=== PATIENT | female | born 1985 | race Caucasian/White ===

== ENCOUNTER 2016-12-08 15:33 | Outpatient (CLI) | payer OTHER | END 2016-12-08 15:34 | disposition home or self-care (01) | DX: G43.909 Migraine, unspecified, not intractable, without status migrainosus (principal) ==

== ENCOUNTER 2017-06-22 09:19 | Emergency (ER) | payer OTHER, MEDICAID ==
[2017-06-22] MEDS ORDERED: SODIUM CHLORIDE 0.9% 1,000 ML IV ONE (10:46)
[2017-06-22] MEDS ORDERED: diphenhydrAMINE INJ 50 MG/ML VIAL IVP STA (10:46)
[2017-06-22] MEDS ORDERED: PROCHLORPERAZINE 10 MG/2 ML VIAL IVP STA (10:46)
[2017-06-22] MEDS ORDERED: ACETAMINOPHEN 1,000 MG/100 ML 100 ML IV STA (10:47)
[2017-06-22] MEDS ORDERED: DEXAMETHASONE 10 MG/ML VIAL IVP STA (10:47)
--- NOTE | 2017-06-22 10:50 | ED Physician Documentation ---
PD HPI HEADACHE - Stated complaint Stated Complaint: HEADACHE - Chief complaint Chief Complaint: Neuro - History obtained from History obtained from: Patient - History of Present Illness Timing - onset: Last night Timing - details: Gradual onset Worst headache ever?: Worst headache ever? (No) Location: Global Associated symptoms: Nausea. No: Fever, Vomiting, Weakness, Numbness Similar symptoms before: Diagnosis (migraines) - Treatment prior to arrival Treatment prior to arrival: Flovatryptan x 3, without relief. - Additional information Additional information: The patient is a 32-year-old female with history of migraine headaches who presents with headache that started last night and continues today. It was gradual in onset. It is global, but more on the right side than the left. She denies fever, but reports photosensitivity and nausea. She denies vomiting. She has taken flovatriptan 3, without relief. Her last similar headache was about 6 months ago. Review of Systems Constitutional: denies: Fever Eyes: reports: Photophobia Ears: denies: Tinnitus/ringing Nose: denies: Congestion Throat: denies: Sore throat Cardiac: denies: Chest pain / pressure Respiratory: denies: Dyspnea, Cough GI: reports: Nausea. denies: Abdominal Pain, Vomiting : denies: Dysuria Skin: denies: Rash Musculoskeletal: denies: Back pain Neurologic: reports: Headache. 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 - Present Medications Home Medications: Ambulatory Orders Medication Instructions Recorded Confirmed HYDROcod/ACETAM 5/325 [[place] 5/325] 1 - 2 ea PO Q6H PRN #15 tablet 07/31/15 Orthotri Nesa 1 tab ORAL DAILY 07/31/15 07/31/15 Amitriptyline HCl 100 mg PO DAILY 07/03/16 07/03/16 Meloxicam [Mobic] 7.5 mg PO 07/03/16 Verapamil HCl [Verapamil ER] 120 mg PO DAILY 07/03/16 07/03/16 - Allergies Allergies/Adverse Reactions: Allergies Allergy/AdvReac Type Severity Reaction Status Date / Time iodine Allergy Rash Verified 07/31/15 10:41 - Social History Does the pt smoke?: No Smoking Status: Never smoker Does the pt drink ETOH?: No Does the pt have substance abuse?: No - Immunizations Immunizations are current?: Yes PD ED PE NORMAL - Vitals Vital signs reviewed: Yes (Mild hypertension.) - General General: Alert and oriented X 3, Well developed/nourished - HEENT HEENT: Atraumatic, PERRL, EOMI, Ears normal, Pharynx benign, Other (Fundi with sharp disc margins, without papilledema.) - Neck Neck: Supple, no meningeal sign, No adenopathy, No JVD - Cardiac Cardiac: RRR, No murmur - Respiratory Respiratory: No respiratory distress, Clear bilaterally - Abdomen Abdomen: Soft, Non tender - Back Back: No CVA TTP - Derm Derm: No rash - Extremities Extremities: No edema, No calf tenderness / cord - Neuro Neuro: Alert and oriented X 3, No motor deficit, No sensory deficit Results - Vitals Vitals: Oxygen O2 Source Room air PD MEDICAL DECISION MAKING - ED course Complexity details: reviewed old records, reviewed results, re-evaluated patient , considered differential, d/w patient ED course: The patient's presentation is significant for headache, most likely caused by migraine. There is no clinical evidence to suggest intracranial hemorrhage, meningitis, temporal arteritis, nor pseudotumor cerebri. Treatment in the emergency department included administration of normal saline 1 L IV, Compazine 10 mg IV, Benadryl 25 mg IV, dexamethasone 10 mg IV, and acetaminophen 1 g IV. The patient's symptoms completely resolved with the above treatment. I discussed with her potentially exacerbating factors, outpatient follow-up, as well as potentially worrisome signs or symptoms that should prompt reevaluation in the emergency department. Departure - Departure Disposition: 01 Home, Self Care Clinical Impression: Migraine Qualifiers: Migraine type: unspecified Status migrainosus presence: without status migrainosus Intractability: not intractable Qualified Code(s): G43.909 - Migraine, unspecified, not intractable, without status migrainosus Condition: Stable Instructions: ED Headache Migraine Follow-Up: Tara Vergara DO [Primary Care Provider] - Comments: Drink plenty of fluids. Continue to use Frova triptan as prescribed if needed for recurrent headache. Follow-up with your primary physician within 2 weeks. Call to schedule appointment. Return to the emergency department if you develop increasing headache, persistent vomiting, or otherwise worsening symptoms. Discharge Date/Time: 06/22/17 12:36
[2017-06-22] MEDS ORDERED: diphenhydrAMINE INJ 50 MG/ML VIAL ONE (11:02)
[2017-06-22] MEDS ORDERED: PROCHLORPERAZINE 10 MG/2 ML VIAL ONE (11:03)
[2017-06-22] MEDS ORDERED: DEXAMETHASONE 10 MG/ML VIAL ONE (11:03)
[2017-06-22] MEDS ORDERED: ACETAMINOPHEN 1,000 MG/100 ML 100 ML IV ONE (11:03)
[2017-06-22] MEDS ORDERED: SODIUM CHLORIDE FLUSH 0.9% 10 ML SYRINGE IVP ONE (11:03)
[2017-06-22 11:46] VITALS: BP 129/81
== END 2017-06-22 12:36 | disposition home or self-care (01) ==
LOC: ED 09:19
DX: G43.909 Migraine, unspecified, not intractable, without status migrainosus (principal); R11.0 Nausea; H53.149 Visual discomfort, unspecified
CPT/HCPCS: 96374; 96375; 99283; 99284; J0131

== ENCOUNTER 2017-07-31 11:59 | Emergency (ER) | payer OTHER, MEDICAID ==
[2017-07-31] MEDS ORDERED: MAG HYDROX/AL HYDROX/SIMETH 30 ML UDC PO STA (14:16)
[2017-07-31] MEDS ORDERED: LIDOCAINE VISCOUS 2% 15 ML UDC MM STA (14:16)
--- NOTE | 2017-07-31 14:19 | ED Physician Documentation ---
PD HPI CHEST PAIN - Stated complaint Stated Complaint: CP X1 WK - Chief complaint Chief Complaint: General - History obtained from History obtained from: Patient - History of Present Illness Timing - onset: How many weeks ago (1) Timing - onset during: Rest Timing - duration: Weeks (1) Timing - details: Gradual onset, Still present, Waxing and waning Quality: Pressure, Tightness Location: Substernal Radiation: Back Improved by: Nothing Worsened by: Other (nothing) Associated symptoms: Cough. No: Shortness of air, Diaphoresis, Nausea, Vomiting , Feeling faint / dizzy, General Weakness, Palpitations Similar symptoms before: Has not had sx before Recently seen: Not recently seen - Additional information Additional information: 32-year-old female is developed pain in the central chest with radiation to her back for the past week. She has had this pain in episodes lasting 4-5 hours. She does not think this is related to eating food. She has had a cough nonproductive of sputum and she has not had fever chills or sweats. Review of Systems Constitutional: denies: Fever, Chills, Myalgias Eyes: denies: Decreased vision Ears: denies: Ear pain Nose: denies: Congestion Throat: denies: Sore throat Cardiac: reports: Chest pain / pressure. denies: Palpitations Respiratory: reports: Cough. 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 - Present Medications Home Medications: Ambulatory Orders Medication Instructions Recorded Confirmed HYDROcod/ACETAM 5/325 [[place] 5/325] 1 - 2 ea PO Q6H PRN #15 tablet 07/31/15 Orthotri Nesa 1 tab ORAL DAILY 07/31/15 07/31/15 Amitriptyline HCl 100 mg PO DAILY 07/03/16 07/03/16 Meloxicam [Mobic] 7.5 mg PO 07/03/16 Verapamil HCl [Verapamil ER] 120 mg PO DAILY 07/03/16 07/03/16 - Allergies Allergies/Adverse Reactions: Allergies Allergy/AdvReac Type Severity Reaction Status Date / Time iodine Allergy Rash Verified 07/31/15 10:41 - Social History Does the pt smoke?: No Smoking Status: Never smoker Does the pt drink ETOH?: No Does the pt have substance abuse?: No - Immunizations Immunizations are current?: Yes PD ED PE NORMAL - Vitals Vital signs reviewed: Yes (hypertensive) - General General: Alert and oriented X 3, No acute distress, Well developed/nourished - HEENT HEENT: Atraumatic, PERRL, EOMI, Ears normal, Moist mucous membranes, Pharynx benign, Dentition benign - Neck Neck: Supple, no meningeal sign, No bony TTP - Cardiac Cardiac: RRR, No murmur - Respiratory Respiratory: No respiratory distress, Clear bilaterally, Other (no chest wall pain to palpation ) - Abdomen Abdomen: Soft, Non tender - Back Back: No CVA TTP, No spinal TTP - Derm Derm: Normal color, Warm and dry, No rash - Extremities Extremities: No deformity, No edema - Neuro Neuro: No motor deficit, No sensory deficit - Psych Psych: Normal mood, Normal affect Results - Vitals Vitals: Vital Signs - 24 hr 07/31/17 07/31/17 07/31/17 12:07 13:43 15:05 Temperature 36.1 C L 35.9 C L 36.3 C L Heart Rate 91 95 100 Respiratory 18 16 18 Rate Blood Pressure 139/96 H 135/69 H 129/96 H O2 Saturation 100 99 Oxygen O2 Source Room air - EKG (time done) 1222 Rate: Rate (enter#) (97) Rhythm: NSR Ischemia: Normal ST segments Compare to prior EKG: Old EKG unavailable Computer interpretation: Agree with computer - Labs Labs: Laboratory Tests 07/31/17 07/31/17 07/31/17 14:30 14:30 14:30 WBC 8.6 RBC 4.77 Hgb 14.0 Hct 40.9 MCV 85.7 MCH 29.3 MCHC 34.2 RDW 12.8 Plt Count 298 MPV 6.7 L Neut # 5.5 Lymph # 2.4 [place] # 0.6 Eos # 0.1 Baso # 0.0 Absolute Nucleated RBC 0.00 Nucleated RBC % 0.0 D-Dimer Sodium 138 Potassium 3.9 Chloride 103 Carbon Dioxide 27 Anion Gap 8.0 BUN 10 Creatinine 0.7 Estimated GFR (MDRD) 98 Glucose 89 Calcium 9.3 Total Bilirubin 0.6 AST 17 ALT 13 Alkaline Phosphatase 33 L Troponin I < 0.04 Total Protein 7.3 Albumin 4.4 Globulin 2.9 Albumin/Globulin Ratio 1.5 Lipase 29 07/31/17 14:30 WBC RBC Hgb Hct MCV MCH MCHC RDW Plt Count MPV Neut # Lymph # [place] # Eos # Baso # Absolute Nucleated RBC Nucleated RBC % D-Dimer 158.8 L Sodium Potassium Chloride Carbon Dioxide Anion Gap BUN Creatinine Estimated GFR (MDRD) Glucose Calcium Total Bilirubin AST ALT Alkaline Phosphatase Troponin I Total Protein Albumin Globulin Albumin/Globulin Ratio Lipase - Rads (name of study) 2 veiw chest Radiology: Prelim report reviewed (Impression: Negative chest.), EMP read indepedently, See rad report Procedures - Bedside sono Bedside sono by EMP: With use of bedside ultrasound the gallbladder is examined there is no evidence of sonographic tenderness there are no obvious stones. No obvious wall thickening or pericholecystic fluid. There does appear to be flat fatty infiltrate of the liver. PD MEDICAL DECISION MAKING - ED course Complexity details: reviewed old records, reviewed results, re-evaluated patient , considered differential, d/w patient Departure - Departure Disposition: 01 Home, Self Care Clinical Impression: Chest pain of uncertain etiology Condition: Stable Instructions: ED Chest Pain Atypical Unkn Cause Follow-Up: Tara Vergara DO [Primary Care Provider] -
[2017-07-31 14:37] LABS: BASOPHILS % (AUTO) 0.4 %; EOSINOPHILS # (AUTO) 0.1 10^3/uL (0.0-0.7); EOSINOPHILS % (AUTO) 1.2 %; HCT - HEMATOCRIT 40.9 % (37.0-47.0); LYMPHOCYTES # (AUTO) 2.4 10^3/uL (1.5-3.5); LYMPHOCYTES % (AUTO) 27.7 %; MEAN CORPUSCULAR HEMOGLOBIN 29.3 pg (27.0-31.0); MEAN CORPUSCULAR HGB CONC 34.2 g/dL (32.0-36.0); MEAN CORPUSCULAR VOLUME 85.7 fL (81.0-99.0); MEAN PLATELET VOLUME 6.7 fL (7.9-10.8); MONOCYTES # (AUTO) 0.6 10^3/uL (0.0-1.0); MONOCYTES % (AUTO) 6.5 %; NEUTROPHILS # (AUTO) 5.5 10^3/uL (1.5-6.6); NEUTROPHILS % (AUTO) 64.2 %; RED BLOOD COUNT 4.77 10^6/uL (4.20-5.40); RED CELL DISTRIBUTION WIDTH 12.8 % (12.0-15.0); UNCORRECTED WHITE BLOOD COUNT 8.6 x10^3/uL; WHITE BLOOD COUNT 8.6 x10^3/uL (4.8-10.8)
[2017-07-31] MEDS ORDERED: LIDOCAINE VISCOUS 2% 15 ML UDC MM ONE (14:37)
[2017-07-31] MEDS ORDERED: MAG HYDROX/AL HYDROX/SIMETH 30 ML UDC ONE (14:37)
[2017-07-31 14:50] LABS: ALBUMIN/GLOBULIN RATIO 1.5 (1.0-2.2); BILIRUBIN,TOTAL 0.6 mg/dL (0.2-1.0); CALCIUM 9.3 mg/dL (8.5-10.3); CREATININE 0.7 mg/dL (0.4-1.0); POTASSIUM 3.9 mmol/L (3.5-5.0); TOTAL PROTEIN 7.3 g/dL (6.7-8.2)
[2017-07-31 15:07] VITALS: BP 129/96
--- NOTE | 2017-07-31 15:19 | XRAY Preliminary Report ---
Exam: XR Chest 2 View PA/LAT IMPRESSION: Negative chest. [facility] SITE ID: [id number]
--- NOTE | 2017-07-31 15:22 | XRAY Report ---
EXAM: CHEST RADIOGRAPHY EXAM DATE: 07/31/2017 02:58 PM. CLINICAL HISTORY: Cough chest pain central . COMPARISON: None. TECHNIQUE: 2 views. FINDINGS: Lungs/Pleura: No focal opacities evident. No pleural effusion. No pneumothorax. Normal volumes. Mediastinum: Heart and mediastinal contours are unremarkable. Other: None. IMPRESSION: Negative chest. [facility] Referring Provider Line: [phone] SITE ID: [id number]
[2017-07-31] MEDS ORDERED: KETOROLAC 60 MG/2 ML VIAL IM STA (15:37)
[2017-07-31] MEDS ORDERED: KETOROLAC 60 MG/2 ML VIAL ONE (16:01)
== END 2017-07-31 16:19 | disposition home or self-care (01) ==
LOC: ED 11:59
DX: R07.9 Chest pain, unspecified (principal)
CPT/HCPCS: 36415; 71020; 80053; 83690; 84484; 85025; 85379; 93005; 96372; 99283; 99284; A9270

== ENCOUNTER 2017-08-02 08:00 | Outpatient (CLI) | payer OTHER, MEDICAID ==
[2017-08-02 20:12] LABS: H. PYLORI IGG ANTIBODY Negative (Negative); HPYLORI NEG QC Negative (Negative); HPYLORI POS QC POSITIVE (Positive)
== END 2017-08-02 08:01 | disposition home or self-care (01) ==
LOC: LAB.WCP 08:00
PROVIDERS: ATTEND Family Medicine
DX: K21.9 Gastro-esophageal reflux disease without esophagitis (principal)
CPT/HCPCS: 36415; 87339

== ENCOUNTER 2017-08-06 09:04 | Outpatient (CLI) | payer OTHER, MEDICAID | END 2017-08-06 09:05 | disposition home or self-care (01) | LOC: DI 09:04 | PROVIDERS: ATTEND Family Medicine | DX: R07.89 Other chest pain (principal); R01.1 Cardiac murmur, unspecified | CPT/HCPCS: 93306 ==

== ENCOUNTER 2018-02-03 09:43 | Emergency (ER) | payer OTHER, MEDICAID ==
[2018-02-03 09:55] VITALS: BP 184/110
--- NOTE | 2018-02-03 10:39 | ED Physician Documentation ---
PD HPI ABD PAIN - Stated complaint Stated Complaint: CONSTIPATION/S/P SURGERY - Chief complaint Chief Complaint: Abd Pain - History obtained from History obtained from: Patient, Family - History of Present Illness Timing - onset: How many days ago (8) Timing - duration: Days (8) Timing - details: Gradual onset, Still present Quality: Cramping, Sharp, Fullness/distended, Pain Location: All over / everywhere Improved by: BM Worsened by: Breathing, Position, Palpation Associated symptoms: Constipation. No: Fever, Nausea, Vomiting Similar symptoms before: Diagnosis (constipation) Recently seen: Surgery - Additional information Additional information: 32-year-old female with chronic back pain has recently had a spinal stimulator placed and she has not had a bowel movement since 2 days prior to the procedure. She continues to be on pain medication she is on Dilaudid now orally. She has previously had issues with constipation and has been able to control this with stool softeners and usually has a bowel regimen with a bowel movement every 2 days. She does have some sensation of feeling bloated and full as well as some cramping. She is taking stool softeners she has tried an enema but she has not used milk of magnesia or magnesium citrate. Review of Systems Constitutional: denies: Fever, Chills Eyes: denies: Decreased vision Ears: denies: Ear pain Nose: denies: Congestion Throat: denies: Sore throat Cardiac: denies: Chest pain / pressure, Palpitations Respiratory: denies: Dyspnea, Cough GI: reports: Abdominal Pain, Constipation. denies: Nausea, Vomiting : denies: Dysuria, Frequency Skin: denies: Rash Musculoskeletal: reports: Back pain. 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 - Present Medications Home Medications: Ambulatory Orders Medication Instructions Recorded Confirmed HYDROcod/ACETAM 5/325 [[place] 5/325] 1 - 2 ea PO Q6H PRN #15 tablet 07/31/15 Orthotri Nesa 1 tab ORAL DAILY 07/31/15 07/31/15 Amitriptyline HCl 100 mg PO DAILY 07/03/16 07/03/16 Meloxicam [Mobic] 7.5 mg PO 07/03/16 Verapamil HCl [Verapamil ER] 120 mg PO DAILY 07/03/16 07/03/16 - Allergies Allergies/Adverse Reactions: Allergies Allergy/AdvReac Type Severity Reaction Status Date / Time iodine Allergy Rash Verified 02/03/18 09:55 - Social History Does the pt smoke?: No Smoking Status: Never smoker Does the pt drink ETOH?: No Does the pt have substance abuse?: No - Immunizations Immunizations are current?: Yes PD ED PE NORMAL - Vitals Vital signs reviewed: Yes (Tachycardic and hypertensive) - General General: Alert and oriented X 3, Well developed/nourished, Other (Apprehensive appearing female in no obvious distress) - HEENT HEENT: Atraumatic, PERRL, EOMI - Neck Neck: Supple, no meningeal sign, No bony TTP - Cardiac Cardiac: RRR, No murmur - Respiratory Respiratory: No respiratory distress, Clear bilaterally - Abdomen Abdomen: Soft, Other (Diminished bowel sounds with generally mildly tender distended abdomen) - Back Back: No CVA TTP, No spinal TTP, Other (There are 2 surgical sites are covered with dense dressing. There is no surrounding erythema. There are 2 stripes of erythema down the back consistent with a mild reaction to adhesive from what appears to be the surgical drapes.) - Derm Derm: Normal color, Warm and dry, No rash - Extremities Extremities: No deformity, No edema - Neuro Neuro: Alert and oriented X 3, certified hand therapist 2-12 intact, No motor deficit, No sensory deficit, Normal speech Eye Opening: Spontaneous Motor: Obeys Commands Verbal: Oriented GCS Score: 15 - Psych Psych: Normal mood, Normal affect Results - Vitals Vitals: Vital Signs - 24 hr 02/03/18 09:52 Temperature 36.4 C L Heart Rate 121 H Respiratory 20 Rate Blood Pressure 184/110 H O2 Saturation 99 Oxygen O2 Source Room air PD MEDICAL DECISION MAKING - ED course Complexity details: reviewed old records, reviewed results, re-evaluated patient , considered differential, d/w patient, d/w family ED course: 32-year-old female with narcotic induced constipation has been constipated for 8 days and she did not get relief with an enema she gave herself. Here in the emergency department she is administered a soapsuds enema with fair results. She obviously has more stool throughout the remainder of the colon and I have encouraged her to use a stimulant laxative like milk of magnesia or magnesium citrate from above. Departure - Departure Disposition: 01 Home, Self Care Clinical Impression: Constipation Qualifiers: Constipation type: drug induced constipation Qualified Code(s): K59.03 - Drug induced constipation Condition: Stable Instructions: ED Constipation Follow-Up: Tara Vergara DO [Primary Care Provider] - Comments: Today it appears your constipation is related to opiate induced slow transit. I recommend you use a stimulant type laxative from above such as magnesium citrate or milk of magnesia. The rash on your back appears to be a contact dermatitis and I recommend washing the skin and applying 1% hydrocortisone available over the counter.
== END 2018-02-03 11:28 | disposition home or self-care (01) ==
LOC: ED 09:43
DX: K59.03 Drug induced constipation (principal); T40.2X5A Adverse effect of other opioids, initial encounter; G89.29 Other chronic pain; Z97.8 Presence of other specified devices
CPT/HCPCS: 99282; 99283

== ENCOUNTER 2018-08-19 12:09 | Emergency (ER) | payer MEDICAID, OTHER ==
[2018-08-19 12:49] LABS: BILIRUBIN,URINE NEGATIVE (NEGATIVE); GLUCOSE, URINE (UA) NEGATIVE (NEGATIVE); KETONES,URINE (UA) NEGATIVE (NEGATIVE); LEUKOCYTE ESTERASE, URINE NEGATIVE (NEGATIVE); NITRITE,URINE NEGATIVE (NEGATIVE); OCCULT BLOOD,URINE MODERATE (NEGATIVE); PROTEIN,URINE NEGATIVE (NEGATIVE); UROBILINOGEN,URINE 0.2 (NORMAL) E.U./dL (NORMAL)
[2018-08-19 12:50] LABS: CLARITY,URINE HAZY (CLEAR)
[2018-08-19] MEDS ORDERED: ASPIRIN CHEW 81 MG TABLET PO STA (12:52)
[2018-08-19] MEDS ORDERED: SODIUM CHLORIDE 0.9% 1,000 ML IV ONE (12:52)
[2018-08-19] MEDS ORDERED: GI COCKTAIL 120 ML BOTTLE PO STA (12:56)
[2018-08-19 13:04] LABS: BACTERIA,URINE None Seen /HPF (None Seen); SQUAMOUS EPITHELIAL CELL,UR NONE SEEN (<= Few)
--- NOTE | 2018-08-19 13:21 | ED Physician Documentation ---
PD HPI CHEST PAIN - Stated complaint Stated Complaint: HIGH BP/CHEST PX - Chief complaint Chief Complaint: Cardiac - Additional information Additional information: 33-year-old female presents the emergency department for evaluation of retrost ernal chest pain which has been continuous for the past several hours. The patient's symptoms started spontaneously and are associated with increased belching. The patient denies radiation of the pain. The patient denies dyspnea on exertion. The patient does feel dizzy and lightheaded. The patient reports a higher than normal blood pressure. No specific triggering factors. No relieving factors. No other associated symptoms. 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 - Present Medications Home Medications: Ambulatory Orders Medication Instructions Recorded Confirmed Orthotri Nesa 1 tab ORAL DAILY 07/31/15 07/31/15 Cholecalciferol (Vitamin D3) 08/19/18 [Vitamin D3] Magnesium Oxide [Magnesium] 08/19/18 Nortriptyline HCl 08/19/18 SUMAtriptan [Sumatriptan] 08/19/18 Zolpidem Tartrate [Ambien] 08/19/18 - Allergies Allergies/Adverse Reactions: Allergies Allergy/AdvReac Type Severity Reaction Status Date / Time iodine Allergy Rash Verified 08/19/18 12:23 - Social History Does the pt smoke?: No Smoking Status: Never smoker Does the pt drink ETOH?: No Does the pt have substance abuse?: No - Immunizations Immunizations are current?: Yes PD ED PE NORMAL - General General: Alert and oriented X 3, No acute distress - HEENT HEENT: Atraumatic, PERRL, EOMI, Ears normal - Neck Neck: Supple, no meningeal sign - Cardiac Cardiac: RRR, Strong equal pulses - Respiratory Respiratory: No respiratory distress, Clear bilaterally - Abdomen Abdomen: Soft, Non tender - Derm Derm: Normal color - Extremities Extremities: No deformity, No edema - Neuro Neuro: Alert and oriented X 3, Normal speech - Psych Psych: Normal mood Results - Vitals Vitals: Vital Signs - 24 hr 08/19/18 08/19/18 08/19/18 12:19 14:20 16:15 Temperature 36.5 C Heart Rate 101 H 98 100 Respiratory 16 18 22 Rate Blood Pressure 184/94 H 156/99 H 157/100 H O2 Saturation 100 98 97 Oxygen O2 Source Room air - EKG (time done) 12:47 Rate: Rate (enter#) Rhythm: Sinus tachycardia [place]: Normal Intervals: Normal NV QRS: Normal Ischemia: Normal ST segments - Labs Labs: Laboratory Tests 08/19/18 08/19/18 08/19/18 12:40 13:09 13:09 WBC 5.9 RBC 5.05 Hgb 15.1 Hct 43.9 MCV 87.1 MCH 29.9 MCHC 34.4 RDW 12.6 Plt Count 340 MPV 6.6 L Neut # (Auto) 3.2 Lymph # (Auto) 2.0 [place] # (Auto) 0.5 Eos # (Auto) 0.2 Baso # (Auto) 0.0 Absolute Nucleated RBC 0.00 Nucleated RBC % 0.1 D-Dimer Sodium 138 Potassium 3.7 Chloride 101 Carbon Dioxide 28 Anion Gap 9.0 BUN 12 Creatinine 0.8 Estimated GFR (MDRD) 84 L Glucose 92 Calcium 9.5 Total Bilirubin 0.4 AST 21 ALT 19 Alkaline Phosphatase 42 CK-MB (CK-2) Troponin I Total Protein 8.0 Albumin 4.5 Globulin 3.5 Albumin/Globulin Ratio 1.3 Lipase 30 HCG, Quant Urine Color LIGHT YELLOW Urine Clarity HAZY Urine pH 6.0 Ur Specific [place] 1.010 Urine Protein NEGATIVE Urine Glucose (UA) NEGATIVE Urine Ketones NEGATIVE Urine Occult Blood MODERATE H Urine Nitrite NEGATIVE Urine Bilirubin NEGATIVE Urine Urobilinogen 0.2 (NORMAL) Ur Leukocyte Esterase NEGATIVE Urine RBC 6-10 H Urine WBC 0-3 Ur Squamous Epith Cells NONE SEEN Urine Bacteria None Seen Ur Microscopic Review INDICATED Urine Culture Comments NOT INDICATED 08/19/18 08/19/18 08/19/18 13:09 13:09 13:09 WBC RBC Hgb Hct MCV MCH MCHC RDW Plt Count MPV Neut # (Auto) Lymph # (Auto) [place] # (Auto) Eos # (Auto) Baso # (Auto) Absolute Nucleated RBC Nucleated RBC % D-Dimer 238.9 Sodium Potassium Chloride Carbon Dioxide Anion Gap BUN Creatinine Estimated GFR (MDRD) Glucose Calcium Total Bilirubin AST ALT Alkaline Phosphatase CK-MB (CK-2) 1.1 Troponin I < 0.04 Total Protein Albumin Globulin Albumin/Globulin Ratio Lipase HCG, Quant < 0.60 Urine Color Urine Clarity Urine pH Ur Specific [place] Urine Protein Urine Glucose (UA) Urine Ketones Urine Occult Blood Urine Nitrite Urine Bilirubin Urine Urobilinogen Ur Leukocyte Esterase Urine RBC Urine WBC Ur Squamous Epith Cells Urine Bacteria Ur Microscopic Review Urine Culture Comments 08/19/18 15:50 WBC RBC Hgb Hct MCV MCH MCHC RDW Plt Count MPV Neut # (Auto) Lymph # (Auto) [place] # (Auto) Eos # (Auto) Baso # (Auto) Absolute Nucleated RBC Nucleated RBC % D-Dimer Sodium Potassium Chloride Carbon Dioxide Anion Gap BUN Creatinine Estimated GFR (MDRD) Glucose Calcium Total Bilirubin AST ALT Alkaline Phosphatase CK-MB (CK-2) Troponin I < 0.04 Total Protein Albumin Globulin Albumin/Globulin Ratio Lipase HCG, Quant Urine Color Urine Clarity Urine pH Ur Specific [place] Urine Protein Urine Glucose (UA) Urine Ketones Urine Occult Blood Urine Nitrite Urine Bilirubin Urine Urobilinogen Ur Leukocyte Esterase Urine RBC Urine WBC Ur Squamous Epith Cells Urine Bacteria Ur Microscopic Review Urine Culture Comments - Rads (name of study) CTA chest Radiology: Final report received (IMPRESSION: Normal pulmonary CT angiogram. No pulmonary emboli. ) CXR Radiology: Final report received (No acute intrathoracic findings) PD MEDICAL DECISION MAKING - ED course ED course: The patient is a low risk per the heart score and her workup today does not reveal any acute abnormality that would necessitate admission to the hospital. The patient appears appropriate for discharge and further workup as an outpatient. I advised that she should talk with her primary care physician to arrange for an outpatient stress test. The patient understands and agrees. I discussed warning signs and recommended returning to the emergency department immediately for any worsening or any concerns. Departure - Departure Disposition: 01 Home, Self Care Clinical Impression: Chest pain Qualifiers: Chest pain type: unspecified Qualified Code(s): R07.9 - Chest pain, unspecified Condition: Good Instructions: ED Chest Pain [facility] Follow-Up: Tara Vergara DO [Primary Care Provider] - Within 1 week (Please ask your primary care physician to arrange for an outpatient stress test) Comments: Please return to the emergency department for worsening symptoms or any concerns.
--- NOTE | 2018-08-19 13:25 | XRAY Report ---
Reason: CP Procedure Date: 08/19/2018 Accession Number: [id number] / [id number] Procedure: XR - Chest 2 View X-Ray CPT Code: 58375 FULL RESULT: EXAM: CHEST RADIOGRAPHY EXAM DATE: 08/19/2018 12:58 PM. CLINICAL HISTORY: Hypertension, chest pain since this morning. COMPARISON: 07/31/2017. TECHNIQUE: 2 views. FINDINGS: Lungs/Pleura: No focal opacities evident. No pleural effusion. No pneumothorax. Normal volumes. Mediastinum: Heart and mediastinal contours are unremarkable. Other: Interval placement of a thoracic epidural stimulator array centered at T7-T8. IMPRESSION: 1. Thoracic epidural neurostimulator. 2. Otherwise stable, unremarkable exam. [facility]
[2018-08-19 13:31] LABS: BASOPHILS % (AUTO) 0.2 %; EOSINOPHILS # (AUTO) 0.2 10^3/uL (0.0-0.7); EOSINOPHILS % (AUTO) 3.4 %; HGB - HEMOGLOBIN 15.1 g/dL (12.0-16.0); LYMPHOCYTES % (AUTO) 34.1 %; MEAN CORPUSCULAR HEMOGLOBIN 29.9 pg (27.0-31.0); MEAN CORPUSCULAR HGB CONC 34.4 g/dL (32.0-36.0); MEAN CORPUSCULAR VOLUME 87.1 fL (81.0-99.0); MEAN PLATELET VOLUME 6.6 fL (7.9-10.8); MONOCYTES # (AUTO) 0.5 10^3/uL (0.0-1.0); MONOCYTES % (AUTO) 8.9 %; NEUTROPHILS # (AUTO) 3.2 10^3/uL (1.5-6.6); NEUTROPHILS % (AUTO) 53.4 %; PLT - PLATELET COUNT 340 10^3/uL (130-450); RED BLOOD COUNT 5.05 10^6/uL (4.20-5.40); RED CELL DISTRIBUTION WIDTH 12.6 % (12.0-15.0); WHITE BLOOD COUNT 5.9 x10^3/uL (4.8-10.8)
[2018-08-19 13:47] LABS: ALBUMIN 4.5 g/dL (3.2-5.5); ALBUMIN/GLOBULIN RATIO 1.3 (1.0-2.2); BILIRUBIN,TOTAL 0.4 mg/dL (0.2-1.0); CALCIUM 9.5 mg/dL (8.5-10.3); CREATININE 0.8 mg/dL (0.4-1.0)
[2018-08-19 13:51] LABS: TROPONIN I < 0.04 ng/mL (<0.49)
[2018-08-19 13:53] LABS: CREATINE KINASE MB 1.1 ng/mL (0.6-6.3)
[2018-08-19] MEDS ORDERED: MAG HYDROX/AL HYDROX/SIMETH 30 ML UDC PO ONE (14:00)
[2018-08-19] MEDS ORDERED: diphenhydrAMINE ELIXIR 25 MG/10 ML UDC PO ONE (14:00)
[2018-08-19] MEDS ORDERED: LIDOCAINE VISCOUS 2% 15 ML UDC MM ONE (14:00)
[2018-08-19] MEDS ORDERED: MORPHINE 2 MG/ML CARPUJECT IVP STA (14:29)
[2018-08-19] MEDS ORDERED: IOPAMIDOL-300 100 ML VIAL ONE (14:36)
[2018-08-19] MEDS ORDERED: IOPAMIDOL-300 100 ML VIAL IVP ONE (15:07)
--- NOTE | 2018-08-19 15:18 | CT Report ---
Reason: CP with elevated D-Dimer Procedure Date: 08/19/2018 Accession Number: [id number] / [id number] Procedure: CT - Chest Angio (PE) CPT Code: FULL RESULT: EXAM: CT ANGIOGRAM CHEST EXAM DATE: 08/19/2018 03:03 PM. CLINICAL HISTORY: Chest pain. Elevated D-Dimer. COMPARISON: None. TECHNIQUE: Routine helical imaging was performed through the chest in the pulmonary arterial phase. IV Contrast: 80 cc of Isovue-300. Reconstructions: Coronal 3-D MIP reconstructions.Sagittal and coronal. In accordance with CT protocol optimization, one or more of the following dose reduction techniques were utilized for this exam: automated exposure control, adjustment of mA and/or KV based on patient size, or use of iterative reconstructive technique. FINDINGS: Pulmonary Arteries: Diagnostic quality: Adequate through the segmental arteries. No evidence for acute or chronic pulmonary emboli. RV/LV is within normal limits. There is no interventricular septal bowing. There is no reflux of contrast material in the IVC. Lungs/Pleura: No consolidation, nodules, or edema. No effusions or pneumothorax. Mediastinum: Normal. No cardiac enlargement or adenopathy. Thoracic Aorta: Unremarkable. Upper Abdomen: Unremarkable. Other: Neurostimulator leads noted posterior to T10-T11. IMPRESSION: Normal pulmonary CT angiogram. No pulmonary emboli. RADIA
[2018-08-19 16:15] VITALS: BP 157/100
== END 2018-08-19 17:14 | disposition home or self-care (01) ==
LOC: ED 12:09
DX: R07.9 Chest pain, unspecified (principal); R00.0 Tachycardia, unspecified
CPT/HCPCS: 36415; 71046; 71275; 80053; 81001; 82553; 83690; 84484; 84702; 85025; 85379; 93005; 96361; 96374; 99283; A9270; Q9967; 81003; 87086

== ENCOUNTER 2018-08-23 13:35 | Emergency (ER) | payer OTHER ==
[2018-08-23 14:12] LABS: BASOPHILS % (AUTO) 0.4 %; EOSINOPHILS # (AUTO) 0.2 10^3/uL (0.0-0.7); EOSINOPHILS % (AUTO) 2.9 %; HGB - HEMOGLOBIN 14.1 g/dL (12.0-16.0); LYMPHOCYTES # (AUTO) 2.2 10^3/uL (1.5-3.5); LYMPHOCYTES % (AUTO) 36.4 %; MEAN CORPUSCULAR HGB CONC 34.8 g/dL (32.0-36.0); MEAN CORPUSCULAR VOLUME 86.3 fL (81.0-99.0); MEAN PLATELET VOLUME 6.4 fL (7.9-10.8); MONOCYTES # (AUTO) 0.5 10^3/uL (0.0-1.0); NEUTROPHILS # (AUTO) 3.1 10^3/uL (1.5-6.6); NEUTROPHILS % (AUTO) 52.3 %; PLT - PLATELET COUNT 284 10^3/uL (130-450); RED BLOOD COUNT 4.69 10^6/uL (4.20-5.40); RED CELL DISTRIBUTION WIDTH 12.6 % (12.0-15.0)
[2018-08-23 14:22] LABS: ALBUMIN/GLOBULIN RATIO 1.3 (1.0-2.2); BILIRUBIN,TOTAL 0.4 mg/dL (0.2-1.0); CREATININE 0.9 mg/dL (0.4-1.0)
[2018-08-23 16:10] VITALS: BP 154/101
[2018-08-23] MEDS ORDERED: KETOROLAC 60 MG/2 ML VIAL IM STA (16:15)
--- NOTE | 2018-08-23 16:19 | ED Physician Documentation ---
PD HPI CHEST PAIN - Stated complaint Stated Complaint: CHEST PX/HIGH BP - Chief complaint Chief Complaint: Cardiac - History obtained from History obtained from: Patient - History of Present Illness Timing - onset: How many days ago (4) Timing - onset during: Rest Timing - duration: Days (4) Timing - details: Gradual onset, Constant Pain level max: 5 Pain level now: 5 Quality: Pressure, Sharp Location: Substernal Radiation: Other (non-radiating) Improved by: Other (noting) Worsened by: Other (nothing) Associated symptoms: No: Shortness of air, Diaphoresis, Nausea, Vomiting, Feeling faint / dizzy, General Weakness, Palpitations, Cough Similar symptoms before: Diagnosis (atypical chest pain) Recently seen: Not recently seen Review of Systems Ten Systems: 10 systems reviewed and negative Constitutional: denies: Fever, Chills Ears: denies: Ear pain Nose: denies: Rhinorrhea / runny nose, Congestion Throat: denies: Sore throat Cardiac: denies: Palpitations, Pedal edema, Calf pain Respiratory: denies: Dyspnea, Cough, Hemoptysis, Wheezing GI: denies: Abdominal Pain, Nausea, Vomiting, Diarrhea Skin: denies: Rash Musculoskeletal: denies: Neck pain, Back pain Neurologic: denies: Focal weakness, Numbness, Headache PD PAST MEDICAL HISTORY - Past Medical History Past Medical History: Yes Respiratory: Asthma Neuro: Migraines Musculoskeletal: Chronic back pain - Past Surgical History 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 - Present Medications Home Medications: Ambulatory Orders Medication Instructions Recorded Confirmed Orthotri Nesa 1 tab ORAL DAILY 07/31/15 07/31/15 Cholecalciferol (Vitamin D3) 08/19/18 [Vitamin D3] Magnesium Oxide [Magnesium] 08/19/18 Nortriptyline HCl 08/19/18 Zolpidem Tartrate [Ambien] 08/19/18 Metoprolol Tartrate 25 mg PO 08/23/18 Pantoprazole Sodium [Protonix] 20 mg PO 08/23/18 oxyCODONE/ACET 5/325 [Percocet 5 1 each PO ONCE 08/23/18 08/23/18 mg/325 mg] - Allergies Allergies/Adverse Reactions: Allergies Allergy/AdvReac Type Severity Reaction Status Date / Time iodine Allergy Rash Verified 08/23/18 13:52 - Social History Does the pt smoke?: No Smoking Status: Never smoker Does the pt drink ETOH?: No Does the pt have substance abuse?: No - Immunizations Immunizations are current?: Yes PD ED PE NORMAL - Vitals Vital signs reviewed: Yes - General General: Alert and oriented X 3, No acute distress - HEENT HEENT: Moist mucous membranes - Neck Neck: Supple, no meningeal sign - Cardiac Cardiac: RRR, Strong equal pulses - Respiratory Respiratory: No respiratory distress, Clear bilaterally - Abdomen Abdomen: Soft, Non tender, Non distended, Other (Negative Obando sign) - Back Back: No CVA TTP, No spinal TTP - Derm Derm: Warm and dry - Extremities Extremities: No edema, No calf tenderness / cord - Neuro Neuro: Alert and oriented X 3 Results - Vitals Vitals: Vital Signs - 24 hr 08/23/18 08/23/18 13:50 16:10 Temperature 36.9 C Heart Rate 102 H 105 H Respiratory 16 19 Rate Blood Pressure 150/98 H 154/101 H O2 Saturation 100 99 Oxygen O2 Source Room air - EKG (time done) 1342 Rate: Rate (enter#) (98) Rhythm: NSR [place]: Normal Intervals: Normal [place] QRS: Normal Ischemia: Normal ST segments Computer interpretation: Agree with computer - Labs Labs: Laboratory Tests 08/23/18 08/23/18 08/23/18 14:05 14:05 14:05 WBC 6.0 RBC 4.69 Hgb 14.1 Hct 40.5 MCV 86.3 MCH 30.0 MCHC 34.8 RDW 12.6 Plt Count 284 MPV 6.4 L Neut # (Auto) 3.1 Lymph # (Auto) 2.2 Simpson # (Auto) 0.5 Eos # (Auto) 0.2 Baso # (Auto) 0.0 Absolute Nucleated RBC 0.00 Nucleated RBC % 0.0 Sodium 136 Potassium 3.6 Chloride 100 L Carbon Dioxide 26 Anion Gap 10.0 BUN 11 Creatinine 0.9 Estimated GFR (MDRD) 73 L Glucose 122 H Calcium 9.0 Total Bilirubin 0.4 AST 17 ALT 17 Alkaline Phosphatase 37 L Troponin I < 0.04 Total Protein 7.0 Albumin 4.0 Globulin 3.0 Albumin/Globulin Ratio 1.3 Lipase 34 PD MEDICAL DECISION MAKING - ED course Complexity details: reviewed results, re-evaluated patient, considered differential (No ST elevation [place], no aortic dissection, no PE, no tension pneumothorax, no aortic aneurysm), d/w patient ED course: Patient is a 33-year-old female who presents to the emergency department with atypical chest pain for the past 4 days. This been constant. No evidence of acute coronary syndrome. Negative CT pulmonary angiogram a few days ago. She is well-appearing, nontoxic. Afebrile. No evidence of gallstones or cholecystitis. No laboratory abnormalities. Given Toradol and this mildly helped. She had tried a GI cocktail on Sunday and this did not change much. Her doctor started her on metoprolol and Prilosec 2 days ago. We will have her continue those medications and follow-up with her doctor. Patient counseled regarding signs and symptoms for which I believe and urgent re-evaluation would be necessary. Patient with good understanding of and agreement to plan and is comfortable going home at this time This document was made in part using voice recognition software. While efforts are made to proofread this document, sound alike and grammatical errors may occur. Departure - Departure Disposition: 01 Home, Self Care Clinical Impression: Atypical chest pain Condition: Good Instructions: ED Chest Pain Atypical Unkn Cause Follow-Up: Tara Vergara DO [Primary Care Provider] - Within 1 week Comments: The cause of your symptoms is unclear today. Follow up with your doctor for further care.
== END 2018-08-23 16:45 | disposition home or self-care (01) ==
LOC: ED 13:35
DX: R07.89 Other chest pain (principal)
CPT/HCPCS: 36415; 80053; 83690; 84484; 85025; 93005; 96372; 99283

== ENCOUNTER 2018-08-30 07:31 | Outpatient (CLI) | payer OTHER ==
[2018-08-30 08:28] LABS: CHOLESTEROL 214 mg/dL; HDL CHOLESTEROL 54 mg/dL; LDL CHOLESTEROL,CALCULATED 122 mg/dL; LDL/HDL RATIO 2.3 (<4.4); VLDL CHOLESTEROL 38 mg/dL
== END 2018-08-30 07:32 | disposition home or self-care (01) ==
LOC: LAB 07:31
PROVIDERS: ATTEND Family Medicine
DX: I10 Essential (primary) hypertension (principal)
CPT/HCPCS: 36415; 80061; 83721

== ENCOUNTER 2018-09-02 14:20 | Outpatient (CLI) | payer OTHER ==
[2018-09-02 19:12] LABS: BASOPHILS % (AUTO) 0.4 %; EOSINOPHILS # (AUTO) 0.1 10^3/uL (0.0-0.7); EOSINOPHILS % (AUTO) 2.2 %; HGB - HEMOGLOBIN 13.3 g/dL (12.0-16.0); LYMPHOCYTES # (AUTO) 1.8 10^3/uL (1.5-3.5); LYMPHOCYTES % (AUTO) 30.2 %; MEAN CORPUSCULAR HEMOGLOBIN 29.3 pg (27.0-31.0); MEAN CORPUSCULAR HGB CONC 33.6 g/dL (32.0-36.0); MEAN PLATELET VOLUME 7.3 fL (7.9-10.8); MONOCYTES # (AUTO) 0.5 10^3/uL (0.0-1.0); MONOCYTES % (AUTO) 7.6 %; NEUTROPHILS # (AUTO) 3.6 10^3/uL (1.5-6.6); NEUTROPHILS % (AUTO) 59.6 %; PLT - PLATELET COUNT 276 10^3/uL (130-450); RED BLOOD COUNT 4.54 10^6/uL (4.20-5.40); RED CELL DISTRIBUTION WIDTH 12.4 % (12.0-15.0); WHITE BLOOD COUNT 6.1 x10^3/uL (4.8-10.8)
[2018-09-02 19:39] LABS: ALBUMIN 3.8 g/dL (3.2-5.5); ALBUMIN/GLOBULIN RATIO 1.2 (1.0-2.2); ALKALINE PHOSPHATASE 30 IU/L (42-121); ALT ALANINE AMINOTRANSFERASE 14 IU/L (10-60); AST ASPARTATE AMINOTRANSFERASE 18 IU/L (10-42); BILIRUBIN,TOTAL 0.4 mg/dL (0.2-1.0); BUN - BLOOD UREA NITROGEN 13 mg/dL (6-20); CALCIUM 9.3 mg/dL (8.5-10.3); CARBON DIOXIDE - CO2 26 mmol/L (21-32); CHLORIDE 102 mmol/L (101-111); CREATININE 0.7 mg/dL (0.4-1.0); GFR - MDRD 98 (>89); GLUCOSE 117 mg/dL (70-100); LIPASE 32 U/L (22-51); SODIUM 137 mmol/L (135-145)
[2018-09-02 19:47] LABS: HCG,QUALITATIVE BLOOD NEGATIVE
== END 2018-09-02 14:21 | disposition home or self-care (01) ==
LOC: LAB.WCP 14:20
PROVIDERS: ATTEND Family Medicine
DX: R10.11 Right upper quadrant pain (principal)
CPT/HCPCS: 36415; 80053; 83690; 84703; 85025

== ENCOUNTER 2018-09-02 21:38 | Outpatient (CLI) | payer OTHER ==
--- NOTE | 2018-09-02 23:13 | Ultrasound Report ---
Reason: ABDOMINAL PAIN Procedure Date: 09/02/2018 Accession Number: [id number] / [id number] Procedure: US - Abdomen Complete CPT Code: FULL RESULT: EXAM: ABDOMEN ULTRASOUND EXAM DATE: 09/02/2018 09:54 PM. CLINICAL HISTORY: ABDOMINAL PAIN. COMPARISON: None. TECHNIQUE: Real-time scanning was performed with static images obtained. FINDINGS: Liver: Normal in size and echotexture. 15 cm. Main portal vein flow: Hepatopetal. Gallbladder: Normal. No stones, wall thickening, or sonographic Obando's sign. Biliary System: Common bile duct measures 3 mm. No intrahepatic or extrahepatic ductal dilatation. Pancreas: Visualized portion is unremarkable. Kidneys: Right: 11.5 cm longitudinally. Normal. No contour-deforming mass, stones, or hydronephrosis. Left: 11.0 cm longitudinally. Normal. No contour-deforming mass, stones, or hydronephrosis. Spleen: 13.9 cm. Normal in size and echotexture. Aorta and Inferior Vena Cava: Unremarkable. Other: None. IMPRESSION: Normal abdomen ultrasound. Results called to Dr. Vergara on 09/02/2018 11:10 PM. RADIA
== END 2018-09-02 21:39 | disposition home or self-care (01) ==
LOC: DI 21:38
PROVIDERS: ATTEND Family Medicine
DX: R10.11 Right upper quadrant pain (principal)
CPT/HCPCS: 36415; 76700; 80053; 83690; 84703; 85025

== ENCOUNTER 2018-09-06 08:39 | Outpatient (CLI) | payer OTHER ==
--- NOTE | 2018-09-06 14:04 | CARDIAC PROCEDURE NOTE ---
DATE OF SERVICE: 09/06/2018 Physician: Jocelyne Zarco MD, [facility] INDICATION: Chest pain. CARDIAC RISK FACTORS: Family history of heart disease. SUMMARY: After signing informed consent, the patient performed treadmill exercise stress testing using a Carlyle protocol. Resting heart rate 97, peak heart rate 160 (85% predicted maximum heart rate for age). Resting blood pressure 140/84, peak blood pressure 160/80. The patient exercised for 7 minutes and 39 seconds on a Carlyle protocol. She achieved a peak heart rate of 160 (85% PMHR) and 9.59 METS. The patient had minimal shortness of breath. The patient had 3/10 chest pain, which was present pretesting, unchanged throughout all stages of the exercise test, and unchanged in recovery. RESTING EKG: Normal sinus rhythm, biphasic T waves in leads III and aVF. EKG AT [place]: No new ST segment or T-wave changes. SUMMARY 1. Good exercise tolerance. 2. Borderline abnormal resting EKG. 3. No ischemic changes by EKG criteria on a Carlyle protocol treadmill stress test at an adequate heart rate achieved. 4. No imaging study was ordered. cc: Paulina Marroquin PA-C TD: 09/06/2018 12:40 MTDEmanuel
== END 2018-09-06 08:40 | disposition home or self-care (01) ==
LOC: DI 08:39
PROVIDERS: ATTEND Physician Assistant
DX: R07.89 Other chest pain (principal); R94.31 Abnormal electrocardiogram [ECG] [EKG]
CPT/HCPCS: 93017

== ENCOUNTER 2018-09-13 08:45 | Outpatient (CLI) | payer OTHER ==
[2018-09-13] MEDS ORDERED: SINCALIDE 5 MCG VIAL ONE (09:42)
[2018-09-13] MEDS ORDERED: SODIUM CHLORIDE 0.9% IV ONE (15:23)
[2018-09-13] MEDS ORDERED: SINCALIDE IV ONE (15:23)
--- NOTE | 2018-09-15 16:14 | Nuclear Medicine Report ---
Reason: ABDOMINAL PAIN, RUQ Procedure Date: 09/13/2018 Accession Number: [id number] / [id number] Procedure: NM - Hepatobiliary HIDA w/ Rx CPT Code: FULL RESULT: EXAM: HEPATOBILIARY SCAN WITH CCK/KINEVAC ADMINISTRATION EXAM DATE: 09/13/2018 03:24 PM. CLINICAL HISTORY: ABDOMINAL PAIN, RUQ. COMPARISON: None. TECHNIQUE: Following the intravenous administration of 5.1 mCi of Tc99m Mebrofenin, a hepatobiliary scan was done centered on the liver and gallbladder in multiple sequential images and projections. Following the intravenous administration of 1.6 mcg of CCK/ Kinevac over the course of approximately 60 minutes, dynamic imaging was done and the gallbladder ejection fraction was calculated. FINDINGS: Normal extraction of tracer from the blood pool indicating normal hepatocellular function. The liver size and shape is grossly within normal limits. Appearance of tracer in the biliary tree as early as 0-5 minutes, within normal limits. Appearance of tracer in the gallbladder as early as 5-10 minutes, within normal limits, with good progression of filling throughout the remainder of the initial hour. Appearance of tracer in the small bowel following CCK administration. With CCK administration, the gallbladder demonstrates an effective contraction. The gallbladder ejection fraction is calculated to be 90%, well above the lower limit of normal of 38% for a 60-minute injection. No evidence of enteric reflux into the stomach. No significant collection of tracer remaining in the common bile duct by the end of the study. IMPRESSION: 1. No scintigraphic evidence of acute cholecystitis. 2. Patent common bile duct. 3. Gallbladder ejection fraction is in the normal range. 4. Delayed biliary to bowel transit. This is a nonspecific finding that can be seen in a subset of normal patients, however differential considerations include biliary dyskinesia and chronic cholecystitis, among others. RADIA
== END 2018-09-13 08:46 | disposition home or self-care (01) ==
LOC: DI 08:45
PROVIDERS: ATTEND Family Medicine
DX: R10.11 Right upper quadrant pain (principal)
CPT/HCPCS: 78227; J7040

== ENCOUNTER 2018-09-27 10:26 | Emergency (ER) | payer OTHER ==
[2018-09-27 10:35] VITALS: BP 163/103
[2018-09-27] MEDS ORDERED: KETOROLAC 60 MG/2 ML VIAL IM STA (11:19)
[2018-09-27] MEDS ORDERED: DEXAMETHASONE 10 MG/ML VIAL PO STA (11:20)
[2018-09-27] MEDS ORDERED: diazePAM 5 MG TABLET PO STA (11:20)
--- NOTE | 2018-09-27 11:23 | ED Physician Documentation ---
PD HPI BACK PAIN - Stated complaint Stated Complaint: BK PX - Chief complaint Chief Complaint: Back Pain - History obtained from History obtained from: Patient - History of Present Illness Timing - onset: Yesterday Timing - details: Still present Location: Lower Quality: Pain, Spasm, Similar to prior episodes Similar symptoms before: Diagnosis (History of chronic, recurrent low back pain.) - Treatment prior to arrival Treatment prior to arrival: Percocet one tablet this morning, without relief. - Additional information Additional information: The patient is a 33-year-old female with a history of chronic recurrent low back pain, on pain management contract, who presents with recurrent exacerbation of her low back pain. She has had spasms in her low back for the past 2 days. She denies any traumatic injury. She denies fever, urinary incontinence, or weakness. She reports having intermittent numbness in both legs. She denies current numbness. She reports nausea, without vomiting. She took one Percocet this morning without relief. The last time she had a pain this severe was about 6 months ago. Review of Systems Constitutional: denies: Fever Nose: denies: Congestion Throat: denies: Sore throat Respiratory: denies: Dyspnea, Cough GI: reports: Nausea. denies: Abdominal Pain, Vomiting : denies: Dysuria Skin: denies: Rash Musculoskeletal: reports: Back pain. 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 - Present Medications Home Medications: Ambulatory Orders Medication Instructions Recorded Confirmed Orthotri Nesa 1 tab ORAL DAILY 07/31/15 07/31/15 Cholecalciferol (Vitamin D3) 08/19/18 [Vitamin D3] Magnesium Oxide [Magnesium] 08/19/18 Nortriptyline HCl 08/19/18 Zolpidem Tartrate [Ambien] 08/19/18 Metoprolol Tartrate 25 mg PO 08/23/18 Pantoprazole Sodium [Protonix] 20 mg PO 08/23/18 oxyCODONE/ACET 5/325 [Percocet 5 1 each PO ONCE 08/23/18 08/23/18 mg/325 mg] Cyclobenzaprine [Flexeril] 10 mg PO TID PRN #20 tablet 09/27/18 - Allergies Allergies/Adverse Reactions: Allergies Allergy/AdvReac Type Severity Reaction Status Date / Time iodine Allergy Rash Verified 09/27/18 19:51 - Social History Does the pt smoke?: No Smoking Status: Never smoker Does the pt drink ETOH?: No Does the pt have substance abuse?: No - Immunizations Immunizations are current?: Yes PD ED PE NORMAL - Vitals Vital signs reviewed: Yes (Hypertensive) - General General: Alert and oriented X 3, Well developed/nourished - HEENT HEENT: Atraumatic, Moist mucous membranes - Neck Neck: Supple, no meningeal sign, No bony TTP, No JVD - Cardiac Cardiac: RRR, No murmur - Respiratory Respiratory: No respiratory distress, Clear bilaterally - Abdomen Abdomen: Soft, Non tender - Back Back: No CVA TTP, No spinal TTP - Derm Derm: No rash - Extremities Extremities: No edema, No calf tenderness / cord, Other (Straight leg raise negative bilaterally.) - Neuro Neuro: Alert and oriented X 3, No motor deficit, No sensory deficit, Normal speech, Other (DTR's 2+ and equal bilaterally in the patellar and Achilles tendons.) Results - Vitals Vitals: Vital Signs - 24 hr 09/27/18 10:32 Temperature 36.2 C L Heart Rate 100 Respiratory 18 Rate Blood Pressure 163/103 H O2 Saturation 99 Oxygen O2 Source Room air - Labs Labs: Laboratory Tests 09/27/18 11:35 Urine Color STRAW Urine Clarity CLEAR Urine pH 7.5 Ur Specific [place] <=1.005 Urine Protein NEGATIVE Urine Glucose (UA) NEGATIVE Urine Ketones NEGATIVE Urine Occult Blood NEGATIVE Urine Nitrite NEGATIVE Urine Bilirubin NEGATIVE Urine Urobilinogen 0.2 (NORMAL) Ur Leukocyte Esterase NEGATIVE Ur Microscopic Review NOT INDICATED Urine Culture Comments NOT INDICATED PD MEDICAL DECISION MAKING - ED course Complexity details: reviewed old records, reviewed results, re-evaluated patient, considered differential, d/w patient ED course: The patient's presentation is most consistent with acute exacerbation of recurrent low back pain. Her clinical presentation does not suggest epidural abscess, spinal stenosis, or cauda equina syndrome. Treatment in the emergency department included administration of ketorolac 60 mg IM, and dexamethasone 10 mg orally, and diazepam 5 mg orally. She reports only minimal improvement of her symptoms with the above treatment. She is being discharged with prescription for Flexeril. She has Percocet at home that is prescribed by her pain management clinic. I discussed with her symptomatic treatment, outpatient follow-up, as well as potentially worrisome signs or symptoms that should prompt reevaluation in the emergency department. Departure - Departure Disposition: 01 Home, Self Care Clinical Impression: Acute exacerbation of chronic low back pain Condition: Stable Instructions: ED Spasm Back No Trauma Follow-Up: Tara Vergara DO [Primary Care Provider] - Prescriptions: Cyclobenzaprine [Flexeril] 10 mg PO TID PRN #20 tablet PRN Reason: Spasms Comments: Apply ice pack to your lower back intermittently for the next 3 days. You can use Flexeril as prescribed if needed for muscle spasms. You can use pain medication as previously prescribed by the pain management clinic. Follow-up with your primary physician within 1-2 weeks. Call to schedule an appointment. Return to the emergency department if increasing pain, numbness or weakness, or otherwise worsening symptoms. Forms: Activity restrictions Discharge Date/Time: 09/27/18 13:02
[2018-09-27 12:03] LABS: BILIRUBIN,URINE NEGATIVE (NEGATIVE); GLUCOSE, URINE (UA) NEGATIVE (NEGATIVE); KETONES,URINE (UA) NEGATIVE (NEGATIVE); LEUKOCYTE ESTERASE, URINE NEGATIVE (NEGATIVE); NITRITE,URINE NEGATIVE (NEGATIVE); OCCULT BLOOD,URINE NEGATIVE (NEGATIVE); PH,URINE 7.5 PH (5.0-7.5); PROTEIN,URINE NEGATIVE (NEGATIVE); UROBILINOGEN,URINE 0.2 (NORMAL) E.U./dL (NORMAL)
[2018-09-27 12:09] LABS: CLARITY,URINE CLEAR (CLEAR)
== END 2018-09-27 13:02 | disposition home or self-care (01) ==
LOC: ED 10:26
DX: G89.29 Other chronic pain (principal); M54.5 Low back pain
CPT/HCPCS: 81001; 81003; 87086; 99283

== ENCOUNTER 2018-09-27 19:38 | Emergency (ER) | payer OTHER ==
--- NOTE | 2018-09-27 20:27 | ED Physician Documentation ---
PD HPI BACK PAIN - Stated complaint Stated Complaint: BK PX - Chief complaint Chief Complaint: Back Pain - History obtained from History obtained from: Patient - History of Present Illness Timing - onset: Yesterday Timing - duration: Years Timing - details: Gradual onset, Still present Pain level max: 9 Pain level now: 9 Location: Mid, Lower Quality: Pain, Spasm, Sharp, Similar to prior episodes Associated symptoms: No: Fever, Weakness, Numbness, Incontinent of urine, Unable to urinate, Hematuria, Incontinent of stool Improves with: Nothing Worsened by: Movement, Other (Sitting) Contributing factors: No: Lifting (Sitting), Twisting, Trauma, Anticoagulated, Cancer, IVDA, Out of meds Similar symptoms before: Work up / diagnostics Recently seen: Emergency Dept - Treatment prior to arrival Treatment prior to arrival: 33-year-old female with history of asthma, migraine, chronic back pain with laminectomy in 2015 and the back stimulator on January 2018 going to pain management at [facility] in [place] is here with complain of low back pain since yesterday. Patient was seen here in the emergency room and discharged at about noontime. She stated she got the Toradol shot and Valium without any improvement. Patient from pain management is on Percocet 5/325. At discharge at noon time from our emergency room she was discharged on Flexeril. Patient stated she took the Flexeril at 5 PM and her Percocet at 6 PM and her pain persist so she decided to come back to the emergency room. Denied any recent trauma or turning or lifting injuries. Patient denies any associated symptoms with her chronic back. Her mid low back pain today has been similar to her previous pain.Patient was pointing at the upper sacral area of her back. The last time she was seen at her pain management was 3 weeks ago and her next appointment is October 09.Patient stated she had had MRI before but can no longer get them because of her back stimulator. Her last back x-ray was 2 years ago. Patient agreed to get it done here in the emergency room. Review of Systems Ten Systems: 10 systems reviewed and negative Constitutional: denies: Fever, Chills, Myalgias GI: denies: Abdominal Pain : denies: Dysuria, Incontinent Musculoskeletal: reports: Back pain. 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 Medications Home Medications: Ambulatory Orders Medication Instructions Recorded Confirmed Orthotri Nesa 1 tab ORAL DAILY 07/31/15 07/31/15 Cholecalciferol (Vitamin D3) 08/19/18 [Vitamin D3] Magnesium Oxide [Magnesium] 08/19/18 Nortriptyline HCl 08/19/18 Zolpidem Tartrate [Ambien] 08/19/18 Metoprolol Tartrate 25 mg PO 08/23/18 Pantoprazole Sodium [Protonix] 20 mg PO 08/23/18 oxyCODONE/ACET 5/325 [Percocet 5 1 each PO ONCE 08/23/18 08/23/18 mg/325 mg] Cyclobenzaprine [Flexeril] 10 mg PO TID PRN #20 tablet 09/27/18 - Allergies Allergies/Adverse Reactions: Allergies Allergy/AdvReac Type Severity Reaction Status Date / Time iodine Allergy Rash Verified 09/27/18 19:51 - Social History Does the pt smoke?: No Smoking Status: Never smoker Does the pt drink ETOH?: No Does the pt have substance abuse?: No - Immunizations Immunizations are current?: Yes - POLST Patient has POLST: No PD ED PE NORMAL - Vitals Vital signs reviewed: Yes - General General: Alert and oriented X 3, Well developed/nourished, Other (Patient is tearful related to her pain. Patient's comfort position is sitting on her right buttock.) - HEENT HEENT: Moist mucous membranes - Neck Neck: Supple, no meningeal sign, No bony TTP - Cardiac Cardiac: RRR, No murmur - Respiratory Respiratory: No respiratory distress, Clear bilaterally - Abdomen Abdomen: Normal bowel sounds, Soft, Non tender, Non distended - Back Back: No CVA TTP, No spinal TTP - Derm Derm: Normal color, Warm and dry, No rash - Extremities Extremities: No deformity, No tenderness to palpate, Normal ROM s pain, No edema - Neuro Neuro: Alert and oriented X 3, No motor deficit, No sensory deficit, Normal speech - Psych Psych: Normal mood, Normal affect Results - Vitals Vitals: Vital Signs - 24 hr 09/27/18 09/27/18 09/27/18 19:48 20:20 21:15 Temperature 36.5 C Heart Rate 136 H 117 H 109 H Respiratory 18 18 18 Rate Blood Pressure 170/99 H 173/99 H O2 Saturation 99 99 98 Oxygen O2 Source Room air - Labs Labs: Laboratory Tests 09/27/18 20:25 Ur Specific [place] 1.010 Urine HCG, Qual NEGATIVE PD MEDICAL DECISION MAKING - ED course Complexity details: reviewed results, re-evaluated patient, considered differential (Chronic back pain, arthritis or degenerative disease, low pain tolerance, Narcotic seeking, cauda equina, fracture), d/w patient ED course: 2204Patient informed of x-ray results. Patient stated the Dilaudid shot did not help her. And requesting for additional pain medication so she is not in pain. Reminded patient that she has chronic back pain and we are not able to cure her chronic back pain in the emergency room.We are here to give her some relief but we cannot give additional Dilaudid nor increase her pain medication dosage. Informed the patient that she is already on oxycodone, Flexeril and Motrin and we cannot give her any additional narcotic since she is on a pain management contract and her symptoms are similar than before. Instructed to call her pain management tomorrow and get an earlier appointment for reevaluation of her pain medication. Departure - Departure Disposition: 01 Home, Self Care Clinical Impression: Back pain Qualifiers: Back pain location: low back pain Chronicity: chronic Back pain laterality: midline Sciatica presence: without sciatica Qualified Code(s): M54.5 - Low back pain; G89.29 - Other chronic pain Condition: Stable Instructions: ED Chronic Pain Management Comments: Call your pain management doctor tomorrow to reevaluate your pain medications. If you are worse such as numbness between your legs and incontinence of urine or stool return to the emergency room. Maintain safety while taking her pain medication.
[2018-09-27 21:14] LABS: HCG UR QUAL NEGATIVE
[2018-09-27] MEDS ORDERED: HYDROmorphone 1 MG/ML CARPUJECT IM STA (21:16)
--- NOTE | 2018-09-27 21:48 | XRAY Report ---
Reason: back pain Procedure Date: 09/27/2018 Accession Number: [id number] / [id number] Procedure: XR - Lumbar Spine 2 View CPT Code: FULL RESULT: EXAM: LUMBOSACRAL SPINE RADIOGRAPHY EXAM DATE: 09/27/2018 09:38 PM. CLINICAL HISTORY: Back pain. COMPARISONS: LUMBAR SPINE COMPLETE 02/08/2016 1:41 PM. TECHNIQUE: 2 views. FINDINGS: Alignment: Normal. No spondylolisthesis or scoliosis. Bones: Five zfs-deq-hjpfmfo lumbar vertebral bodies are present. No fractures or bone lesions. Disks: Normal. Disk heights are maintained. Facets: No degenerative changes. Sacroiliac Joints: Unremarkable. Soft Tissues: Normal. The visualized bowel gas pattern is normal. Neuro stimulator generator noted over the right mid abdomen. IMPRESSION: Normal lumbar spine radiography. [facility]
[2018-09-27 22:15] VITALS: BP 165/96
== END 2018-09-27 22:35 | disposition home or self-care (01) ==
LOC: ED 19:38
DX: G89.29 Other chronic pain (principal); M54.5 Low back pain; Z96.9 Presence of functional implant, unspecified
CPT/HCPCS: 72100; 81003; 81025; 96372; 99283; A9270; J1170; 81001; 87086

== ENCOUNTER 2018-10-18 08:11 | Emergency (ER) | payer OTHER ==
[2018-10-18 08:26] VITALS: BP 148/99
--- NOTE | 2018-10-18 09:04 | ED Physician Documentation ---
PD HPI SKIN - Stated complaint Stated Complaint: POSS ALLERGIC RX - Chief complaint Chief Complaint: Allergic Rx - History obtained from History obtained from: Patient - History of Present Illness Timing - onset: Today Timing - duration: Hours Timing - details: Gradual onset, Still present Location: [place] Quality / character: Itchy Improved by: Benadryl Associated symptoms: No: Fever, Myalgias, Joint pain, Headache, Facial swelling, Dyspnea, Abd pain, N/V/D, Urinary sx Contributing factors: Exposed to medication Similar symptoms before: Diagnosis (allergic reaction) Recently seen: Emergency Dept - Additional information Additional information: 33-year-old female who has had a recent pharyngitis has been treated with penicillin and her pharyngitis is improved now she is developed a rash. She has been on penicillin for about 5 days and the rash has developed on her extremities and is itchy. She is not having any swelling in her throat or wheezing. Review of Systems Constitutional: denies: Fever, Chills, Myalgias Eyes: denies: Decreased vision Ears: denies: Ear pain Nose: denies: Rhinorrhea / runny nose, Congestion Throat: denies: Sore throat Cardiac: denies: Chest pain / pressure Respiratory: reports: Cough. denies: Dyspnea GI: denies: Abdominal Pain, Nausea, Vomiting : denies: Dysuria Skin: reports: Rash Musculoskeletal: denies: Neck pain, Back pain, Extremity pain PD PAST MEDICAL HISTORY - Past Medical History Past Medical History: Yes Cardiovascular: None Respiratory: Asthma Neuro: Migraines Endocrine/Autoimmune: None GI: None ACCOUNTS COLLECTOR: None : None HEENT: None Psych: None Musculoskeletal: Chronic back pain Derm: None - Past Surgical History Past Surgical History: Yes /ACCOUNTS COLLECTOR: section - Present Medications Home Medications: Ambulatory Orders Medication Instructions Recorded Confirmed Orthotri Nesa 1 tab ORAL DAILY 07/31/15 07/31/15 Cholecalciferol (Vitamin D3) 08/19/18 [Vitamin D3] Magnesium Oxide [Magnesium] 08/19/18 Nortriptyline HCl 08/19/18 Zolpidem Tartrate [Ambien] 08/19/18 Metoprolol Tartrate 25 mg PO 08/23/18 Pantoprazole Sodium [Protonix] 20 mg PO 08/23/18 Cyclobenzaprine [Flexeril] 10 mg PO TID PRN #20 tablet 09/27/18 Ibuprofen [Motrin] 800 mg PO Q8H PRN #30 tablet 10/13/18 Penicillin V Potassium 500 mg PO Q6HR #40 tablet 10/13/18 predniSONE [Prednisone] 40 mg PO DAILY #10 tablet 10/18/18 - Allergies Allergies/Adverse Reactions: Allergies Allergy/AdvReac Type Severity Reaction Status Date / Time iodine Allergy Rash Verified 10/13/18 17:18 - Social History Does the pt smoke?: No Smoking Status: Never smoker Does the pt drink ETOH?: No Does the pt have substance abuse?: No - Immunizations Immunizations are current?: Yes - POLST Patient has POLST: No PD ED PE NORMAL - Vitals Vital signs reviewed: Yes (tachy) - General General: Alert and oriented X 3, No acute distress, Well developed/nourished - HEENT HEENT: Atraumatic, PERRL, EOMI, Ears normal, Moist mucous membranes, Pharynx benign, Dentition benign - Neck Neck: Supple, no meningeal sign, No bony TTP, Other (adenopathy is reduced) - Cardiac Cardiac: No murmur, Other (tachy to 100) - Respiratory Respiratory: No respiratory distress, Clear bilaterally - Abdomen Abdomen: Soft, Non tender - Back Back: No CVA TTP, No spinal TTP - Derm Derm: Normal color, Warm and dry, Other (There are multiple erythematous plaques to the forearms and legs ) - Extremities Extremities: No deformity, No edema - Neuro Neuro: Alert and oriented X 3, air twist operator 2-12 intact, No motor deficit, No sensory deficit, Normal speech Eye Opening: Spontaneous Motor: Obeys Commands Verbal: Oriented GCS Score: 15 - Psych Psych: Normal mood, Normal affect Results - Vitals Vitals: Vital Signs - 24 hr 10/18/18 08:16 Temperature 36.3 C L Heart Rate 112 H Respiratory 18 Rate Blood Pressure 148/99 H O2 Saturation 97 Oxygen O2 Source Room air PD MEDICAL DECISION MAKING - ED course Complexity details: reviewed old records, considered differential, d/w patient ED course: 33 y/o female with a reaction to penicillin appears to have improved her pharyngitis and appears to have had a reaction to the pcn. We have asked her to stop the pcn and we will provide a short course of prednisone. Departure - Departure Disposition: 01 Home, Self Care Clinical Impression: Allergic drug rash Condition: Stable Instructions: ED Drug React Allergic Follow-Up: Tara Vergara DO [Primary Care Provider] - Prescriptions: predniSONE [Prednisone] 40 mg PO DAILY #10 tablet
== END 2018-10-18 09:12 | disposition home or self-care (01) ==
LOC: ED 08:11
DX: R21 Rash and other nonspecific skin eruption (principal); L29.9 Pruritus, unspecified; T36.0X5A Adverse effect of penicillins, initial encounter
CPT/HCPCS: 99283

== ENCOUNTER 2018-10-22 12:14 | Outpatient (CLI) | payer OTHER ==
--- NOTE | 2018-10-23 10:58 | XRAY Report ---
Reason: LOW BACK PAIN, SPONDYLOSIS OF LUMBAR Procedure Date: 10/22/2018 Accession Number: [id number] / [id number] Procedure: XR - Lumbar Spine w/Flex/Ext CPT Code: FULL RESULT: EXAM: LUMBOSACRAL SPINE RADIOGRAPHY EXAM DATE: 10/22/2018 12:27 PM. CLINICAL HISTORY: Low back pain, spondylosis of lumbar. COMPARISONS: LUMBAR SPINE 2 VIEW 09/27/2018 9:20 PM. TECHNIQUE: AP, lateral neutral, flexion, and extension views. FINDINGS: Alignment: Normal. No spondylolisthesis or scoliosis. No abnormal motion with flexion or extension. Bones: Five ace-qch-luvwyki lumbar vertebral bodies are present. No fractures or bone lesions. Disks: Normal. Disk heights are maintained. Facets: No degenerative changes. Soft Tissues: Normal. The visualized bowel gas pattern is normal. IMPRESSION: Normal lumbar spine radiography. [facility]
== END 2018-10-22 12:15 | disposition home or self-care (01) ==
LOC: DI 12:14
PROVIDERS: ATTEND Registered Nurse
DX: M47.816 Spondylosis without myelopathy or radiculopathy, lumbar region (principal); M54.5 Low back pain
CPT/HCPCS: 72114

== ENCOUNTER 2018-11-13 08:00 | Outpatient (CLI) | payer OTHER | END 2018-11-13 23:59 | disposition home or self-care (01) | LOC: LAB.R 08:00 | PROVIDERS: ATTEND Family Medicine | DX: J02.9 Acute pharyngitis, unspecified (principal) | CPT/HCPCS: 87070 ==

== ENCOUNTER 2018-11-13 17:12 | Outpatient (CLI) | payer OTHER | END 2018-11-13 17:13 | disposition home or self-care (01) | LOC: LAB 17:12 | PROVIDERS: ATTEND Family Medicine | DX: J02.9 Acute pharyngitis, unspecified (principal) | CPT/HCPCS: 36415; 86308 ==

== ENCOUNTER 2018-12-09 06:56 | Day surgery (SDC) | payer OTHER ==
[2018-12-09] MEDS ORDERED: LACTATED RINGERS 1,000 ML IV ONE (07:31)
[2018-12-09] MEDS ORDERED: LIDO GARGLE 30 ML BOTTLE ONE (07:58)
[2018-12-09] MEDS ORDERED: fentaNYL 100 MCG/2 ML VIAL IVP ONE (08:07)
[2018-12-09] MEDS ORDERED: MIDAZOLAM 2 MG/2 ML VIAL IVP ONE (08:07)
[2018-12-09] MEDS ORDERED: BENZOCAINE/TETRACAINE/BUTAMBEN 20 GM TOP ONE (08:12)
[2018-12-09 09:10] VITALS: BP 119/67
== END 2018-12-09 06:57 | disposition home or self-care (01) ==
LOC: SDS 06:56
PROVIDERS: ATTEND Surgery
PROC: 0DB68ZX Excision of Stomach, Via Natural or Artificial Opening Endoscopic, Diagnostic (ICD-10-PCS; principal; 2018-12-09 08:15)
DX: R10.13 Epigastric pain (principal); I10 Essential (primary) hypertension; J45.998 Other asthma; G47.00 Insomnia, unspecified; Z79.52 Long term (current) use of systemic steroids; Z79.51 Long term (current) use of inhaled steroids
CPT/HCPCS: 43239; 87081; A9270; J7120

== ENCOUNTER 2018-12-28 12:51 | Outpatient (CLI) | payer OTHER ==
--- NOTE | 2018-12-29 16:26 | CT Report ---
Reason: RADICULOPATHY,LUMBOSACRAL REGION,CHRONIC PAIN SYND Procedure Date: 12/28/2018 Accession Number: [id number] / [id number] Procedure: CT - LUMBAR SPINE WO CPT Code: FULL RESULT: EXAM: CT LUMBAR SPINE WITHOUT CONTRAST EXAM DATE: 12/28/2018 01:05 PM. CLINICAL HISTORY: Chronic radiculopathy. L4-L5 laminectomy with stimulator implant. COMPARISONS: Prior plain film lumbar spine study 10/22/2018. TECHNIQUE: Thin-section axial images were acquired of the lumbar spine from T12 to S1 without contrast. Post-processing: Coronal and sagittal reformats. Other: None. In accordance with CT protocol optimization, one or more of the following dose reduction techniques were utilized for this exam: automated exposure control, adjustment of mA and/or KV based on patient size, or use of iterative reconstructive technique. Findings: Relevant images are indicated (image number, series number). Again seen are 5 psp-vow-nlranya lumbar vertebra. There is no fracture, listhesis, no suspicious bony lesion. There is no lumbar paraspinal mass or collection. Electronic device present within the subcutaneous tissues posterior right lower back. Partial visualization of a nonobstructive bowel pattern. Bilateral kidneys demonstrate no obstructive uropathy. Partly seen T10-T11, through T12-L1: Unremarkable without evidence for canal stenosis or neural foramina narrowing. L1-L2: Mild disk narrowing, small suspected posterior disk bulge, no significant canal stenosis. No apparent significant neural foraminal narrowing. L2-L3: Mild disk narrowing, small suspected posterior disk bulge with at least moderate degenerative canal stenosis, but no significant neuroforaminal narrowing. L3-L4: Small posterior disk bulge, mild canal stenosis with mild/moderate history of facet degenerative change. There is at least mild degenerative bilateral neural foramina narrowing. L4-L5: Minimal disk narrowing, small posterior broad-based disk bulge, mild posterior facet degenerative change, bilateral short pedicles, patient appears status post right side partial facetectomy (110, 4). There is moderate left, mild right neural foraminal narrowing. There is at least mild canal stenosis. L5-S1: At least mild intervertebral disk space narrowing, no canal stenosis. Bilateral short pedicles, mild posterior facet degenerative change with mild left, moderate right neural foraminal narrowing Remaining upper sacral canal negative. Impressions: 1. Again seen 5 asa-lax-yjmuhfs lumbar vertebra, patient appears status post right side L4-L5 partial facetectomy. There is a subcutaneous electronic device right lower back, wires extend within the subcutaneous tissues posterior right back, their terminus is not seen on this exam. Superimposed multilevel lumbar spondylosis, pertinent degenerative levels below. 2. L2-L3: Moderate suspected degenerative canal stenosis without significant neural foramen narrowing. 3. L3-L4: Mild degenerative canal stenosis with only mild degenerative suspected bilateral neural foramen narrowing. 4. L4-L5: At least mild canal stenosis, moderate degenerative left neural foramina narrowing may contribute a left L4 radiculopathy. Patient appears post right L4-L5 partial facetectomy. Correlate with surgical history. 5. L5-S1: No canal stenosis, moderate degenerative right neural foraminal narrowing could contribute a right L5 radiculopathy. 6. Milder or no significant degenerative changes of the remaining lower thoracic, lumbar spine levels as detailed. 7. If warranted, consider CT lumbar myelogram for further characterization/evaluation. [facility]
== END 2018-12-28 12:52 | disposition home or self-care (01) ==
LOC: DI 12:51
PROVIDERS: ATTEND Anesthesiology Pain Medicine
DX: M48.061 Spinal stenosis, lumbar region without neurogenic claudication (principal); M54.17 Radiculopathy, lumbosacral region; M96.1 Postlaminectomy syndrome, not elsewhere classified; G89.4 Chronic pain syndrome; Z79.891 Long term (current) use of opiate analgesic
CPT/HCPCS: 72131

== ENCOUNTER 2019-01-01 15:25 | Outpatient (CLI) | payer OTHER | END 2019-01-01 15:26 | disposition home or self-care (01) | LOC: LAB 15:25 | PROVIDERS: ATTEND Physician Assistant | DX: Z00.00 Encounter for general adult medical examination without abnormal findings (principal) | CPT/HCPCS: 36415; 86787 ==

== ENCOUNTER 2019-01-24 08:00 | Outpatient (CLI) | payer OTHER ==
[2019-01-24 18:49] LABS: BASOPHILS % (AUTO) 0.2 %; EOSINOPHILS # (AUTO) 0.1 10^3/uL (0.0-0.7); EOSINOPHILS % (AUTO) 1.3 %; HGB - HEMOGLOBIN 13.2 g/dL (12.0-16.0); LYMPHOCYTES # (AUTO) 2.1 10^3/uL (1.5-3.5); LYMPHOCYTES % (AUTO) 36.8 %; MEAN CORPUSCULAR HEMOGLOBIN 29.3 pg (27.0-31.0); MEAN CORPUSCULAR HGB CONC 33.6 g/dL (32.0-36.0); MEAN CORPUSCULAR VOLUME 87.1 fL (81.0-99.0); MEAN PLATELET VOLUME 7.2 fL (7.9-10.8); MONOCYTES # (AUTO) 0.5 10^3/uL (0.0-1.0); MONOCYTES % (AUTO) 8.3 %; NEUTROPHILS # (AUTO) 3.1 10^3/uL (1.5-6.6); NEUTROPHILS % (AUTO) 53.4 %; PLT - PLATELET COUNT 307 10^3/uL (130-450); RED BLOOD COUNT 4.52 10^6/uL (4.20-5.40); RED CELL DISTRIBUTION WIDTH 12.6 % (12.0-15.0); WHITE BLOOD COUNT 5.8 x10^3/uL (4.8-10.8)
[2019-01-24 19:27] LABS: CK- CREATINE KINASE 35 IU/L (22-269); URIC ACID 5.4 mg/dL (2.6-7.2)
[2019-01-24 19:31] LABS: RHEUMATOID FACTOR NEGATIVE (Negative)
[2019-01-24 19:43] LABS: CRP - C-REACTIVE PROTEIN < 1.0 mg/dL (0-1.0)
== END 2019-01-24 23:59 | disposition home or self-care (01) ==
LOC: LAB.N 08:00
DX: M79.10 Myalgia, unspecified site (principal); R53.83 Other fatigue
CPT/HCPCS: 36415; 82550; 84443; 84550; 85025; 85651; 86038; 86140; 86200; 86430

== ENCOUNTER 2019-01-24 11:09 | Outpatient (CLI) | payer OTHER ==
--- NOTE | 2019-01-24 17:00 | CT Report ---
Reason: OTHER CHRONIC PAIN,CERVICALGIA,PATESTHESIA OF HAND Procedure Date: 01/24/2019 Accession Number: [id number] / [id number] Procedure: CT - CERVICAL SPINE WO CPT Code: FULL RESULT: EXAM: CT CERVICAL SPINE WITHOUT CONTRAST DATE: 01/24/2019 11:20 AM. HISTORY: Other chronic pain, cervicalgia, paresthesia of hand. COMPARISONS: CT soft tissue neck 10/13/2018. TECHNIQUE: Thin-section axial images were acquired of the cervical spine without contrast. Post-processing: Coronal and sagittal reformats. Other: None. In accordance with CT protocol optimization, one or more of the following dose reduction techniques were utilized for this exam: automated exposure control, adjustment of mA and/or KV based on patient size, or use of iterative reconstructive technique. FINDINGS: Alignment: No scoliosis or spondylolisthesis. Minimal reversal of the normal cervical lordosis at C4-C5. Bones: No fracture or bone lesion. Interspace Levels/Facets: C1-C2: Unremarkable. C2-C3: Minimal disk osteophyte complex, asymmetric to the left. Mild left neural foramen stenosis. C3-C4: Minimal disk osteophyte complex, asymmetric to the left. Mild left neural foramen stenosis. C4-C5: Minimal disk osteophyte complex, asymmetric to the left. Minimal central canal stenosis. Mild bilateral neural foramen stenosis. C5-C6: Minimal disk osteophyte complex, asymmetric to the left. Mild left neural foramen stenosis. C6-C7: Unremarkable. C7-T1: Unremarkable. Musculature: No fatty atrophy. Other: The paravertebral and prevertebral soft tissues are unremarkable. The lung apices are clear. IMPRESSION: 1. Minimal degenerative disk changes. 2. Minimal central canal stenosis at C4-C5 due to disk osteophyte complex. 3. Mild neural foramen stenosis at C2-C3 on the left, C3-C4 on the left, C4-C5 bilaterally, and C5-C6 on the left. [facility]
== END 2019-01-24 11:10 | disposition home or self-care (01) ==
LOC: DI 11:09
PROVIDERS: ATTEND Registered Nurse
DX: M50.31 Other cervical disc degeneration, high cervical region (principal); M48.02 Spinal stenosis, cervical region; M79.10 Myalgia, unspecified site; R53.83 Other fatigue
CPT/HCPCS: 36415; 72125; 82550; 84443; 84550; 85025; 85651; 86038; 86140; 86200; 86430

== ENCOUNTER 2019-02-20 13:05 | Outpatient (CLI) | payer OTHER ==
--- NOTE | 2019-02-20 13:34 | CT Report ---
Reason: TONGUE DISORDER, PARESTHESIA FEET AND HANDS Procedure Date: 02/20/2019 Accession Number: [id number] / [id number] Procedure: CT - HEAD WO CPT Code: FULL RESULT: EXAM: CT HEAD EXAM DATE: 02/20/2019 01:25 PM. CLINICAL HISTORY: TONGUE DISORDER, PARESTHESIA FEET AND HANDS. COMPARISON: None. TECHNIQUE: Multiaxial CT images were obtained from the foramen magnum to the vertex. Reformats: Sagittal and coronal. IV contrast: None. In accordance with CT protocol optimization, one or more of the following dose reduction techniques were utilized for this exam: automated exposure control, adjustment of mA and/or KV based on patient size, or use of iterative reconstructive technique. FINDINGS: Parenchyma: No intraparenchymal hemorrhage. No evidence of mass, midline shift, or CT findings of infarction. Bo-white differentiation is distinct. Extraaxial Spaces: Normal for age. No subdural or epidural collections identified. Ventricles: Normal in size and position. Sinuses and Orbits: Imaged paranasal sinuses, orbits, and mastoids show no significant abnormality. Bones: No evidence of fracture or calvarial defect. Other: None. IMPRESSION: Normal head CT. [facility]
== END 2019-02-20 13:06 | disposition home or self-care (01) ==
LOC: DI 13:05
PROVIDERS: ATTEND Family Medicine
DX: K14.9 Disease of tongue, unspecified (principal); R20.2 Paresthesia of skin
CPT/HCPCS: 70450

== ENCOUNTER 2019-05-01 07:32 | Outpatient (CLI) | payer OTHER ==
[2019-05-01 08:07] LABS: BASOPHILS % (AUTO) 0.6 %; EOSINOPHILS # (AUTO) 0.1 10^3/uL (0.0-0.7); EOSINOPHILS % (AUTO) 2.5 %; HGB - HEMOGLOBIN 13.9 g/dL (12.0-16.0); LYMPHOCYTES # (AUTO) 1.9 10^3/uL (1.5-3.5); LYMPHOCYTES % (AUTO) 38.5 %; MEAN CORPUSCULAR HEMOGLOBIN 29.4 pg (27.0-31.0); MEAN PLATELET VOLUME 8.6 fL (7.9-10.8); MONOCYTES # (AUTO) 0.4 10^3/uL (0.0-1.0); NEUTROPHILS # (AUTO) 2.4 10^3/uL (1.5-6.6); NEUTROPHILS % (AUTO) 50.2 %; PLT - PLATELET COUNT 281 10^3/uL (130-450); RED BLOOD COUNT 4.73 10^6/uL (4.20-5.40); RED CELL DISTRIBUTION WIDTH 12.6 % (12.0-15.0); WHITE BLOOD COUNT 4.9 x10^3/uL (4.8-10.8)
[2019-05-01 12:48] LABS: RHEUMATOID FACTOR NEGATIVE (Negative)
[2019-05-02 13:08] LABS: HEPATITIS C ANTIBODY NON-REACTIVE (NON-REACTIVE)
== END 2019-05-01 07:33 | disposition home or self-care (01) ==
LOC: LAB 07:32
PROVIDERS: ATTEND Internal Medicine Rheumatology
DX: M25.50 Pain in unspecified joint (principal); R76.8 Other specified abnormal immunological findings in serum
CPT/HCPCS: 36415; 84443; 85025; 85651; 86140; 86200; 86430; 86803

== ENCOUNTER 2019-05-09 08:46 | Outpatient (CLI) | payer OTHER ==
--- NOTE | 2019-05-09 16:30 | Nuclear Medicine Report ---
Reason: PAIN IN JOINT,MULTIPLE SITES Procedure Date: 05/09/2019 Accession Number: [id number] / [id number] Procedure: NM - Bone Whole Body CPT Code: FULL RESULT: EXAM: BONE SCAN EXAM DATE: 05/09/2019 12:41 PM. CLINICAL HISTORY: PAIN IN JOINT,MULTIPLE SITES. COMPARISON: None. TECHNIQUE: Following the intravenous administration of 33.1 mCi of technetium 99m MDP and an appropriate delay, a whole-body scan was performed in anterior and posterior projections. FINDINGS: Exam Quality: Normal overall osseous radiotracer uptake. Physiological tracer uptake in bilateral collecting systems. Skull: No focal uptake. Thorax: No focal lesions in ribs or sternum. Pelvis: No focal lesions. Spine: No focal uptake in the cervical or thoracic or lumbar spine. Extremities: There is a focus of asymmetrically increased uptake in the right ankle. There is prominently increased uptake in both hip joints. IMPRESSION: 1. There is focally asymmetrically increased uptake in the right ankle. 2. Prominently increased uptake in both hip joints. 3. Otherwise negative bone scan. [facility]
== END 2019-05-09 08:47 | disposition home or self-care (01) ==
LOC: DI 08:46
PROVIDERS: ATTEND Internal Medicine Rheumatology
DX: M25.50 Pain in unspecified joint (principal); R93.6 Abnormal findings on diagnostic imaging of limbs
CPT/HCPCS: 78306

== ENCOUNTER 2019-07-14 13:38 | Outpatient (CLI) | payer OTHER ==
[2019-07-14] MEDS ORDERED: IOVERSOL 320 50 ML VIAL ONE (14:05)
[2019-07-14] MEDS ORDERED: IOVERSOL 320 100 ML VIAL IVP ONE ×2 (14:05→16:45)
[2019-07-14] MEDS ORDERED: IOVERSOL 320 50 ML VIAL PO ONE (16:45)
--- NOTE | 2019-07-15 16:44 | CT Report ---
Reason: LOSS OF WEIGHT, ABDOMINAL PAIN Procedure Date: 07/14/2019 Accession Number: [id number] / [id number] Procedure: CT - Abdomen/Pelvis W CPT Code: FULL RESULT: EXAM: CT ABDOMEN AND PELVIS EXAM DATE: 07/14/2019 03:24 PM. CLINICAL HISTORY: LOSS OF WEIGHT, ABDOMINAL PAIN. COMPARISONS: CHEST ANGIO 08/19/2018 2:55 PM. TECHNIQUE: Routine helical CT imaging was performed through the abdomen and pelvis. IV contrast: OPTI 320 100ML. Enteric contrast: No. Reconstructions: Coronal and sagittal. In accordance with CT protocol optimization, one or more of the following dose reduction techniques were utilized for this exam: automated exposure control, adjustment of mA and/or KV based on patient size, or use of iterative reconstructive technique. FINDINGS: Lung Bases: Unremarkable. Liver: Normal. No masses. Gallbladder/Bile Ducts: Unremarkable. Spleen: Normal. Pancreas: Normal. Adrenal Glands: Unchanged when compared to the previous study. A small nodular density is noted on the right adrenal gland, without change. It Measures 8 mm. Kidneys: Normal. No masses or hydronephrosis. Peritoneal Cavity/Bowel: Normal. No free fluid, free air or adenopathy. No masses or acute inflammatory process. The appendix is well visualized and normal. Pelvic Organs: Normal. The bladder and visualized pelvic organs are within normal limits. Vasculature: No aneurysms or other significant abnormality. Bones: No significant abnormality. Other: None. IMPRESSION: Redemonstration of a small nodular density on the right adrenal gland most likely represents an adrenal adenoma with a similar appearance to the previous study. [facility]
== END 2019-07-14 13:39 | disposition home or self-care (01) ==
LOC: DI 13:38
PROVIDERS: ATTEND Family Medicine
DX: E27.9 Disorder of adrenal gland, unspecified (principal)
CPT/HCPCS: 74177; Q9967

== ENCOUNTER 2019-08-07 08:33 | Outpatient (CLI) | payer OTHER ==
[2019-08-08 15:25] LABS: HIV AG/AB 4TH GEN NON-REACTIVE (NON-REACTIVE)
[2019-08-13 18:56] LABS: CALCULATED TOTAL (E+NE) URINE 54 (9-74); DOPAMINE URINE 183 (40-390); EPINEPHRINE URINE <1 (2-16); NOREPINEPHRINE URINE 54 (7-65)
== END 2019-08-07 08:34 | disposition home or self-care (01) ==
LOC: LAB 08:33
PROVIDERS: ATTEND Family Medicine
DX: D35.00 Benign neoplasm of unspecified adrenal gland (principal); R63.4 Abnormal weight loss
CPT/HCPCS: 36415; 81599; 82088; 82384; 82570; 83835; 84244; 87389

== ENCOUNTER 2019-08-10 08:00 | Outpatient (CLI) | payer OTHER ==
[2019-08-13 19:06] LABS: CREATININE, URINE 1.26 g/24 h (0.50-2.15)
== END 2019-08-10 23:59 | disposition home or self-care (01) ==
LOC: LAB.R 08:00
PROVIDERS: ATTEND Family Medicine
DX: D35.00 Benign neoplasm of unspecified adrenal gland (principal)
CPT/HCPCS: 82530; 82570

== ENCOUNTER 2019-10-22 15:35 | Outpatient (CLI) | payer OTHER ==
[2019-10-22 16:03] LABS: BASOPHILS % (AUTO) 0.5 %; EOSINOPHILS # (AUTO) 0.1 10^3/uL (0.0-0.7); EOSINOPHILS % (AUTO) 1.8 %; HGB - HEMOGLOBIN 13.1 g/dL (12.0-16.0); LYMPHOCYTES # (AUTO) 2.4 10^3/uL (1.5-3.5); LYMPHOCYTES % (AUTO) 37.1 %; MEAN CORPUSCULAR HGB CONC 32.5 g/dL (32.0-36.0); MEAN CORPUSCULAR VOLUME 92.4 fL (81.0-99.0); MEAN PLATELET VOLUME 8.4 fL (7.9-10.8); MONOCYTES # (AUTO) 0.5 10^3/uL (0.0-1.0); MONOCYTES % (AUTO) 7.2 %; NEUTROPHILS # (AUTO) 3.5 10^3/uL (1.5-6.6); NEUTROPHILS % (AUTO) 53.1 %; PLT - PLATELET COUNT 252 10^3/uL (130-450); RED BLOOD COUNT 4.36 10^6/uL (4.20-5.40); WHITE BLOOD COUNT 6.6 x10^3/uL (4.8-10.8)
[2019-10-22 16:05] LABS: PT - PROTHROMBIN TIME 11.5 secs (9.9-12.6)
== END 2019-10-22 15:36 | disposition home or self-care (01) ==
LOC: LAB 15:35
PROVIDERS: ATTEND Family Medicine
DX: M54.5 Low back pain (principal); G89.29 Other chronic pain
CPT/HCPCS: 36415; 85025; 85610

== ENCOUNTER 2019-12-23 07:00 | Outpatient (CLI) | payer OTHER | END 2019-12-23 23:59 | disposition home or self-care (01) | LOC: LAB.R 07:00 | PROVIDERS: ATTEND Nurse Practitioner Family | DX: J02.9 Acute pharyngitis, unspecified (principal) | CPT/HCPCS: 87070 ==

== ENCOUNTER 2020-01-01 14:43 | Emergency (ER) | payer OTHER ==
[2020-01-01] MEDS ORDERED: KETOROLAC 30 MG/ML VIAL IVP STA (18:09)
[2020-01-01] MEDS ORDERED: CAFFEINE/SODIUM BENZOATE 500 MG in SODIUM CHLORIDE 0.9% 1,000 ML IV STA (18:09)
[2020-01-01] MEDS ORDERED: HYDROmorphone 1 MG/ML SYRINGE IVP STA ×2 (18:09→20:17)
[2020-01-01] MEDS ORDERED: SODIUM CHLORIDE 0.9% 1,000 ML IV ONE (18:09)
--- NOTE | 2020-01-01 18:10 | ED Physician Documentation ---
PD HPI HEADACHE - Stated complaint Stated Complaint: BHATTI/FEELING FAINT - Chief complaint Chief Complaint: Neuro - History obtained from History obtained from: Patient (34-year-old woman with chronic migraines and back pain, spinal stimulator in place and as such had a CT myelogram done 2 days ago at [facility]. Subsequently yesterday developed a severe posterior headache different than her usual headaches which is much worse when upright. Not associated with nausea or vomiting.) Review of Systems Constitutional: denies: Fever, Chills Cardiac: denies: Chest pain / pressure, Palpitations Respiratory: denies: Dyspnea, Cough PD PAST MEDICAL HISTORY - Past Medical History Cardiovascular: Hypertension Respiratory: Asthma Neuro: Migraines Endocrine/Autoimmune: None GI:  SHAREPOINT CONSULTANT: None : Incontinence HEENT: None Psych: None Musculoskeletal: Chronic back pain Derm: None - Past Surgical History Past Surgical History: Yes Ortho: Spine surgery /SHAREPOINT CONSULTANT: section - Present Medications Home Medications: Ambulatory Orders Medication Instructions Recorded Confirmed Orthotri Nesa 1 tab ORAL DAILY 07/31/15 12/06/18 Cholecalciferol (Vitamin D3) 3,000 units PO DAILY 08/19/18 12/09/18 [Vitamin D3] Magnesium Oxide [Magnesium] 400 mg PO DAILY 08/19/18 12/09/18 Nortriptyline HCl 40 mg PO DAILY 08/19/18 12/09/18 Zolpidem Tartrate [Ambien] 10 mg PO DAILY 08/19/18 12/09/18 Metoprolol Tartrate 25 mg PO DAILY 08/23/18 12/09/18 Pantoprazole Sodium [Protonix] 20 mg PO DAILY 08/23/18 12/09/18 Ibuprofen [Motrin] 800 mg PO PRN PRN 12/06/18 12/09/18 oxyCODONE/ACET 5/325 [Percocet 5 1 tab PO TID 12/06/18 12/09/18 mg/325 mg] - Allergies Allergies/Adverse Reactions: Allergies Allergy/AdvReac Type Severity Reaction Status Date / Time iodine Allergy Intermediate Rash Verified 01/01/20 14:52 Penicillins Allergy Rash Verified 01/01/20 14:52 - Social History Does the pt smoke?: No Smoking Status: Never smoker Does the pt drink ETOH?: No Does the pt have substance abuse?: No - Immunizations Immunizations are current?: Yes - POLST Patient has POLST: No PD ED PE NORMAL - Vitals Vital signs reviewed: Yes - General General: Alert and oriented X 3, No acute distress - HEENT HEENT: PERRL, EOMI - Neck Neck: Supple, no meningeal sign, No bony TTP - Neuro Neuro: Alert and oriented X 3, front desk specialist 2-12 intact, No motor deficit, No sensory deficit, Normal speech Results - Vitals Vitals: Vital Signs - 24 hr 01/01/20 01/01/20 01/01/20 14:52 15:17 16:09 Temperature 36.5 C 36.7 C 35.8 C L Heart Rate 103 H 88 83 Respiratory 19 14 16 Rate Blood Pressure 150/90 H 143/86 H 136/95 H O2 Saturation 100 99 99 01/01/20 01/01/20 01/01/20 17:58 19:29 21:05 Temperature Heart Rate 84 86 83 Respiratory 18 18 16 Rate Blood Pressure 127/79 139/92 H 147/97 H O2 Saturation 100 100 98 Oxygen O2 Source Room air - Labs Labs: Laboratory Tests 01/01/20 01/01/20 01/01/20 19:11 19:11 19:11 WBC 17.3 H RBC 5.12 Hgb 15.4 Hct 45.2 MCV 88.3 MCH 30.1 MCHC 34.1 RDW 12.7 Plt Count 347 MPV 8.1 Neut # (Auto) 13.9 H Lymph # (Auto) 2.2 [place] # (Auto) 0.9 Eos # (Auto) 0.0 Baso # (Auto) 0.1 Absolute Nucleated RBC 0.00 Nucleated RBC % 0.0 PT 12.0 INR 1.1 Sodium 137 Potassium 3.6 Chloride 99 L Carbon Dioxide 24 Anion Gap 14.0 H BUN 17 Creatinine 0.8 Estimated GFR (MDRD) 83 L Glucose 91 Calcium 9.1 PD MEDICAL DECISION MAKING - ED course ED course: 34-year-old woman presents with a spinal headache. No evidence of meningitis. Feeling better after meds including Dilaudid Toradol and caffeine and IV fluids here. We discussed a blood patch but I do not think that is indicated given her response to medications. Note leukocytosis, but was taking steroids at home Departure - Departure Disposition: 01 Home, Self Care Clinical Impression: Spinal headache Condition: Good Record reviewed to determine appropriate education?: Yes Instructions: ED Headache Post Spinal Tap No Patc Comments: Turn as needed if you are usual home meds are insufficient. Forms: Activity restrictions Discharge Date/Time: 01/01/20 21:05
[2020-01-01 19:22] LABS: BASOPHILS # (AUTO) 0.1 10^3/uL (0.0-0.1); BASOPHILS % (AUTO) 0.4 %; EOSINOPHILS % (AUTO) 0.1 %; HGB - HEMOGLOBIN 15.4 g/dL (12.0-16.0); LYMPHOCYTES # (AUTO) 2.2 10^3/uL (1.5-3.5); LYMPHOCYTES % (AUTO) 12.9 %; MEAN CORPUSCULAR HEMOGLOBIN 30.1 pg (27.0-31.0); MEAN CORPUSCULAR HGB CONC 34.1 g/dL (32.0-36.0); MEAN CORPUSCULAR VOLUME 88.3 fL (81.0-99.0); MEAN PLATELET VOLUME 8.1 fL (7.9-10.8); MONOCYTES # (AUTO) 0.9 10^3/uL (0.0-1.0); MONOCYTES % (AUTO) 5.2 %; NEUTROPHILS # (AUTO) 13.9 10^3/uL (1.5-6.6); NEUTROPHILS % (AUTO) 80.4 %; PLT - PLATELET COUNT 347 10^3/uL (130-450); RED BLOOD COUNT 5.12 10^6/uL (4.20-5.40); RED CELL DISTRIBUTION WIDTH 12.7 % (12.0-15.0); WHITE BLOOD COUNT 17.3 x10^3/uL (4.8-10.8)
[2020-01-01 19:26] LABS: INR 1.1 (0.8-1.2)
[2020-01-01 19:30] LABS: CALCIUM 9.1 mg/dL (8.5-10.3); CREATININE 0.8 mg/dL (0.4-1.0)
[2020-01-01] MEDS ORDERED: CAFFEINE/SODIUM BENZOATE 500 MG/2 ML VIAL IV ONE (19:54)
[2020-01-01 21:06] VITALS: BP 147/97
== END 2020-01-01 21:05 | disposition home or self-care (01) ==
LOC: ED 14:43
DX: G97.1 Other reaction to spinal and lumbar puncture (principal); I10 Essential (primary) hypertension
CPT/HCPCS: 36415; 80048; 85025; 85610; 96361; 96365; 96375; 99283; 99284; J1170

== ENCOUNTER 2020-01-03 10:01 | Emergency (ER) | payer OTHER ==
--- NOTE | 2020-01-03 11:12 | ED Physician Documentation ---
PD HPI HEADACHE - Stated complaint Stated Complaint: HEAD PX - Chief complaint Chief Complaint: General - History obtained from History obtained from: Patient - History of Present Illness Timing - onset: How many days ago (4) Timing - onset during: Light activity Timing - duration: Days (4) Timing - details: Gradual onset (She had had a migraine headache last week which had improved and was on a Medrol pack subsequently by her primary care to prevent recurrences. She had a CT myelogram of the lumbar area at [facility] 4 days ago which was Sunday. She states she did not feel bad at that time but later in the day and the next day had gradual worsening of headache that was worse with standing or sitting up and felt different than her prior migraines. She denied any fever or chills. She continue with the headache into the following day which was and came to the ER here for evaluation. She was given IV fluids, antiemetics, pain medicine and caffeine and had reasonable improvement of her headache down to just a mild level. She went home and had a return of the same headache that evening and has continued yesterday into today. She denies still any fever or chills, no redness or sores swelling at the puncture site in the low back, no lower extremity paresis or paresthesias. The headache is still significant with sitting up.), Still present Worst headache ever?: No: Worst headache ever? Location: Global Quality: Aching, Stabbing Associated symptoms: Nausea. No: Fever, Stiff neck, Vomiting, Weakness, Numbness, Vision changes Improved by: Other (lying flat). No: Dark room Worsened by: Moving (mostly sitting and standing up). No: Light Contributing factors: Other (Lumbar CT myelogram 4 days ago with this headache developing after that). No: Recent illness Similar symptoms before: Has not had sx before Recently seen: Other Review of Systems Constitutional: denies: Fever, Chills, Myalgias, Weight Loss Nose: denies: Rhinorrhea / runny nose, Congestion Throat: denies: Sore throat Respiratory: denies: Cough GI: reports: Nausea. denies: Vomiting, Diarrhea : denies: Dysuria, Frequency Skin: denies: Rash, Lesions Musculoskeletal: reports: Back pain (chronic) Neurologic: reports: Headache. 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 : Incontinence HEENT: None Psych: None Musculoskeletal: Chronic back pain Derm: None - Past Surgical History Past Surgical History: Yes Ortho: Spine surgery /LEVEL VIAL SEALER: section - Present Medications Home Medications: Ambulatory Orders Medication Instructions Recorded Confirmed Orthotri Nesa 1 tab ORAL DAILY 07/31/15 12/06/18 Cholecalciferol (Vitamin D3) 3,000 units PO DAILY 08/19/18 12/09/18 [Vitamin D3] Magnesium Oxide [Magnesium] 400 mg PO DAILY 08/19/18 12/09/18 Nortriptyline HCl 40 mg PO DAILY 08/19/18 12/09/18 Zolpidem Tartrate [Ambien] 10 mg PO DAILY 08/19/18 12/09/18 Metoprolol Tartrate 25 mg PO DAILY 08/23/18 12/09/18 Pantoprazole Sodium [Protonix] 20 mg PO DAILY 08/23/18 12/09/18 Ibuprofen [Motrin] 800 mg PO PRN PRN 12/06/18 12/09/18 oxyCODONE/ACET 5/325 [Percocet 5 1 tab PO TID 12/06/18 12/09/18 mg/325 mg] - Allergies Allergies/Adverse Reactions: Allergies Allergy/AdvReac Type Severity Reaction Status Date / Time iodine Allergy Intermediate Rash Verified 01/03/20 10:17 Penicillins Allergy Rash Verified 01/03/20 10:17 - Social History Does the pt smoke?: No Smoking Status: Never smoker Does the pt drink ETOH?: No Does the pt have substance abuse?: No - Immunizations Immunizations are current?: Yes - POLST Patient has POLST: No PD ED PE NORMAL - General General: Alert and oriented X 3, Well developed/nourished - HEENT HEENT: Ears normal, Pharynx benign - Neck Neck: Supple, no meningeal sign, No adenopathy - Cardiac Cardiac: RRR, No murmur - Respiratory Respiratory: Clear bilaterally - Abdomen Abdomen: Soft, Non tender - Back Back: No CVA TTP, No spinal TTP, Other (no redness, rash, nor skin tenderness in lumbar area) - Derm Derm: Normal color, Warm and dry - Extremities Extremities: No edema, No calf tenderness / cord - Neuro Neuro: Alert and oriented X 3, No motor deficit, No sensory deficit, Normal speech Eye Opening: Spontaneous Motor: Obeys Commands Verbal: Oriented GCS Score: 15 Results - Vitals Vitals: Vital Signs - 24 hr 01/03/20 01/03/20 01/03/20 10:17 13:00 13:23 Temperature 36.9 C 36.6 C Heart Rate 102 H 78 98 Respiratory 18 16 16 Rate Blood Pressure 161/92 H 149/98 H 166/101 H O2 Saturation 99 100 98 01/03/20 14:43 Temperature Heart Rate 78 Respiratory 16 Rate Blood Pressure 140/88 H O2 Saturation 100 Oxygen O2 Source Room air - Labs Labs: Laboratory Tests 01/03/20 01/03/20 11:42 11:42 WBC 14.6 H RBC 4.97 Hgb 14.9 Hct 44.2 MCV 88.9 MCH 30.0 MCHC 33.7 RDW 12.6 Plt Count 339 MPV 7.9 Neut # (Auto) 11.6 H Lymph # (Auto) 2.1 [place] # (Auto) 0.7 Eos # (Auto) 0.1 Baso # (Auto) 0.1 Absolute Nucleated RBC 0.00 Nucleated RBC % 0.0 Sodium 137 Potassium 4.0 Chloride 101 Carbon Dioxide 25 Anion Gap 11.0 BUN 12 Creatinine 0.7 Estimated GFR (MDRD) 97 Glucose 82 Calcium 9.0 Total Bilirubin 0.4 AST 15 ALT 11 Alkaline Phosphatase 28 L C-Reactive Protein < 1.0 Total Protein 7.3 Albumin 3.9 Globulin 3.4 Albumin/Globulin Ratio 1.1 Lipase 38 PD MEDICAL DECISION MAKING - ED course Complexity details: reviewed old records, reviewed results, re-evaluated patient (Doing much better with IV fluids and medicines and subsequent to the blood patch by insight leader.), considered differential (No signs of infection such as fever redness tenderness or nuchal rigidity. It does sound like a postprocedural headache. Her white count was elevated at 17 but had been on steroids. Is down to 14 now but her CRP is negative. I do not get a sense of an infectious process.), d/w patient, d/w bilingual sales consultant ED course: Patient states she has Celebrex and Percocet at home and does not need further prescriptions. Departure - Departure Disposition: 01 Home, Self Care Clinical Impression: Spinal headache, Acute exacerbation of chronic low back pain Condition: Stable Record reviewed to determine appropriate education?: Yes Follow-Up: JANICE BAR, MSN, [employer] [Primary Care Provider] - Comments: Continue usual medications. Light activity today. Resume to more normal activity as tolerated starting tomorrow. Stay well-hydrated. Return if worsening headache again or if any head pressure nausea vomiting or you develop any fever.
[2020-01-03] MEDS ORDERED: SODIUM CHLORIDE 0.9% 1,000 ML IV ONE (11:28)
[2020-01-03] MEDS ORDERED: HYDROmorphone 1 MG/ML SYRINGE IVP STA ×2 (11:29→14:57)
[2020-01-03] MEDS ORDERED: KETOROLAC 15 MG/ML VIAL IVP STA (11:29)
[2020-01-03] MEDS ORDERED: CAFFEINE/SODIUM BENZOATE 500 MG in SODIUM CHLORIDE 0.9% 1,000 ML IV STA (11:29)
[2020-01-03] MEDS ORDERED: ONDANSETRON 4 MG/2 ML VIAL IVP STA (11:29)
[2020-01-03 11:51] LABS: BASOPHILS # (AUTO) 0.1 10^3/uL (0.0-0.1); BASOPHILS % (AUTO) 0.3 %; EOSINOPHILS # (AUTO) 0.1 10^3/uL (0.0-0.7); EOSINOPHILS % (AUTO) 0.7 %; HGB - HEMOGLOBIN 14.9 g/dL (12.0-16.0); LYMPHOCYTES # (AUTO) 2.1 10^3/uL (1.5-3.5); LYMPHOCYTES % (AUTO) 14.7 %; MEAN CORPUSCULAR HGB CONC 33.7 g/dL (32.0-36.0); MEAN CORPUSCULAR VOLUME 88.9 fL (81.0-99.0); MEAN PLATELET VOLUME 7.9 fL (7.9-10.8); MONOCYTES # (AUTO) 0.7 10^3/uL (0.0-1.0); MONOCYTES % (AUTO) 4.5 %; NEUTROPHILS # (AUTO) 11.6 10^3/uL (1.5-6.6); NEUTROPHILS % (AUTO) 79.1 %; PLT - PLATELET COUNT 339 10^3/uL (130-450); RED BLOOD COUNT 4.97 10^6/uL (4.20-5.40); RED CELL DISTRIBUTION WIDTH 12.6 % (12.0-15.0); WHITE BLOOD COUNT 14.6 x10^3/uL (4.8-10.8)
[2020-01-03 12:10] LABS: ALBUMIN 3.9 g/dL (3.2-5.5); ALBUMIN/GLOBULIN RATIO 1.1 (1.0-2.2); ALKALINE PHOSPHATASE 28 IU/L (42-121); ALT ALANINE AMINOTRANSFERASE 11 IU/L (10-60); AST ASPARTATE AMINOTRANSFERASE 15 IU/L (10-42); BILIRUBIN,TOTAL 0.4 mg/dL (0.2-1.0); BUN - BLOOD UREA NITROGEN 12 mg/dL (6-20); CARBON DIOXIDE - CO2 25 mmol/L (21-32); CHLORIDE 101 mmol/L (101-111); CREATININE 0.7 mg/dL (0.4-1.0); CRP - C-REACTIVE PROTEIN < 1.0 mg/dL (0-1.0); GFR - MDRD 97 (>89); GLUCOSE 82 mg/dL (70-100); LIPASE 38 U/L (22-51); SODIUM 137 mmol/L (135-145); TOTAL PROTEIN 7.3 g/dL (6.7-8.2)
[2020-01-03 14:43] VITALS: BP 140/88
[2020-01-03] MEDS ORDERED: DEXAMETHASONE 10 MG/ML VIAL IVP STA (15:03)
--- NOTE | 2020-01-03 18:17 | CONSULTATION NOTE ---
Consultation Report: Call to evaluate potential PDPH. 34yo F that recently under went CT myelogram 4 days prior at [facility]. L4-5 used for LP, pt states that procedure was slightly painful, otherwise uneventful. Pt has a hx of migraine headaches as well as chronic low and mid back pain. Related surgical history includes a laminectomy and spinal cord stimulator implant. She denies feeling this type of pain in the past. Pain is sharp and intense (9/10) located primarily at the base of the skull. Symptoms are worse when upright and in light. Pain subsides lying supine but is still a 3-4/10. Post procedure day 2 resulted in an ER visit for the same pain. That pain was made somewhat tolerable with fluids, caffeine, and other pain medications. Pain has returned to the level that originally brought pt to the ER. Several options were discussed with pt, including more fluids, rest, and what to expect without more invasive treatment, likely an 8-12 day recovery if a true PDPH exists. An epidural blood patch was also discussed at length with the patient and the decision was made to proceed with patch. Consent was obtained after a procedure explanation. A timeout was performed and the patient was assisted to the sitting position, lumbar region was prepped with betadine x3 after mask, gloves, and drape. 3cc of 1% Lidocaine was injected at the L4-5 level. Site without redness but pt states area is very tender. 17ga Tu needle to NANCY at 7cm with 2cc air. Slow return of clear and pink tinged fluid that stopped after 15-20seconds. 20cc blood drawn from pt R AC via LISA Veilz and made available for injection. Initial injection of 14cc before pt began to complain of pain at site and upper neck. 10 second pause and another injection of only 2cc before complaining of the same pain. Needle out at this point and pt returned to supine with pillows under both knees. Advised to lay supine for at least one hour. VSS. Returned to ER 90 mins post blood patch to evaluate pt. Pt lying supine in room with lights off. She states that her head pain is much better but that her lower back is bobbin winder tender and painful. ED MD to discharge pt home. Advised to avoid heavy lifting, straining, and extreme bending for the next few days as it was explained she is still healing despite the pain being better. Encouraged fluids and caffeine and explained she may need to return if the headache worsens.
== END 2020-01-03 15:25 | disposition home or self-care (01) ==
LOC: ED 10:01
DX: G97.1 Other reaction to spinal and lumbar puncture (principal); M54.5 Low back pain; G89.29 Other chronic pain; I10 Essential (primary) hypertension
CPT/HCPCS: 36415; 62273; 80053; 83690; 85025; 86140; 96365; 96366; 96375; 96376; 99284; 99285; J1170

== ENCOUNTER 2020-02-25 09:25 | Outpatient (CLI) | payer OTHER | END 2020-02-25 23:59 | disposition home or self-care (01) | LOC: LAB.WCP 09:25 | PROVIDERS: ATTEND Nurse Practitioner Family | DX: Z86.39 Personal history of other endocrine, nutritional and metabolic disease (principal) | CPT/HCPCS: 36415; 82306 ==

== ENCOUNTER 2020-10-08 08:13 | Outpatient (CLI) | payer OTHER ==
--- NOTE | 2020-10-08 11:05 | Ultrasound Report ---
PROCEDURE: Abdomen Limited INDICATIONS: RUQ ABDOMINAL PAIN TECHNIQUE: Real-time focused scanning was performed of the abdomen, with image documentation. COMPARISON: Comparison CT abdomen/pelvis 07/14/2019 FINDINGS: The liver measures 14.9 cm craniocaudad and shows heterogeneous coarse echotexture potenti ally a manifestation of cirrhosis. The liver is free of focal mass lesion. No biliary distention is p resent. The gallbladder appears normal except for sludge within the gallbladder lumen. The common duct is nor mal in caliber at 3 mm. No pancreatic abnormality is seen. The right kidney appears normal. IMPRESSION: Isolated finding of coarse hyperechoic heterogeneous echotexture of the liver likely representing a c ombination of both hepatic steatosis and cirrhosis. Follow-up CT scanning may be warranted depending on the clinical status. If focal liver lesion is not seen. Sludge is noted within the gallbladder lum en. Reviewed by: Gagandeep Crowell MD on 10/08/2020 11:04 AM PST Approved by: Gagandeep Crowell MD on 10/08/2020 11:04 AM PST Station ID: [id number]
== END 2020-10-08 08:14 | disposition home or self-care (01) ==
LOC: DI 08:13
PROVIDERS: ATTEND Nurse Practitioner Family
DX: R93.2 Abnormal findings on diagnostic imaging of liver and biliary tract (principal)

== ENCOUNTER 2020-10-19 08:00 | Outpatient (CLI) | payer OTHER ==
[2020-10-19 12:16] LABS: ALBUMIN 4.1 g/dL (3.2-5.5); ALKALINE PHOSPHATASE 26 IU/L (42-121); ALT ALANINE AMINOTRANSFERASE 13 IU/L (10-60); AST ASPARTATE AMINOTRANSFERASE 15 IU/L (10-42); BILIRUBIN,TOTAL 0.4 mg/dL (0.2-1.0); TOTAL PROTEIN 7.4 g/dL (6.7-8.2)
[2020-10-19 12:24] LABS: BILIRUBIN,DIRECT < 0.1 mg/dL (0.1-0.5)
== END 2020-10-19 23:59 | disposition home or self-care (01) ==
LOC: LAB.N 08:00
PROVIDERS: ATTEND Nurse Practitioner Family
DX: R10.11 Right upper quadrant pain (principal); K76.0 Fatty (change of) liver, not elsewhere classified
CPT/HCPCS: 36415; 80076

== ENCOUNTER 2020-11-08 10:47 | Outpatient (CLI) | payer OTHER ==
[2020-11-08 12:30] LABS: CREATININE 0.7 mg/dL (0.4-1.0)
[2020-11-08] MEDS ORDERED: IOVERSOL 320 100 ML VIAL IVP ONE ×2 (12:39→14:10)
[2020-11-08] MEDS ORDERED: SINCALIDE 5 MCG VIAL ONE (12:43)
[2020-11-08] MEDS ORDERED: SODIUM CHLORIDE 0.9% IV ONE (14:24)
[2020-11-08] MEDS ORDERED: SINCALIDE IV ONE (14:24)
--- NOTE | 2020-11-08 14:42 | Nuclear Medicine Report ---
PROCEDURE: Hepatobiliary HIDA w/ Rx INDICATIONS: ABN US OF LIVER, RUQ PAIN RADIOPHARMACEUTICAL: 4.9 mCi Tc-99m meprofenin i.v. , sincalide i.v. TECHNIQUE: Following intravenous administration of Tc-99m meprofenin, sequential anterior abdominal images were obtained through 59 minutes. To evaluate the contractile response of the gallbladder in response to Cholecystokinin (CCK), sincalide (0.02 ?g/kg) was administered by slow intravenous infus ion approximately 6 minutes after the administration of the radiopharmaceutical. Sequential imaging was continued for 30 minutes after the start of CCK infusion. Gallbladder ejection fraction was calc ulated. COMPARISON: None. FINDINGS: Biliary scan: There is normal tracer uptake and excretion by the liver. There is normal visualizati on of the intrahepatic ducts, common bile duct, and gallbladder. There is normal tracer transit into the duodenum. CCK stimulation: There is appropriate contractile response of the gallbladder to CCK infusion. The calculated gallbladder ejection fraction is 88%; normal values are above 35%. IMPRESSION: 1. Normal biliary imaging study. 2. Normal contractile response of gallbladder to CCK infusion.. Reviewed by: Sabino Platt MD on 11/08/2020 2:41 PM PST Approved by: Sabino Platt MD on 11/08/2020 2:41 PM PST Station ID: [id number]
--- NOTE | 2020-11-08 15:11 | CT Report ---
PROCEDURE: ABDOMEN W/WO INDICATIONS: ABN US OF LIVER CONTRAST: IV CONTRAST: Optiray 320 ml: 100 PO CONTRAST: *NO PO CONTRAST TECHNIQUE: 4 phase scanning was performed. After the administration of intravenous contrast, 5 mm thick section s acquired from the diaphragm to the symphysis. 5 mm coronal and sagittal reformats were acquired. For radiation dose reduction, the following was used: automated exposure control, adjustment of mA a nd/or kV according to patient size. COMPARISON: NM HIDA scan 11/08/2020, ultrasound abdomen 10/08/2020, CT abdomen/pelvis 07/15/2019. FINDINGS: Image quality: Excellent. Lung bases: Lung bases are clear. Heart size is normal. Liver: The liver is normal in size. Precontrast images demonstrate no signs of hepatic steatosis. Th e liver surface appears smooth. No abnormal mass or focus of arterial hyperenhancement is identified in the liver. Other solid organs: Gallbladder appears normal. Biliary system is non dilated. Pancreas is normal in morphology. Spleen is normal in size and enhancement. An 8 mm nodule in the right adrenal gland d oes not appear significantly changed when compared to the prior CT from 07/14/2019, too small to charac terize but most likely representing a benign adenoma. The left adrenal appears normal. Both kidneys d emonstrate normal size and enhancement, without hydronephrosis or nephrolithiasis. Nodes and vessels: No retroperitoneal or mesenteric adenopathy by size criteria. Aorta and inferior vena cava are normal in size. Bowel and peritoneum: Unenhanced bowel loops are normal in caliber. No free fluid or air. Bones: No suspicious bony lesions. No vertebral body compression fractures. Miscellaneous: No ventral hernias. A spinal stimulator device is seen with pulse generator in the r ight posterior subcutaneous tissues. IMPRESSION: 1. Normal appearance of the liver without signs of diffuse steatosis or cirrhosis. No focal liver ma ss is identified. 2. Right adrenal 8 mm nodule has not significantly changed in size when compared to the CT from 2018, most likely representing a benign adenoma. Reviewed by: Robert Fierro MD on 11/08/2020 3:10 PM PST Approved by: Robert Fierro MD on 11/08/2020 3:10 PM PST Station ID: [id number]
== END 2020-11-08 10:48 | disposition home or self-care (01) ==
LOC: DI 10:47
PROVIDERS: ATTEND Physician Assistant
DX: Z01.812 Encounter for preprocedural laboratory examination (principal); E27.9 Disorder of adrenal gland, unspecified; R10.11 Right upper quadrant pain
CPT/HCPCS: 74170; 78227; 82565; J7040; Q9967

== ENCOUNTER 2020-11-23 12:44 | Outpatient (CLI) | payer OTHER ==
[2020-11-23 13:50] VITALS: BP 121/80
--- NOTE | 2020-11-23 13:50 | SLEEP CARE CONSULTATION ---
Information from patient questionnaire entered by Mathieu Zaidi. I have reviewed and concur with the information entered by Mathieu Zaidi. This document represents the service I personally performed and the decisions made by me, Lisa Huitron ARNP. History of Present Illness Service Date and Time: 11/23/2020 1244 Reason for Visit: New patient Chief Complaint: reports: Unrefreshed sleep, Snoring, Excessive daytime sleepiness, Fatigue, Frequent awakenings at night, Other (twitching in sleep - RLS). denies: Observed pauses in breathing Date of Onset: Years Usual bedtime: 9-11 Time it takes to fall asleep: 30 min Snores at night: Yes Observed to quit breathing while asleep: No Sleeps alone due to snoring: No Number of times waking at night: 4-6 Reasons for waking at night: reports: Other (Not sure). denies: Choking, Snoring, Gasping for air Toss, Turn, or Twitch while sleeping: Yes Recalls having dreams: Yes Usually gets out of bed at: for work: 0545 Feels refreshed in the morning: No Morning headache: Yes (Not always; 5 out of 7 days, lasting from 1-2 hrs to all day) Sleepy or fatigued during the day: Yes Ever fallen asleep while driving: No Takes day naps: No Dreams during day naps: No Prior sleep studies: No Additional HPI information: I had the pleasure of seeing ANTONY ESPINOZA today regarding the possibility of her having a sleep disorder. Her current complaints are frequent night awakenings, unrefreshed sleep, fatigue and twitching in her sleep (RLS). She has always had trouble sleeping, she needs medication to be able to sleep and is waking up "less and less refreshed" every morning. She was recently also diagnosed with fibromyalgia. Her neurologist referred her to rule out a sleep disorder contributing to her symptoms of fatigue. She does snore, talks a lot in her sleep, wakes up panicked but still asleep (according to her ). Her also states that her whole body twitches a lot during sleep. He has not noted any pauses in breathing at night. Her grandmother does have sleep apnea but she refuses to use her CPAP machine. She walked in her sleep as a child and has acted out dreams in her sleep. - Parasomnia Symptoms Ever been unable to move upon waking from sleep: No Walks in sleep: Yes (did when a child) Talks in sleep: Yes Ever acted out dreams in sleep: Yes Ever felt weak in the knees when startled or emotional: No Bothered by creepy, crawly, restless sensations in legs: Yes (RLS, treated with Requip) Problems with memory or concentration: Yes (both lately) Subjective Initial [place] Sleepiness Scale score: 2 (ni 2020) Past Medical History Past Medical History: reports: Hypertension, Fibromyalgia, Anxiety, Asthma, Other (migraines, chronic low back pain, RLS, allergies). 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 Patient is and lives in [place]. Have you smoked in the past 12 months: No Alcohol use: No Caffeine use: Yes Caffeine amount and frequency: every other day, tea Family History Family history of sleep disordered breathing: Yes (maternal grandma ([place]), mom (snoring)) Family Hx Sleep Apnea: Mother: Snoring, Grandparent: Snoring, Sleep apnea - Untreated Allergies and Home Medications Drug allergies reviewed: Yes (iodine, penicillins) Home medication list reviewed: Yes Allergy and home medication list: Sertraline Cetrizine Topamax Omeprazole Plaquenil Celebrex Duloxetine Vitamin D Multivitamin Ambien Requip Percocet Metoprolol oral control Qvar Review of Systems Cardiovascular: reports: high blood pressure Gastrointestinal: reports: abdominal pain Neurological: reports: headaches Psychiatric: reports: anxiety Ear/Nose/Throat: reports: nasal congestion (just with allergies), wisdom teeth removed. denies: dry mouth/throat, tonsillectomy Musculoskeletal: reports: joint pain, back pain Immunologic: reports: allergies to food or environment Physical Exam Blood Pressure: 121/80 Cuff size: wrist Heart Rate: 93 O2 Saturation: 99 Height: 5 ft 4 in Weight: 187 lb Body Mass Index: 32.1 BMI Classification: Obese Neck circumference: 14.25 (inches) Nostrils: patent to airflow Turbinates: swollen (on right) Mouth and throat: narrow oropharynx Soft palate: long Hard palate: Torus palatinus (minor) Uvula visualization: 25% Mallampati Class III Tongue: enlarged in size with teeth kuo on lateral edges Tonsils: 2+ Chin and jaw: normal size and position Neck: normal w/o lymphadenopathy or thyromegaly Heart: regular rate and rhythm Lungs: clear bilaterally Impression and Plan 1. Suspected Obstructive Sleep Apnea-Hypopnea Syndrome, as suggested by a history of loud and irregular snoring, morning headache, unrefreshed sleep, cognitive impairment, and excessive daytime sleepiness. I reviewed with the patient that a narrow oropharynx and obesity are common predisposing factors for obstructive sleep apnea-hypopnea syndrome. I recommend proceeding to polysomnography to confirm the diagnosis and to assess severity. If the patient has significant sleep disordered breathing, a manual CPAP titration study will also be performed to find the optimal treatment pressure. I informed the patient of what the sleep studies involve and after some discussion, obtained agreement to proceed. The pathophysiology of obstructive sleep apnea-hypopnea syndrome was discussed with the patient and health risks of cardiovascular and cerebrovascular disease if not treated. [facility] brochure for obstructive sleep apnea-hypopnea syndrome given and reviewed. Risks of drowsy driving discussed in detail and patient advised to avoid long distance driving and to caul puller at the first sign of drowsiness. Patient agreed to plan. * Schedule polysomnography +- manual CPAP titration study and return in 1-2 weeks after the study to discuss result and initiate therapy. * Avoid long distance driving or driving when feeling sleepy. * Avoid sedative and muscle relaxant around bedtime. * Attempt to lose weight. * Review instructions provided by trained office staff on how to prepare for the sleep study. * Return for follow-up after sleep study completed. Counseling Topics: Weight loss health impact Visit Type: In Office Time Spent with Patient (minutes): 30 Provider Statement: I spent 100% of the Face to Face Visit with the patient with greater than 50% spent counseling the patient and coordination of care.
== END 2020-11-23 12:45 | disposition home or self-care (01) ==
LOC: SC 12:44
PROVIDERS: ATTEND Nurse Practitioner Family
DX: R06.83 Snoring (principal); R51.9 Headache, unspecified; G47.8 Other sleep disorders; R41.89 Other symptoms and signs involving cognitive functions and awareness; G47.10 Hypersomnia, unspecified; E66.9 Obesity, unspecified; Z68.32 Body mass index [BMI] 32.0-32.9, adult
CPT/HCPCS: 99203; 99212

== ENCOUNTER 2020-12-13 14:01 | Outpatient (CLI) | payer OTHER | END 2020-12-13 14:02 | disposition home or self-care (01) | LOC: SC 14:01 | PROVIDERS: ATTEND Nurse Practitioner Family | DX: G47.10 Hypersomnia, unspecified (principal); R06.83 Snoring; R53.83 Other fatigue; R51.9 Headache, unspecified; G47.8 Other sleep disorders; E66.3 Overweight; Z68.32 Body mass index [BMI] 32.0-32.9, adult | CPT/HCPCS: 95806 ==

== ENCOUNTER 2020-12-24 11:47 | Outpatient (CLI) | payer OTHER ==
--- NOTE | 2020-12-24 12:18 | SLEEP CARE CONSULTATION ---
Information from patient questionnaire entered by Shanice Saucedo. I have reviewed and concur with the information entered by Shanice Saucedo. This document represents the service I personally performed and the decisions made by , Lisa Huitron ARNP. History of Present Illness Service Date and Time: 12/24/2020 1147 Initial [place] Sleepiness Scale score: 2 (in 2020) Current [place] Sleepiness Scale score: 1 Additional HPI information: ANTONY ESPINOZA returns for follow up and results of the recently performed home sleep study. The patient was informed of the following findings: no significant sleep disordered breathing with an average AHI of 1.2 and javed oxygen saturation of 90%. I explained the pathophysiology behind obstructive sleep apnea. Patient does not have sleep apnea and was advised how weight gain could increase the risk of developing sleep apnea in the future. Patient has light snoring. Snoring can be reduced by weight loss. Weight loss is best achieved with diet consult. Patient instructed to contact PCP for referral. Snoring can also be treated with an oral appliance from a dentist. Advised to check insurance coverage. In addition, an ENT evaluation can be do to see if other treatment is indicated. Patient does not drink alcohol. Patient was cautioned about risks of drowsy driving until sleepiness symptoms resolve. Sleep Study - Results Type of Sleep Study: Home sleep study Prior sleep studies: No Polysomnography/Home Sleep Study results: Physician Impression: The quality of the study is good. The length of the study is adequate (> 240 minutes). Please also see the tabulated and graphic data. 1. No significant sleep-disordered breathing, with an AHI of 1.2/hr and javed SaO2 of 90%. During the study, the patient had 8 apneas (7 obstructive, 1 central, 0 mixed) and 1 hypopneas. The longest episode lasted 20.5 seconds. The rare respiratory events occurred more frequently during supine sleep (supine AHI was 2.5 and non-supine, 0.73). Allergies and Home Medications Drug allergies reviewed: Yes (iodine, penicillin) Home medication list reviewed: Yes (Methotrexate) Review of Systems Review of systems same as previous: Yes (no changes) Physical Exam Heart Rate: 89 O2 Saturation: 97 Height: 5 ft 4 in Weight: 189 lb Body Mass Index: 32.4 BMI Classification: Obese Impression and Plan 1. Fatigue, unspecified. Patient has no significant sleep disordered breathing noted on her HST. She was advised to continue to follow up with her neurologist for further work up of her fatigue. Patient voiced concerns about waking up at night and not being able to get to sleep. Insomnia is generally caused by an irregular sleep schedule, spending too much time in bed, napping, caffiene, electronics, lack of a relaxing bedtime ritual and clock watching. Other factors can include anxiety/depression. I counseled the patient on the importance of a regular sleep schedule, starting with the wake time. I explained the homestatic sleep drive and how maintaining a regular wake time will allow the patient to be tired enough to sleep 15-16 hours later. By waking at the same time, the patient will also feel more alert. This can also be assisted by exposure to bright light for a minimum of 15 minutes a day upon waking. [facility] How to Sleep Better pamphlet given and reviewed. 2. Obesity, unspecified. Currently patients BMI is 32.1. Obesity increases the risk of apnea and overall health risks especially cardiovascular and diabetes. Thus patient is advised to lose weight. Weight loss can be done with reducing portion size, reducing refined foods and balancing content with vegetables, fruit and whole grain foods. Patient encouraged to follow up with PCP for adult basic education instructor consult as needed to assist with weight loss. * Attempt to lose weight * Avoid alcohol consumption near bedtime * The patient is cautioned about driving until sleepiness is completely resolved. * Return as needed. Counseling Topics: Weight loss health impact Visit Type: In Office Time Spent with Patient (minutes): 17 Provider Statement: I spent 100% of the Face to Face Visit with the patient with greater than 50% spent counseling the patient and coordination of care.
== END 2020-12-24 11:48 | disposition home or self-care (01) ==
LOC: SC 11:47
PROVIDERS: ATTEND Nurse Practitioner Family
DX: R53.83 Other fatigue (principal); E66.9 Obesity, unspecified; Z68.32 Body mass index [BMI] 32.0-32.9, adult
CPT/HCPCS: 99212

== ENCOUNTER 2021-03-16 08:00 | Outpatient (CLI) | payer OTHER ==
[2021-03-16 17:53] LABS: BASOPHILS % (AUTO) 0.3 %; EOSINOPHILS # (AUTO) 0.1 10^3/uL (0.0-0.7); HCT - HEMATOCRIT 41.9 % (37.0-47.0); HGB - HEMOGLOBIN 13.3 g/dL (12.0-16.0); LYMPHOCYTES % (AUTO) 31.2 %; MEAN CORPUSCULAR HGB CONC 31.7 g/dL (32.0-36.0); MEAN CORPUSCULAR VOLUME 97.7 fL (81.0-99.0); MEAN PLATELET VOLUME 8.8 fL (7.9-10.8); MONOCYTES # (AUTO) 0.5 10^3/uL (0.0-1.0); MONOCYTES % (AUTO) 7.5 %; NEUTROPHILS # (AUTO) 3.8 10^3/uL (1.5-6.6); NEUTROPHILS % (AUTO) 58.5 %; PLT - PLATELET COUNT 323 10^3/uL (130-450); RED BLOOD COUNT 4.29 10^6/uL (4.20-5.40); RED CELL DISTRIBUTION WIDTH 13.2 % (12.0-15.0); WHITE BLOOD COUNT 6.4 x10^3/uL (4.8-10.8)
[2021-03-16 18:06] LABS: ALBUMIN 3.9 g/dL (3.2-5.5); ALBUMIN/GLOBULIN RATIO 1.2 (1.0-2.2); BILIRUBIN,TOTAL 0.3 mg/dL (0.2-1.0); CALCIUM 9.4 mg/dL (8.5-10.3); CREATININE 0.9 mg/dL (0.4-1.0); POTASSIUM 4.2 mmol/L (3.5-5.0); TOTAL PROTEIN 7.2 g/dL (6.7-8.2)
== END 2021-03-16 23:59 | disposition home or self-care (01) ==
LOC: LAB.N 08:00
PROVIDERS: ATTEND Family Medicine
DX: R10.11 Right upper quadrant pain (principal); R10.9 Unspecified abdominal pain
CPT/HCPCS: 36415; 80053; 85025; 87086

== ENCOUNTER 2021-04-25 15:18 | Emergency (ER) | payer OTHER ==
--- NOTE | 2021-04-25 16:12 | ED Physician Documentation ---
PD HPI SKIN - Stated complaint Stated Complaint: ALLERGIC REACTION - Chief complaint Chief Complaint: Allergic Rx - History obtained from History obtained from: Patient - History of Present Illness Timing - onset: How many days ago (3) Timing - duration: Days (3) Timing - details: Gradual onset (onset of redness and itching the day after injection, and this has expanded slowly at site. No streaking, no general itch/hives.), Still present Location: RLE (anterior right thigh) Quality / character: Itchy, Painful, Discolored (deeper red/purple), Swelling. No: Vesicular, Draining Improved by: Benadryl Contributing factors: Exposed to medication (got injection in thigh and has increased itching and redness at that site. 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 : Incontinence HEENT: None Psych: None Musculoskeletal: Rheumatoid arthritis, Chronic back pain Derm: None - Past Surgical History Past Surgical History: Yes Ortho: Spine surgery /OIL WELL SHOOTER: section - Present Medications Home Medications: Ambulatory Orders Medication Instructions Recorded Confirmed Orthotri Nesa 1 tab ORAL DAILY 07/31/15 12/06/18 Cholecalciferol (Vitamin D3) 3,000 units PO DAILY 08/19/18 12/09/18 [Vitamin D3] Magnesium Oxide [Magnesium] 400 mg PO DAILY 08/19/18 12/09/18 Nortriptyline HCl 40 mg PO DAILY 08/19/18 12/09/18 Zolpidem Tartrate [Ambien] 10 mg PO DAILY 08/19/18 12/09/18 Metoprolol Tartrate 25 mg PO DAILY 08/23/18 12/09/18 Pantoprazole Sodium [Protonix] 20 mg PO DAILY 08/23/18 12/09/18 Ibuprofen [Motrin] 800 mg PO PRN PRN 12/06/18 12/09/18 oxyCODONE/ACET 5/325 [Percocet 5 1 tab PO TID 12/06/18 12/09/18 mg/325 mg] Cetirizine [ZyrTEC] 10 mg PO BID #15 tablet 04/25/21 dexAMETHasone [Decadron] 4 mg PO DAILY #5 tablet 04/25/21 - Allergies Allergies/Adverse Reactions: Allergies Allergy/AdvReac Type Severity Reaction Status Date / Time iodine Allergy Intermediate Rash Verified 04/25/21 15:22 Penicillins Allergy Rash Verified 04/25/21 15:22 - Social History Does the pt smoke?: No Smoking Status: Never smoker Does the pt drink ETOH?: No Does the pt have substance abuse?: No - Immunizations Immunizations are current?: Yes - POLST Patient has POLST: No PD ED PE NORMAL - Vitals Vital signs reviewed: Yes - General General: Alert and oriented X 3, No acute distress, Well developed/nourished - Cardiac Cardiac: RRR, No murmur - Respiratory Respiratory: Clear bilaterally - Derm Derm: Normal color, Warm and dry, Other (right anterior thigh with oval area of purple redness surrounding by faint redness. Area is about 3x6 cm. Some induration. No fluctuance. No red streaking around it. No inguinal adenopathy. ) Results - Vitals Vitals: Vital Signs - 24 hr 04/25/21 04/25/21 15:22 16:56 Temperature 36.5 C 37.0 C Heart Rate 100 89 Respiratory 16 16 Rate Blood Pressure 139/77 H 116/81 H O2 Saturation 98 99 Oxygen O2 Source Room air PD MEDICAL DECISION MAKING - ED course Complexity details: considered differential (looks local reaction and does not appear infectious. ), d/w patient Departure - Departure Disposition: 01 Home, Self Care Clinical Impression: Localized adverse drug reaction Condition: Stable Record reviewed to determine appropriate education?: Yes Instructions: ED Allergic Reaction Local Other Prescriptions: dexAMETHasone [Decadron] 4 mg PO DAILY #5 tablet Cetirizine [ZyrTEC] 10 mg PO BID #15 tablet Comments: This looks to be a localized allergic reaction and does not appear like an infection at this time. We can treated with steroids and increased antihistamines over the next several days. I would anticipate improving into this evening and by tomorrow. Recheck if increasing redness and in particular any asymmetrically expanding or red streaks or if you develop any lymph nodes in the groin area that would be more suggestive of infection. Discharge Date/Time: 04/25/21 16:58
[2021-04-25] MEDS ORDERED: FAMOTIDINE 20 MG TABLET PO STA (16:23)
[2021-04-25] MEDS ORDERED: DEXAMETHASONE 10 MG/ML VIAL PO STA (16:23)
[2021-04-25] MEDS ORDERED: CHERRY SYRUP 10 ML UDC PO ONE (16:23)
[2021-04-25] MEDS ORDERED: CETIRIZINE 10 MG TABLET PO STA (16:23)
[2021-04-25 16:57] VITALS: BP 116/81
== END 2021-04-25 16:58 | disposition home or self-care (01) ==
LOC: ED 15:18
DX: R22.41 Localized swelling, mass and lump, right lower limb (principal); T50.905A Adverse effect of unspecified drugs, medicaments and biological substances, initial encounter; I10 Essential (primary) hypertension
CPT/HCPCS: 99282; 99283; A9270

== ENCOUNTER 2021-06-29 12:48 | Emergency (ER) | payer OTHER ==
[2021-06-29] MEDS ORDERED: SODIUM CHLORIDE 0.9% 1,000 ML IV STA (13:20)
[2021-06-29] MEDS ORDERED: ONDANSETRON 4 MG/2 ML VIAL IVP STA (13:21)
[2021-06-29 13:36] LABS: BASOPHILS % (AUTO) 0.2 %; EOSINOPHILS # (AUTO) 0.1 10^3/uL (0.0-0.7); EOSINOPHILS % (AUTO) 1.7 %; HCT - HEMATOCRIT 42.3 % (37.0-47.0); HGB - HEMOGLOBIN 13.9 g/dL (12.0-16.0); LYMPHOCYTES % (AUTO) 30.4 %; MEAN CORPUSCULAR HEMOGLOBIN 30.8 pg (27.0-31.0); MEAN CORPUSCULAR HGB CONC 32.9 g/dL (32.0-36.0); MEAN CORPUSCULAR VOLUME 93.6 fL (81.0-99.0); MEAN PLATELET VOLUME 9.6 fL (7.9-10.8); MONOCYTES # (AUTO) 0.5 10^3/uL (0.0-1.0); MONOCYTES % (AUTO) 7.1 %; NEUTROPHILS # (AUTO) 3.9 10^3/uL (1.5-6.6); NEUTROPHILS % (AUTO) 60.1 %; PLT - PLATELET COUNT 109 10^3/uL (130-450); RED BLOOD COUNT 4.52 10^6/uL (4.20-5.40); RED CELL DISTRIBUTION WIDTH 13.4 % (12.0-15.0); WHITE BLOOD COUNT 6.5 x10^3/uL (4.8-10.8)
--- NOTE | 2021-06-29 13:46 | ED Physician Documentation ---
History of Present Illness - Stated complaint Stated Complaint: C+ - Chief complaint Chief Complaint: Abd Pain - Additonal information Additional information: 36-year-old female presents emergency department for evaluation of 3 to 4 days nausea vomiting and diarrhea. She is concerned she may be dehydrated as she has been unable to keep anything down. Denies any hematic emesis melena or hematochezia. No fevers. No cough. Patient is immune suppressed with a history of RA. She does take Plaquenil, methotrexate as well as Remicade. Patient was treated at [facility] yesterday with 1 L of IV fluids. On the of this month she was tested for COVID-19 and had a negative bio fire panel. 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 She is fully vaccinated. So is her . She denies any recent travel. Denies similar illness and her . Review of Systems Constitutional: reports: Myalgias Eyes: reports: Reviewed and negative Ears: reports: Reviewed and negative Nose: reports: Reviewed and negative Throat: reports: Reviewed and negative Cardiac: denies: Chest pain / pressure, Palpitations Respiratory: denies: Dyspnea, Cough GI: reports: Nausea, Vomiting, Diarrhea. 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: section - Present Medications Home Medications: Ambulatory Orders Medication Instructions Recorded Confirmed Orthotri Nesa 1 tab ORAL DAILY 07/31/15 12/06/18 Cholecalciferol (Vitamin D3) 3,000 units PO DAILY 08/19/18 12/09/18 [Vitamin D3] Magnesium Oxide [Magnesium] 400 mg PO DAILY 08/19/18 12/09/18 Nortriptyline HCl 40 mg PO DAILY 08/19/18 12/09/18 Zolpidem Tartrate [Ambien] 10 mg PO DAILY 08/19/18 12/09/18 Metoprolol Tartrate 25 mg PO DAILY 08/23/18 12/09/18 Pantoprazole Sodium [Protonix] 20 mg PO DAILY 08/23/18 12/09/18 Ibuprofen [Motrin] 800 mg PO PRN PRN 12/06/18 12/09/18 oxyCODONE/ACET 5/325 [Percocet 5 1 tab PO TID 12/06/18 12/09/18 mg/325 mg] Cetirizine [ZyrTEC] 10 mg PO BID #15 tablet 04/25/21 dexAMETHasone [Decadron] 4 mg PO DAILY #5 tablet 04/25/21 Ondansetron Odt [Zofran] 4 mg TL Q6H PRN #10 tablet 06/29/21 - Allergies Allergies/Adverse Reactions: Allergies Allergy/AdvReac Type Severity Reaction Status Date / Time iodine Allergy Intermediate Rash Verified 06/29/21 13:06 Penicillins Allergy Rash Verified 06/29/21 13:06 - Social History Does the pt smoke?: No Smoking Status: Never smoker Does the pt drink ETOH?: No Does the pt have substance abuse?: No - Immunizations Immunizations are current?: Yes - POLST Patient has POLST: No PD ED PE NORMAL - General General: Alert and oriented X 3, No acute distress - Neck Neck: Supple, no meningeal sign - Cardiac Cardiac: RRR, No murmur - Respiratory Respiratory: Clear bilaterally - Abdomen Abdomen: Normal bowel sounds, Soft, Non tender, Non distended - Back Back: No CVA TTP, No spinal TTP - Derm Derm: Normal color, Warm and dry, No rash Results - Vitals Vitals: Vital Signs - 24 hr 06/29/21 06/29/21 06/29/21 13:01 13:44 15:30 Temperature 36.7 C Heart Rate 92 86 84 Respiratory 14 14 16 Rate Blood Pressure 145/95 H 137/85 H 121/77 O2 Saturation 99 98 99 Oxygen O2 Source Room air - Labs Labs: Laboratory Tests 06/29/21 06/29/21 06/29/21 13:32 13:32 13:38 WBC 6.5 RBC 4.52 Hgb 13.9 Hct 42.3 MCV 93.6 MCH 30.8 MCHC 32.9 RDW 13.4 Plt Count 109 L MPV 9.6 Neut # (Auto) 3.9 Lymph # (Auto) 2.0 Rooks # (Auto) 0.5 Eos # (Auto) 0.1 Baso # (Auto) 0.0 Absolute Nucleated RBC 0.00 Nucleated RBC % 0.0 Sodium 139 Potassium 4.1 Chloride 111 Carbon Dioxide 21 Anion Gap 7.0 BUN 12 Creatinine 0.8 Estimated GFR (MDRD) 82 L Glucose 86 Calcium 9.1 Total Bilirubin 0.7 AST 23 ALT 18 Alkaline Phosphatase 30 L Total Protein 7.1 Albumin 4.0 Globulin 3.1 Albumin/Globulin Ratio 1.3 Lipase 30 Urine Color LT RED Urine Clarity HAZY Urine pH 7.0 Ur Specific [place] 1.010 Urine Protein NEGATIVE Urine Glucose (UA) NEGATIVE Urine Ketones NEGATIVE Urine Occult Blood LARGE H Urine Nitrite NEGATIVE Urine Bilirubin NEGATIVE Urine Urobilinogen 0.2 (NORMAL) Ur Leukocyte Esterase NEGATIVE Urine RBC TNTC H Urine WBC 0-3 Ur Squamous Epith Cells RARE Squamous Urine Bacteria Rare Ur Microscopic Review INDICATED Urine Culture Comments NOT INDICATED Nasal Adenovirus (PCR) Nasal B. parapertussis DNA (PCR) Nasal Coronavir 229E PCR Nasal Coronavir HKU1 PCR Nasal Coronavir NL63 PCR Nasal Coronavir OC43 PCR Nasal Enterovir/Rhinovir PCR Nasal Influenza B PCR Nasal Influenza A PCR Nasal Parainfluen 1 PCR Nasal Parainfluen 2 PCR Nasal Parainfluen 3 PCR Nasal Parainfluen 4 PCR Nasal RSV (PCR) Nasal B.pertussis DNA PCR Nasal C.pneumoniae (PCR) Ryan Human Metapneumo PCR Nasal M.pneumoniae (PCR) Nasal SARS-CoV-2 (PCR) 06/29/21 13:43 WBC RBC Hgb Hct MCV MCH MCHC RDW Plt Count MPV Neut # (Auto) Lymph # (Auto) Rooks # (Auto) Eos # (Auto) Baso # (Auto) Absolute Nucleated RBC Nucleated RBC % Sodium Potassium Chloride Carbon Dioxide Anion Gap BUN Creatinine Estimated GFR (MDRD) Glucose Calcium Total Bilirubin AST ALT Alkaline Phosphatase Total Protein Albumin Globulin Albumin/Globulin Ratio Lipase Urine Color Urine Clarity Urine pH Ur Specific [place] Urine Protein Urine Glucose (UA) Urine Ketones Urine Occult Blood Urine Nitrite Urine Bilirubin Urine Urobilinogen Ur Leukocyte Esterase Urine RBC Urine WBC Ur Squamous Epith Cells Urine Bacteria Ur Microscopic Review Urine Culture Comments Nasal Adenovirus (PCR) NOT DETECTED Nasal B. parapertussis DNA (PCR) NOT DETECTED Nasal Coronavir 229E PCR NOT DETECTED Nasal Coronavir HKU1 PCR NOT DETECTED Nasal Coronavir NL63 PCR NOT DETECTED Nasal Coronavir OC43 PCR NOT DETECTED Nasal Enterovir/Rhinovir PCR NOT DETECTED Nasal Influenza B PCR NOT DETECTED Nasal Influenza A PCR NOT DETECTED Nasal Parainfluen 1 PCR NOT DETECTED Nasal Parainfluen 2 PCR NOT DETECTED Nasal Parainfluen 3 PCR NOT DETECTED Nasal Parainfluen 4 PCR NOT DETECTED Nasal RSV (PCR) NOT DETECTED Nasal B.pertussis DNA PCR NOT DETECTED Nasal C.pneumoniae (PCR) NOT DETECTED Ryan Human Metapneumo PCR NOT DETECTED Nasal M.pneumoniae (PCR) NOT DETECTED Nasal SARS-CoV-2 (PCR) NOT DETECTED - Rads (name of study) CT abd Radiology: Final report received (Diverticulosis. Left ovarian cyst.) PD MEDICAL DECISION MAKING - ED course Complexity details: reviewed results, considered differential, d/w patient ED course: Well-appearing 36-year-old female presents emergency department with 3 to 4 days of nausea vomiting and diarrhea. History of immune suppression secondary to RA. On Plaquenil Remicade and methotrexate. She did receive a liter of IV fluids at walk-in clinic yesterday. She is concerned however given the immunosuppression that she could be Covid 19+ despite a negative test 5 days ago. Screening respiratory PCR today is unremarkable. Screening CBC electrolytes are unremarkable. Patient is noted to have hematuria but this is likely secondary to recently starting her menstrual cycle. Patient was given a liter of IV fluids as well as Zofran in the ER with some improvement in the nausea. However she continued to report left-sided abdominal pain therefore CT was completed which did not show any worrisome findings. She does have diverticulosis without diverticulitis. An incidental finding of a left ovarian cyst. Patient will be prescribed some Zofran at home recommend clear liquid diet until symptoms begin to improve. I did order stool studies as well as a C. difficile but patient was unable to provide a stool sample here in the ER I did recommend that she is able to provide one at home she may return the sample for testing. Emergent worrisome return precautions discussed. Departure - Departure Disposition: 01 Home, Self Care Clinical Impression: Nausea & vomiting Qualifiers: Vomiting type: unspecified Vomiting Intractability: non-intractable Qualified Code(s): R11.2 - Nausea with vomiting, unspecified Diarrhea Qualifiers: Diarrhea type: unspecified type Qualified Code(s): R19.7 - Diarrhea, unspecified Condition: Stable Record reviewed to determine appropriate education?: Yes Instructions: ED Vomiting Diarrhea Nonspecific Ad Follow-Up: CASSANDRA TAVERAS PA-C [Primary Care Provider] - Prescriptions: Ondansetron Odt [Zofran] 4 mg TL Q6H PRN #10 tablet PRN Reason: Nausea / Vomiting Comments: Shirlene you were seen in the ER today with nausea vomiting and diarrhea. Your Covid screening is negative today. The CT scan did not show any worrisome findings. We do see diverticulosis, but no findings of inflammation or diverticulitis. You do have an incidental finding of a left ovarian cyst however this is not likely the cause of your symptoms. Your screening labs are all essentially normal. I am prescribing some Zofran to help with the nausea at home. I recommend clear liquid diet for the next 24 to 48 hours then slowly advance your diet with bananas, rice, applesauce and then toast. If you are able to provide a stool sample at home you may return it to the hospital for us to test. If at any point you feel that your symptoms are worsening, you have black or bloody stools, suddenly severe or different abdominal pain or uncontrolled vomiting then please return to the ER for a 2nd evaluation.
[2021-06-29 13:48] LABS: BILIRUBIN,URINE NEGATIVE (NEGATIVE); GLUCOSE, URINE (UA) NEGATIVE (NEGATIVE); KETONES,URINE (UA) NEGATIVE (NEGATIVE); LEUKOCYTE ESTERASE, URINE NEGATIVE (NEGATIVE); NITRITE,URINE NEGATIVE (NEGATIVE); OCCULT BLOOD,URINE LARGE (NEGATIVE); PROTEIN,URINE NEGATIVE (NEGATIVE); UROBILINOGEN,URINE 0.2 (NORMAL) E.U./dL (NORMAL)
[2021-06-29 13:51] LABS: ALBUMIN/GLOBULIN RATIO 1.3 (1.0-2.2); BILIRUBIN,TOTAL 0.7 mg/dL (0.2-1.0); CALCIUM 9.1 mg/dL (8.5-10.3); CREATININE 0.8 mg/dL (0.4-1.0); POTASSIUM 4.1 mmol/L (3.5-5.0); TOTAL PROTEIN 7.1 g/dL (6.7-8.2)
[2021-06-29 13:52] LABS: CLARITY,URINE HAZY (CLEAR)
[2021-06-29 13:57] LABS: BACTERIA,URINE Rare /HPF (None Seen); RBC,URINE TNTC /HPF (0-5); SQUAMOUS EPITHELIAL CELL,UR RARE Squamous (<= Few); WBC,URINE 0-3 /HPF (0-5)
[2021-06-29 14:46] LABS: B. PARAPERTUSSIS- RESP PCR PAN NOT DETECTED; B. PERTUSSIS- RESP PCR PANEL NOT DETECTED; C. PNEUMONIAE- RESP PCR PANEL NOT DETECTED; CORONAVIRUS 229E-RESP PCR NOT DETECTED; CORONAVIRUS HKU1-RESP PCR NOT DETECTED; CORONAVIRUS NL63-RESP PCR NOT DETECTED; CORONAVIRUS OC43-RESP PCR NOT DETECTED; HUMAN METAPNEUMOVIRUS NOT DETECTED; INFLUENZA A- RESP PCR PANEL NOT DETECTED; INFLUENZA B - RESP PCR PANEL NOT DETECTED; M. PNEUMONIAE- RESP PCR PANEL NOT DETECTED; PARAINFLUENZA VIRUS 1 NOT DETECTED; PARAINFLUENZA VIRUS 2 NOT DETECTED; PARAINFLUENZA VIRUS 3 NOT DETECTED; PARAINFLUENZA VIRUS 4 NOT DETECTED; RHINOVIRUS/ENTEROVIRUS NOT DETECTED; RSV- RESP PCR PANEL NOT DETECTED; SARS-CoV-2 -RESP PCR PANEL NOT DETECTED
[2021-06-29] MEDS ORDERED: IOPAMIDOL-300 50 ML VIAL ONE (15:23)
[2021-06-29 15:30] VITALS: BP 121/77
[2021-06-29] MEDS ORDERED: IOPAMIDOL-300 50 ML VIAL IVP ONE (15:44)
--- NOTE | 2021-06-29 15:58 | CT Report ---
PROCEDURE: Abdomen/Pelvis W INDICATIONS: n/v/d CONTRAST: IV CONTRAST: Isovue 300 ml: 100 PO CONTRAST: *NO PO CONTRAST TECHNIQUE: After the administration of intravenous contrast, 5 mm thick sections acquired from the diaphragms to the symphysis. 5 mm thick coronal and sagittal reformats were acquired. For radiation dose reducti on, the following was used: automated exposure control, adjustment of mA and/or kV according to trini ent size. COMPARISON: CT Abdomen Pelvis 11/08/20, 07/14/19 FINDINGS: Image quality: Excellent. ABDOMEN: Lung bases: Lung bases are clear. Heart size is normal. Solid organs: Liver and spleen are normal in size and enhancement. Gallbladder is not visualized. Biliary system is non dilated. Pancreas enhances normally. No adrenal nodules. Kidneys demonstrate normal size and enhancement, without hydronephrosis. Peritoneum and bowel: Bowel loops demonstrate normal wall thickness and caliber. Minimal scattered d iverticula. No inflammatory change. No free fluid or air. Nodes and vessels: No retroperitoneal or mesenteric adenopathy by size criteria. Aorta and inferior vena cava are normal in size. Miscellaneous: No ventral hernias. PELVIS: Genitourinary: Bladder wall thickness is normal. There is a 3.0 x 3.1 cm low attenuation focus in t he left ovary. Miscellaneous: No inguinal hernias or adenopathy. Bones: No suspicious bony lesions. No vertebral body compression fractures. IMPRESSION: Left ovarian cyst. Diverticulosis. Reviewed by: Lisa Johnson MD on 06/29/2021 3:56 PM PDT Approved by: Lisa Johnson MD on 06/29/2021 3:56 PM PDT Station ID: [id number]
[2021-06-29] MEDS ORDERED: ONDANSETRON ODT 4 MG TABLET TL STA (16:11)
== END 2021-06-29 16:26 | disposition home or self-care (01) ==
LOC: ED 12:48
DX: R11.2 Nausea with vomiting, unspecified (principal); R19.7 Diarrhea, unspecified; I10 Essential (primary) hypertension; Z20.822 Contact with and (suspected) exposure to COVID-19
CPT/HCPCS: 0202U; 36415; 74177; 80053; 81001; 83690; 85025; 96361; 96374; 99283; 99284; Q0162; Q9967; 81003; 87086

== ENCOUNTER 2021-07-08 18:04 | Outpatient (CLI) | payer OTHER ==
--- NOTE | 2021-07-08 18:33 | CT Report ---
PROCEDURE: THORACIC SPINE WO INDICATIONS: RADICULOPATHY LUMBAR REGION, CHRONIC PAIN SYNDROME TECHNIQUE: Noncontrast 3 mm thick sections acquired through the region of interest in the thoracic spine. Sagit glenis and coronal reformats were then constructed. For radiation dose reduction, the following was used : automated exposure control, adjustment of mA and/or kV according to patient size. COMPARISON: Correlation is made with prior chest radiographs, 07/31/2017. Correlation is also made wi th the accompanying lumbar spine CT 07/08/2021. FINDINGS: Image quality: Excellent. Bones: There is normal overall bony alignment. No acute vertebral body compression fractures. No s uspicious sclerotic or lytic bony lesions. Central spinal canal is of normal overall caliber. Thoracic spine similar lesions are seen posteriorly, which extend to the T6-T7 level. Scattered levels of degenerative change are seen, with mild disc space narrowing with associated endp late irregularity and sclerosis. At the T7-T8 level, there is moderate central canal narrowing, with posteriorly directed endplate osteophytes, as on series 8 image 39 and on series 4 image 93. Milder d egenerative changes are seen elsewhere. Soft tissues: No paravertebral masses or hematomas. Visualized posteromedial lungs appear clear. IMPRESSION: Focal T7-T8 degenerative change. Thoracic spine stimulator leads are seen posteriorly which extended to the T6-T7 level. Reviewed by: Torrey Boyd MD on 07/08/2021 5:31 PM AKRAMANA Approved by: Torrey Boyd MD on 07/08/2021 5:31 PM AKDT Station ID: [id number]
--- NOTE | 2021-07-08 18:42 | CT Report ---
PROCEDURE: LUMBAR SPINE WO INDICATIONS: RADICULOPATHY LUMBAR REGION, CHRONIC PAIN SYNDROME TECHNIQUE: Noncontrast 3 mm thick sections acquired from the T12 level to the sacrum. Sagittal and coronal refo rmats were constructed. For radiation dose reduction, the following was used: automated exposure co ntrol, adjustment of mA and/or kV according to patient size. COMPARISON: Prior lumbar CT, 12/28/2018. Correlation is made with prior abdomen pelvis CT examination s 06/29/2021 and 11/08/2020. Correlation is also made with the accompanying thoracic spine CT, 07/08/2021. FINDINGS: Image quality: Excellent. Bones: There is normal bony alignment. No acute vertebral body compression fractures. No suspiciou s lytic or blastic bony lesions. Central spinal caliber is of normal overall caliber. No pars defec ts. T12-L1: There is mild to moderate loss of disc height. No significant neural foraminal or central ca nal narrowing can be seen. L1-L2: Mild to moderate loss of disc height is seen. Mild disc bulge is seen. No significant saji roforaminal narrowing can be seen. Mild central canal narrowing is seen. L2-L3: Mild to moderate loss of disc height is seen. Moderate disc bulge is seen, with a central d isc protrusion. No significant neuroforaminal narrowing can be seen. At least moderate central canal narrowing is seen. These imaging findings are similar to the images of the prior examination. L3-L4: The disc height is well-preserved. Moderate disc bulge is seen, with a central disc protrusi on. There is moderate left-sided and no significant right-sided neuroforaminal narrowing seen. There is moderate central canal narrowing. There is central canal narrowing appears progressed compared to 2019. L4-L5: The disc height is well-preserved. Moderate disc bulge is seen at this level. There is at least moderate right-sided and moderate to severe left-sided neuroforaminal narrowing seen. At least moderate central canal narrowing is seen. These imaging findings are similar to the images of the pr ior examination. L5-S1: The disc height is well-preserved. Moderate facet hypertrophy is seen. There is at least m oderate right-sided and mild left-sided neuroforaminal narrowing seen. Mild to moderate central canal narrowing is seen. These imaging findings are similar to the images of the prior examination. Soft tissues: No retroperitoneal masses or hematomas. A low-density right adrenal nodule is again se en, which measures 1 cm and 18 Hounsfield units. Visualized aorta is normal in caliber. IMPRESSION: Multiple levels of premature lumbar spine degenerative change are seen. There is mild progression of degenerative change at L3-L4 compared to 2019. Incidental note is made of: Stable right adrenal nodule. Reviewed by: Torrey Boyd MD on 07/08/2021 5:40 PM [facility] Approved by: Torrey Boyd MD on 07/08/2021 5:40 PM [facility] Station ID: [id number]
== END 2021-07-08 18:05 | disposition home or self-care (01) ==
LOC: DI 18:04
PROVIDERS: ATTEND Physician Assistant
DX: M51.14 Intervertebral disc disorders with radiculopathy, thoracic region (principal); M48.04 Spinal stenosis, thoracic region; Z96.82 Presence of neurostimulator; M51.16 Intervertebral disc disorders with radiculopathy, lumbar region; M48.061 Spinal stenosis, lumbar region without neurogenic claudication; M47.27 Other spondylosis with radiculopathy, lumbosacral region; M48.07 Spinal stenosis, lumbosacral region; M51.17 Intervertebral disc disorders with radiculopathy, lumbosacral region

== ENCOUNTER 2021-10-13 08:55 | Outpatient (CLI) | payer OTHER ==
[2021-10-13 12:25] LABS: IRON 159 ug/dL (28-170)
[2021-10-13 13:01] LABS: CRP - C-REACTIVE PROTEIN < 1.0 mg/dL (0-1.0)
[2021-10-13 13:19] LABS: % IRON SATURATION 38 % (20-50); TOTAL IRON BINDING CAPACITY 413 ug/dL (250-450); TRANSFERRIN 295 mg/dL (192-382)
== END 2021-10-13 08:56 | disposition home or self-care (01) ==
LOC: LAB.N 08:55
PROVIDERS: ATTEND Physician Assistant
DX: G25.81 Restless legs syndrome (principal); E83.10 Disorder of iron metabolism, unspecified
CPT/HCPCS: 36415; 82728; 83540; 84466; 86140

== ENCOUNTER 2021-12-16 11:07 | Emergency (ER) | payer OTHER ==
--- NOTE | 2021-12-16 11:48 | XRAY Report ---
PROCEDURE: Chest 1 View X-Ray INDICATIONS: SOA TECHNIQUE: One view of the chest was acquired. COMPARISON: August 19, 2018 FINDINGS: SUPPORT DEVICES: Partially imaged spinal device is noted. LUNGS/PLEURA: No focal consolidation, pleural effusion or space-occupying pneumothorax. MEDIASTINUM: The cardiomediastinal silhouette is within normal limits. BONES/SOFT TISSUES: No acute abnormality. IMPRESSION: 1.No acute cardiopulmonary abnormality. Reviewed by: Lance Cottrell MD on 12/16/2021 11:46 AM [facility] Approved by: Lance Cottrell MD on 12/16/2021 11:46 AM [facility] Station ID: [id number]
[2021-12-16] MEDS ORDERED: PROCHLORPERAZINE 10 MG/2 ML VIAL IVP STA (13:13)
[2021-12-16] MEDS ORDERED: diphenhydrAMINE INJ 50 MG/ML VIAL IVP STA (13:13)
[2021-12-16] MEDS ORDERED: SODIUM CHLORIDE 0.9% 1,000 ML IV STA ×2 (13:13→13:16)
--- NOTE | 2021-12-16 13:16 | ED Physician Documentation ---
History of Present Illness - Stated complaint Stated Complaint: SOA/NAUSEA - Chief complaint Chief Complaint: Resp - Additonal information Additional information: 36-year-old female presents emergency department for evaluation of 2 days wors ening headache, generalized malaise feeling dizzy and mild shortness of air. She reports that she was diagnosed with Covid on 30 November. She is fully vaccinated and boosted though she has a history of immune compromise secondary to psoriatic arthritis. She is on a biologic for this. This headache feels similar to other migraines that she has had. She did take sumatriptan and however it did not break the cycle. This is not the worst headache of her life. She does have some associated photophobia. She denies any fevers, no falls or trauma. She is nauseated and has some associated anorexia but no vomiting. No abdominal pain or diarrhea. No dysuria urgency or frequency. She was on oral contraception. Denies possibility of as she has not been sexually active. Review of Systems Constitutional: reports: Reviewed and negative. denies: Fever Eyes: reports: Photophobia Nose: reports: Reviewed and negative Throat: reports: Reviewed and negative Cardiac: reports: Reviewed and negative Respiratory: reports: Reviewed and negative GI: reports: Nausea. denies: Vomiting, Constipation, Diarrhea : reports: Reviewed and negative Skin: reports: Reviewed and negative Musculoskeletal: reports: Reviewed and negative Neurologic: reports: Generalized weakness. 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: None : Incontinence HEENT: None Psych: None Musculoskeletal: Rheumatoid arthritis, Chronic back pain Derm: None - Past Surgical History Past Surgical History: Yes Ortho: Spine surgery /HOUSEKEEPING STAFF: section - Present Medications Home Medications: Ambulatory Orders Medication Instructions Recorded Confirmed Orthotri Nesa 1 tab ORAL DAILY 07/31/15 12/06/18 Cholecalciferol (Vitamin D3) 3,000 units PO DAILY 08/19/18 12/09/18 [Vitamin D3] Magnesium Oxide [Magnesium] 400 mg PO DAILY 08/19/18 12/09/18 Nortriptyline HCl 40 mg PO DAILY 08/19/18 12/09/18 Zolpidem Tartrate [Ambien] 10 mg PO DAILY 08/19/18 12/09/18 Metoprolol Tartrate 25 mg PO DAILY 08/23/18 12/09/18 Pantoprazole Sodium [Protonix] 20 mg PO DAILY 08/23/18 12/09/18 Ibuprofen [Motrin] 800 mg PO PRN PRN 12/06/18 12/09/18 oxyCODONE/ACET 5/325 [Percocet 5 1 tab PO TID 12/06/18 12/09/18 mg/325 mg] Cetirizine [ZyrTEC] 10 mg PO BID #15 tablet 04/25/21 dexAMETHasone [Decadron] 4 mg PO DAILY #5 tablet 04/25/21 Ondansetron Odt [Zofran] 4 mg TL Q6H PRN #10 tablet 06/29/21 Ondansetron Odt [Zofran] 4 mg TL Q6H PRN #10 tablet 12/16/21 - Allergies Allergies/Adverse Reactions: Allergies Allergy/AdvReac Type Severity Reaction Status Date / Time iodine Allergy Intermediate Rash Verified 12/16/21 11:21 Penicillins Allergy Rash Verified 12/16/21 11:21 - Social History Does the pt smoke?: No Smoking Status: Never smoker Does the pt drink ETOH?: No Does the pt have substance abuse?: No - Immunizations Immunizations are current?: Yes - POLST Patient has POLST: No PD ED PE NORMAL - General General: Alert and oriented X 3, No acute distress, Well developed/nourished - HEENT HEENT: Atraumatic - Neck Neck: Supple, no meningeal sign, No adenopathy - Cardiac Cardiac: RRR, No murmur - Respiratory Respiratory: No respiratory distress, Clear bilaterally - Abdomen Abdomen: Normal bowel sounds, Soft, Non tender - Back Back: No CVA TTP, No spinal TTP - Derm Derm: Normal color, Warm and dry, No rash - Extremities Extremities: No deformity - Neuro Neuro: Alert and oriented X 3, 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, No motor deficit, Normal speech Eye Opening: Spontaneous Motor: Obeys Commands Verbal: Oriented GCS Score: 15 - Psych Psych: Normal mood Results - Vitals Vitals: Vital Signs - 24 hr 12/16/21 12/16/21 12/16/21 11:13 13:31 13:59 Temperature 36.4 C L Heart Rate 97 80 78 Respiratory 16 20 14 Rate Blood Pressure 142/95 H 143/83 H 143/83 H O2 Saturation 100 100 98 Oxygen O2 Source Room air - Rads (name of study) CXR Radiology: Final report received (no acute cardiopulmonary abdnormality) PD MEDICAL DECISION MAKING - ED course Complexity details: reviewed results, re-evaluated patient, considered differential, d/w patient ED course: 36-year-old female presents emergency department for evaluation of a headache that began 2 days ago. Has a history of migraines and this is similar though it did not respond to her usual arresting medications. No fevers or nuchal rigidity. Not sudden onset nor worst of life. Low suspicion for infectious etiology or subarachnoid hemorrhage. She has a nonfocal neuro normal neuro exam Patient was given a liter of IV fluids as well as Compazine and Benadryl with good resolution of the headache. Tolerating sips of clear liquids. She will be discharged home. Prescription of Zofran was sent to help with nausea. Encouraged frequent sips of clear liquids. Otherwise emergent return precautions were discussed for worsening symptoms.. Departure - Departure Disposition: , Self Care Clinical Impression: Migraine headache Qualifiers: Migraine type: other Status migrainosus presence: without status migrainosus Intractability: not intractable Qualified Code(s): G43.809 - Other migraine, not intractable, without status migrainosus Condition: Stable Record reviewed to determine appropriate education?: Yes Prescriptions: Ondansetron Odt [Zofran] 4 mg TL Q6H PRN #10 tablet PRN Reason: Nausea / Vomiting Comments: You were seen today in the emergency department for a few days of feeling generally unwell as well as having a headache that did not respond to usual medications. Here in the emergency department we gave you IV fluids as well as Compazine and Benadryl. The headache has started to resolve. We did give you a one-time dose of Decadron which is a steroid that helps prevent the return of the headache moving forward. When you go home I encourage you to drink a lot of water and get plenty of sleep. When you wake up after good period of rest I would assume that the headache is mostly gone. I have sent a prescription for some Zofran to the [facility] in [place]. If despite the Zofran at home, you having uncontrolled vomiting, develop any fe vers or have a worsening headache then please return to the ER for second evaluation.
[2021-12-16] MEDS ORDERED: CHERRY SYRUP 10 ML UDC PO ONE (14:01)
[2021-12-16] MEDS ORDERED: DEXAMETHASONE 10 MG/ML VIAL PO STA (14:01)
[2021-12-16 14:20] VITALS: BP 131/70
== END 2021-12-16 14:35 | disposition home or self-care (01) ==
LOC: ED 11:07
DX: G43.809 Other migraine, not intractable, without status migrainosus (principal); I10 Essential (primary) hypertension; Z20.822 Contact with and (suspected) exposure to COVID-19
CPT/HCPCS: 71045; 87635; 96361; 96374; 99283; 99284; A9270; J1200

== ENCOUNTER 2022-01-16 08:00 | Outpatient (CLI) | payer OTHER ==
--- NOTE | 2022-01-17 11:39 | XRAY Report ---
PROCEDURE: Thoracic Spine 3 View INDICATIONS: LOW BACK PX TECHNIQUE: 3 views of the thoracic spine were acquired. COMPARISON: None. FINDINGS: Bones: No fractures or dislocations. No suspicious bony lesions. 12 pairs of ribs are noted, and a ppear intact where visualized. There is mild diffuse intervertebral disc space narrowing and osteoph ytosis. No compression deformities. Soft tissues: No paravertebral stripe thickening. Epidural neural stimulator is projected over the mid thoracic spine. IMPRESSION: Mild degenerative change. No compression deformities. Reviewed by: Madeleine Olvera MD on 01/17/2022 11:38 AM PDT Approved by: Madeleine Olvera MD on 01/17/2022 11:38 AM PDT Station ID: [id number]
== END 2022-01-16 23:59 | disposition home or self-care (01) ==
LOC: DI.N 08:00
PROVIDERS: ATTEND Anesthesiology Pain Medicine
DX: M51.34 Other intervertebral disc degeneration, thoracic region (principal); G89.29 Other chronic pain

== ENCOUNTER 2022-01-25 08:00 | Outpatient (CLI) | payer OTHER ==
[2022-01-25 11:51] LABS: BASOPHILS % (AUTO) 0.5 %; EOSINOPHILS # (AUTO) 0.4 10^3/uL (0.0-0.7); EOSINOPHILS % (AUTO) 6.1 %; HCT - HEMATOCRIT 39.9 % (37.0-47.0); LYMPHOCYTES # (AUTO) 2.2 10^3/uL (1.5-3.5); LYMPHOCYTES % (AUTO) 38.8 %; MEAN CORPUSCULAR HEMOGLOBIN 29.3 pg (27.0-31.0); MEAN CORPUSCULAR HGB CONC 32.6 g/dL (32.0-36.0); MEAN CORPUSCULAR VOLUME 90.1 fL (81.0-99.0); MEAN PLATELET VOLUME 9.1 fL (7.9-10.8); MONOCYTES # (AUTO) 0.5 10^3/uL (0.0-1.0); MONOCYTES % (AUTO) 8.8 %; NEUTROPHILS # (AUTO) 2.6 10^3/uL (1.5-6.6); NEUTROPHILS % (AUTO) 45.6 %; PLT - PLATELET COUNT 286 10^3/uL (130-450); RED BLOOD COUNT 4.43 10^6/uL (4.20-5.40); RED CELL DISTRIBUTION WIDTH 13.2 % (12.0-15.0); WHITE BLOOD COUNT 5.8 x10^3/uL (4.8-10.8)
[2022-01-25 12:42] LABS: ALBUMIN 3.8 g/dL (3.2-5.5); ALBUMIN/GLOBULIN RATIO 1.2 (1.0-2.2); ALKALINE PHOSPHATASE 32 IU/L (42-121); ALT ALANINE AMINOTRANSFERASE 30 IU/L (10-60); AST ASPARTATE AMINOTRANSFERASE 31 IU/L (10-42); BILIRUBIN,TOTAL 0.2 mg/dL (0.2-1.0); BUN - BLOOD UREA NITROGEN 12 mg/dL (6-20); CALCIUM 9.4 mg/dL (8.5-10.3); CARBON DIOXIDE - CO2 23 mmol/L (21-32); CHLORIDE 105 mmol/L (101-111); CREATININE 0.7 mg/dL (0.4-1.0); GFR - MDRD 96 (>89); GLUCOSE 96 mg/dL (70-100); POTASSIUM 3.9 mmol/L (3.5-5.0); SODIUM 138 mmol/L (135-145); TOTAL PROTEIN 6.9 g/dL (6.7-8.2)
[2022-01-25 12:46] LABS: CRP - C-REACTIVE PROTEIN < 1.0 mg/dL (0-1.0)
== END 2022-01-25 23:59 ==
LOC: LAB.N 08:00
PROVIDERS: ATTEND Internal Medicine Rheumatology
DX: L40.50 Arthropathic psoriasis, unspecified (principal)
CPT/HCPCS: 36415; 80053; 85025; 85651; 86140

== ENCOUNTER 2022-04-04 22:02 | Outpatient (CLI) | payer OTHER | END 2022-04-04 22:03 | disposition critical access hospital (66) | LOC: EMS 22:02 | DX: M54.50 Low back pain, unspecified (principal); G89.29 Other chronic pain; R20.2 Paresthesia of skin | CPT/HCPCS: A0425; A0427 ==

== ENCOUNTER 2022-04-04 22:56 | Emergency (ER) | payer OTHER ==
[2022-04-04] MEDS ORDERED: DEXAMETHASONE 10 MG/ML VIAL IVP STA (23:22)
[2022-04-04] MEDS ORDERED: KETOROLAC 30 MG/ML VIAL IVP STA ×2 (23:23→23:35)
[2022-04-04] MEDS ORDERED: ONDANSETRON 4 MG/2 ML VIAL IVP STA (23:35)
[2022-04-05] MEDS ORDERED: HYDROmorphone 1 MG/ML CARPUJECT IVP STA (00:49)
--- NOTE | 2022-04-05 00:55 | CT Report ---
PROCEDURE: LUMBAR SPINE WO INDICATIONS: acute on chronic low back pain TECHNIQUE: Noncontrast 3 mm thick sections acquired from the T12 level to the sacrum. Sagittal and coronal refo rmats were constructed. For radiation dose reduction, the following was used: automated exposure co ntrol, adjustment of mA and/or kV according to patient size. COMPARISON: CT lumbar spine 05/27/2019. FINDINGS: Image quality: Excellent. Bones: There is preserved bony alignment. No acute vertebral body compression fractures. No suspic ious lytic or blastic bony lesions. There is a hemangioma within the L3 vertebral body redemonstrated . Central spinal caliber is of normal overall caliber. There is a nondisplaced right pars defect at L5. This demonstrates corticated margins and appears unchanged from the prior study consistent with a chronic process. There are minimal multilevel disc bulges. No definite high-grade spinal canal or ne uroforaminal narrowing. Soft tissues: No retroperitoneal masses or hematomas. Visualized aorta is normal in caliber. There is a partially visualized right posterior gluteal subcutaneous neurostimulator device. IMPRESSION: 1. No acute fracture or subluxation. 2. Mild multilevel spinal canal narrowing. No definite high-grade spinal canal or neuroforaminal narr owing. Reviewed by: Raul Schofield MD on 04/05/2022 12:53 AM PDT Approved by: Raul Schofield MD on 04/05/2022 12:53 AM PDT Station ID: [id number]
[2022-04-05] MEDS ORDERED: CYCLOBENZAPRINE 10 MG TABLET PO STA (01:56)
[2022-04-05] MEDS ORDERED: oxyCODONE 5 MG TABLET PO STA (01:56)
--- NOTE | 2022-04-05 02:46 | ED Physician Documentation ---
PD HPI BACK PAIN - Stated complaint Stated Complaint: BACK PX - Chief complaint Chief Complaint: Trauma Ch/Bk - History obtained from History obtained from: Patient - Additional information Additional information: Patient is a 37-year-old female with history of chronic back pain presenting for worsening of her chronic low back pain. Patient was putting on her underwear this morning when she felt like her back went out on her. She has been trying her usual regiment of medications today without improvement. She has a /Combination ketamine Lidocaine cream as well as oxycodone that she has taken t wice today without improvement in her symptoms. She additionally has a spinal stimulator. She called EMS and they gave her fentanyl on route which has not helped. Pain is midline in the low back and feels sharp. She has chronic sciatica pain to bilateral lower extremities which she states is the same. She denies saddle anesthesia, bowel or bladder dysfunction, fevers, recent spinal injection. She has an appointment with her pain management doctors in the morning in [place].Her pain is better at rest And laying on her right side and worse with movements. Review of Systems Constitutional: denies: Fever Nose: denies: Congestion Cardiac: denies: Chest pain / pressure, Palpitations Respiratory: denies: Dyspnea, Cough GI: denies: Abdominal Pain, Nausea, Vomiting : denies: Dysuria, Incontinent Skin: denies: Rash Musculoskeletal: reports: Back pain Neurologic: denies: Headache PD PAST MEDICAL HISTORY - Past Medical History Past Medical History: Yes Cardiovascular: Hypertension Respiratory: Asthma Neuro: Migraines Endocrine/Autoimmune: None GI:  [employer]: None : Incontinence HEENT: None Psych: None Musculoskeletal: Rheumatoid arthritis, Chronic back pain Derm: None - Past Surgical History Past Surgical History: Yes Ortho: Spine surgery /[employer]: section - Present Medications Home Medications: Ambulatory Orders Medication Instructions Recorded Confirmed Orthotri Nesa 1 tab ORAL DAILY 07/31/15 04/04/22 Cholecalciferol (Vitamin D3) 3,000 units PO DAILY 08/19/18 12/09/18 [Vitamin D3] Magnesium Oxide [Magnesium] 400 mg PO DAILY 08/19/18 12/09/18 Nortriptyline HCl 40 mg PO DAILY 08/19/18 04/04/22 Zolpidem Tartrate [Ambien] 10 mg PO DAILY 08/19/18 12/09/18 Metoprolol Tartrate 25 mg PO DAILY 08/23/18 04/04/22 Pantoprazole Sodium [Protonix] 20 mg PO DAILY 08/23/18 12/09/18 Ibuprofen [Motrin] 800 mg PO PRN PRN 12/06/18 12/09/18 oxyCODONE/ACET 5/325 [Percocet 5 1 tab PO TID 12/06/18 12/09/18 mg/325 mg] Cetirizine [ZyrTEC] 10 mg PO BID #15 tablet 04/25/21 dexAMETHasone [Decadron] 4 mg PO DAILY #5 tablet 04/25/21 Ondansetron Odt [Zofran] 4 mg TL Q6H PRN #10 tablet 06/29/21 Ondansetron Odt [Zofran] 4 mg TL Q6H PRN #10 tablet 12/16/21 Buprenorphine HCl [Belbuca] 300 mcg PO DAILY 04/04/22 04/04/22 Zolpidem Tartrate [Edluar] 5 mg PO DAILY 04/04/22 04/04/22 - Allergies Allergies/Adverse Reactions: Allergies Allergy/AdvReac Type Severity Reaction Status Date / Time iodine Allergy Intermediate Rash Verified 04/04/22 23:05 Penicillins Allergy Rash Verified 04/04/22 23:05 - Social History Does the pt smoke?: No Smoking Status: Never smoker Does the pt drink ETOH?: No Does the pt have substance abuse?: No - Immunizations Immunizations are current?: Yes - POLST Patient has POLST: No PD ED PE NORMAL - General General: Alert and oriented X 3, No acute distress, Well developed/nourished - HEENT HEENT: Atraumatic - Neck Neck: Supple, no meningeal sign - Cardiac Cardiac: RRR, No murmur, Strong equal pulses - Respiratory Respiratory: No respiratory distress, Clear bilaterally - Abdomen Abdomen: Normal bowel sounds, Soft, Non tender, Non distended - Back Back: Other (Midline Lumbar spinal tenderness to palpation with no erythema, swelling or deformity) - Extremities Extremities: No tenderness to palpate, No edema, No calf tenderness / cord, Other (Intact distal pulses, motor and sensation grossly intact; Normal plantar and dorsiflexion at ankles, Negative straight leg raise bilaterally) - Neuro Neuro: No motor deficit, No sensory deficit - Psych Psych: Normal mood Results - Vitals Vitals: Vital Signs - 24 hr 04/05/22 04/05/22 04/05/22 01:00 03:00 03:38 Temperature 36.5 C Heart Rate 107 H 89 82 Respiratory 19 18 18 Rate Blood Pressure 137/87 H 132/80 H 131/78 H O2 Saturation 100 100 100 Oxygen O2 Source Room air - Labs Labs: Laboratory Tests 04/05/22 03:03 Urine Color YELLOW Urine Clarity CLEAR Urine pH 8.5 H Ur Specific [place] 1.025 Urine Protein NEGATIVE Urine Glucose (UA) NEGATIVE Urine Ketones NEGATIVE Urine Occult Blood NEGATIVE Urine Nitrite NEGATIVE Urine Bilirubin NEGATIVE Urine Urobilinogen 0.2 (NORMAL) Ur Leukocyte Esterase SMALL H Urine RBC None Seen Urine WBC 0-3 Ur Squamous Epith Cells MOD Squamous H Urine Crystals 0-2 Calcium Oxalate Urine Bacteria Few Ur Microscopic Review INDICATED Urine Culture Comments NOT INDICATED Urine HCG, Qual NEGATIVE PD MEDICAL DECISION MAKING - ED course Complexity details: reviewed results, re-evaluated patient, d/w patient ED course: Patient evaluated for acute on chronic low back pain which is not relieved by her home medication regiment. Her exams did not suggest cauda equina, Epidural hematom/abscess or cord compression. CT without acute findings. Patient did have some improvement with regiment in the emergency department was able to ambulate to the bathroom on her own with a walker For additional support. At this time, I recommend patient continue to follow-up with her pain management doctor and has an appointment to be seen later this morning. She is aware that we are not able to provide Prescriptions for any pain medications at this time given she is established with a pain doctor and is scheduled to talk to them this morning. She is aware of return precautions. No abdominal tenderness on exam. 0253 - Pt able to get up to bathroom. Departure - Departure Disposition: 01 Home, Self Care Clinical Impression: Chronic back pain Qualifiers: Back pain location: low back pain Back pain laterality: midline Sciatica presence: with sciatica Sciatica laterality: bilateral sciatica Qualified Code(s): M54.41 - Lumbago with sciatica, right side Condition: Stable Instructions: ED Neck Back Pain General Comments: Rosemary - You were evaluated for worsening of your chronic back pain.A CT scan did not show any new findings. You did receive repeated doses of IV pain medications in the emergency department. However, chronic pain can be difficult to treat and is best handled by your pain management doctors. Please keep your appointment to be seen today. Please try the medications that you have at home as well as rest, heat or ice to see if this helps reduce your pain. If you have any new symptoms such as Unable to control your urination or bowel function, Fevers then please return to the emergency department. Discharge Date/Time: 04/05/22 03:38
[2022-04-05 03:15] LABS: BILIRUBIN,URINE NEGATIVE (NEGATIVE); GLUCOSE, URINE (UA) NEGATIVE (NEGATIVE); KETONES,URINE (UA) NEGATIVE (NEGATIVE); LEUKOCYTE ESTERASE, URINE SMALL (NEGATIVE); NITRITE,URINE NEGATIVE (NEGATIVE); OCCULT BLOOD,URINE NEGATIVE (NEGATIVE); PH,URINE 8.5 PH (5.0-7.5); PROTEIN,URINE NEGATIVE (NEGATIVE); UROBILINOGEN,URINE 0.2 (NORMAL) E.U./dL (NORMAL)
[2022-04-05 03:25] LABS: BACTERIA,URINE Few /HPF (None Seen); CLARITY,URINE CLEAR (CLEAR); HCG UR QUAL NEGATIVE; RBC,URINE None Seen /HPF (0-5); SQUAMOUS EPITHELIAL CELL,UR MOD Squamous (<= Few); WBC,URINE 0-3 /HPF (0-5)
[2022-04-05 03:26] LABS: CRYSTALS,URINE 0-2 Calcium Oxalate /LPF
[2022-04-05 03:39] VITALS: BP 131/78
== END 2022-04-05 03:38 | disposition home or self-care (01) ==
LOC: EDUNIT# → ED 22:56
DX: M54.41 Lumbago with sciatica, right side (principal)
CPT/HCPCS: 72131; 81001; 81025; 96374; 96375; 99284; A9270; J1170; 81003; 87086

== ENCOUNTER 2022-06-01 14:43 | Outpatient (CLI) | payer OTHER ==
--- NOTE | 2022-06-01 17:20 | CT Report ---
PROCEDURE: Abdomen/Pelvis WO INDICATIONS: FLANK PAIN TECHNIQUE: Noncontrast 5 mm thick sections acquired from the diaphragms to the symphysis. 5 mm coronal and sagi ttal reformats were then performed. For radiation dose reduction, the following was used: automated exposure control, adjustment of mA and/or kV according to patient size. COMPARISON: CT abdomen with and without contrast dated 11/08/2020, CT abdomen and pelvis dated , CT abdomen and pelvis with contrast dated 06/29/2021. FINDINGS: Image quality: Excellent. ABDOMEN: Lung bases: Lung bases are clear. Heart size is normal. Solid organs: Liver and spleen are normal in size. Gallbladder gallbladder is not visualized, and i s presumed absent. Pancreas is normal in contours. No adrenal nodules. Kidneys are normal in size, without hydronephrosis or nephrolithiasis. Peritoneum and bowel: Unenhanced bowel loops demonstrate normal wall thickness and caliber. No free fluid or air. Nodes and vessels: No retroperitoneal or mesenteric adenopathy by size criteria. Aorta and inferior vena cava are normal in caliber. Miscellaneous: No ventral hernias. Dorsal column stimulator device. PELVIS: Genitourinary: Bladder wall thickness is normal. Miscellaneous: No inguinal hernias or adenopathy. Bones: No suspicious bony lesions. No vertebral body compression fractures. IMPRESSION: 1. No renal stones, ureteral stones, or hydronephrosis. 2. No evidence of acute abdominal process. 3. Presumed remote cholecystectomy. 4. Note made of dorsal column stimulator device. Reviewed by: Ronen Garcia MD on 06/01/2022 5:19 PM PDT Approved by: Ronen Garcia MD on 06/01/2022 5:19 PM PDT Station ID: [id number]
== END 2022-06-01 14:44 | disposition home or self-care (01) ==
LOC: DI 14:43
PROVIDERS: ATTEND Physician Assistant
DX: R10.9 Unspecified abdominal pain (principal)

== ENCOUNTER 2022-08-10 11:21 | Outpatient (CLI) | payer OTHER ==
--- NOTE | 2022-08-10 16:15 | XRAY Report ---
PROCEDURE: Sacrum/Coccyx INDICATIONS: COCCYDYNIA TECHNIQUE: 3 views of the sacrum and coccyx acquired. COMPARISON: None FINDINGS: Bones: No fractures or dislocations. No suspicious bony lesions. Soft tissues: Visualized bowel gas pattern is normal. No suspicious soft tissue densities. IMPRESSION: Normal sacrococcygeal radiographs Reviewed by: Brian Jenkins MD on 08/10/2022 3:13 PM [facility] Approved by: Brian Jenkins MD on 08/10/2022 3:13 PM [facility] Station ID: [id number]
== END 2022-08-10 23:59 | disposition home or self-care (01) ==
LOC: DI.N 11:21
PROVIDERS: ATTEND Anesthesiology Pain Medicine
DX: M53.3 Sacrococcygeal disorders, not elsewhere classified (principal)

== ENCOUNTER 2023-10-06 20:27 | Emergency (ER) | payer OTHER ==
[2023-10-06] MEDS ORDERED: MORPHINE 2 MG/ML CARPUJECT IVP STA (21:01)
[2023-10-06] MEDS ORDERED: ONDANSETRON 4 MG/2 ML VIAL IVP STA (21:01)
[2023-10-06] MEDS ORDERED: SODIUM CHLORIDE 0.9% 1,000 ML IV STA (21:01)
[2023-10-06] MEDS ORDERED: HYDROmorphone 1 MG/ML CARPUJECT IVP STA ×2 (21:07→23:03)
[2023-10-06 21:08] LABS: BILIRUBIN,URINE NEGATIVE (NEGATIVE); GLUCOSE, URINE (UA) NEGATIVE (NEGATIVE); KETONES,URINE (UA) NEGATIVE (NEGATIVE); LEUKOCYTE ESTERASE, URINE NEGATIVE (NEGATIVE); NITRITE,URINE NEGATIVE (NEGATIVE); OCCULT BLOOD,URINE NEGATIVE (NEGATIVE); PH,URINE 6.5 PH (5.0-7.5); PROTEIN,URINE NEGATIVE (NEGATIVE); UROBILINOGEN,URINE 0.2 (NORMAL) E.U./dL (NORMAL)
[2023-10-06 21:11] LABS: CLARITY,URINE CLEAR (CLEAR); HCG UR QUAL NEGATIVE
[2023-10-06 21:26] LABS: BASOPHILS % (AUTO) 0.3 %; EOSINOPHILS # (AUTO) 0.2 10^3/uL (0.0-0.7); EOSINOPHILS % (AUTO) 1.6 %; HCT - HEMATOCRIT 42.5 % (37.0-47.0); HGB - HEMOGLOBIN 13.7 g/dL (12.0-16.0); LYMPHOCYTES # (AUTO) 1.8 10^3/uL (1.5-3.5); LYMPHOCYTES % (AUTO) 14.9 %; MEAN CORPUSCULAR HEMOGLOBIN 27.6 pg (27.0-31.0); MEAN CORPUSCULAR HGB CONC 32.2 g/dL (32.0-36.0); MEAN CORPUSCULAR VOLUME 85.5 fL (81.0-99.0); MEAN PLATELET VOLUME 8.9 fL (7.9-10.8); MONOCYTES # (AUTO) 1.2 10^3/uL (0.0-1.0); MONOCYTES % (AUTO) 10.4 %; NEUTROPHILS # (AUTO) 8.5 10^3/uL (1.5-6.6); NEUTROPHILS % (AUTO) 72.5 %; PLT - PLATELET COUNT 320 10^3/uL (130-450); RED BLOOD COUNT 4.97 10^6/uL (4.20-5.40); RED CELL DISTRIBUTION WIDTH 13.7 % (12.0-15.0); WHITE BLOOD COUNT 11.8 x10^3/uL (4.8-10.8)
[2023-10-06] MEDS ORDERED: fentaNYL 100 MCG/2 ML VIAL IVP STA (21:40)
[2023-10-06] MEDS ORDERED: KETOROLAC 30 MG/ML VIAL IVP STA (21:40)
[2023-10-06 21:45] LABS: ALBUMIN 4.2 g/dL (3.2-5.5); ALBUMIN/GLOBULIN RATIO 1.4 (1.0-2.2); BILIRUBIN,TOTAL 0.4 mg/dL (0.2-1.0); CALCIUM 9.8 mg/dL (8.5-10.3); CREATININE 0.7 mg/dL (0.6-1.3); POTASSIUM 3.5 mmol/L (3.5-4.5); TOTAL PROTEIN 7.1 g/dL (6.4-8.9)
[2023-10-06] MEDS ORDERED: HYDROmorphone 0.5 MG/0.5 ML SYRINGE IVP STA (22:18)
[2023-10-06 22:20] LABS: B. PARAPERTUSSIS- RESP PCR PAN NOT DETECTED; B. PERTUSSIS- RESP PCR PANEL NOT DETECTED; C. PNEUMONIAE- RESP PCR PANEL NOT DETECTED; CORONAVIRUS 229E-RESP PCR NOT DETECTED; CORONAVIRUS HKU1-RESP PCR NOT DETECTED; CORONAVIRUS NL63-RESP PCR NOT DETECTED; CORONAVIRUS OC43-RESP PCR NOT DETECTED; HUMAN METAPNEUMOVIRUS NOT DETECTED; INFLUENZA A- RESP PCR PANEL NOT DETECTED; INFLUENZA B - RESP PCR PANEL NOT DETECTED; M. PNEUMONIAE- RESP PCR PANEL NOT DETECTED; PARAINFLUENZA VIRUS 1 NOT DETECTED; PARAINFLUENZA VIRUS 2 NOT DETECTED; PARAINFLUENZA VIRUS 3 NOT DETECTED; PARAINFLUENZA VIRUS 4 NOT DETECTED; RHINOVIRUS/ENTEROVIRUS NOT DETECTED; RSV- RESP PCR PANEL NOT DETECTED; SARS-CoV-2 -RESP PCR PANEL NOT DETECTED
--- NOTE | 2023-10-06 23:43 | ED Physician Documentation ---
History of Present Illness - Stated complaint Stated Complaint: FEVER/RT SIDE BACK PX/DIZZY - Chief complaint Chief Complaint: General - History obtained from History obtained from: Patient - Additonal information Additional information: Patient is a 38-year-old female presenting for evaluation of fever starting today as well as pain near her spinal cord stimulator. Patient states she had surgery on to have the battery replaced on the stimulator. 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 She has been having increased pain since the procedure and is taking Percocet for this. She is also on cephalexin that was given to her postoperatively. Today she has been having fevers up to 101. She also noticed redness around the site. Denies abnormal drainage. No nausea or vomiting. No cough, congestion, dysuria. Denies bowel or bladder incontinence. 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 : Incontinence HEENT: None Psych: None Musculoskeletal: Rheumatoid arthritis, Chronic back pain Derm: None - Past Surgical History Past Surgical History: Yes Ortho: Spine surgery /SHOCK ABSORBER INSTALLER: section - Present Medications Home Medications: Ambulatory Orders Medication Instructions Recorded Confirmed Orthotri Nesa 1 tab ORAL DAILY 07/31/15 04/04/22 Cholecalciferol (Vitamin D3) 3,000 units PO DAILY 08/19/18 12/09/18 [Vitamin D3] Magnesium Oxide [Magnesium] 400 mg PO DAILY 08/19/18 12/09/18 Nortriptyline HCl 40 mg PO DAILY 08/19/18 04/04/22 Zolpidem Tartrate [Ambien] 10 mg PO DAILY 08/19/18 12/09/18 Metoprolol Tartrate 25 mg PO DAILY 08/23/18 04/04/22 Pantoprazole Sodium [Protonix] 20 mg PO DAILY 08/23/18 12/09/18 Ibuprofen [Motrin] 800 mg PO PRN PRN 12/06/18 12/09/18 oxyCODONE/ACET 5/325 [Percocet 5 1 tab PO TID 12/06/18 12/09/18 mg/325 mg] Cetirizine [ZyrTEC] 10 mg PO BID #15 tablet 04/25/21 dexAMETHasone [Decadron] 4 mg PO DAILY #5 tablet 04/25/21 Ondansetron Odt [Zofran] 4 mg TL Q6H PRN #10 tablet 06/29/21 Ondansetron Odt [Zofran] 4 mg TL Q6H PRN #10 tablet 12/16/21 Buprenorphine HCl [Belbuca] 300 mcg PO DAILY 04/04/22 04/04/22 Zolpidem Tartrate [Edluar] 5 mg PO DAILY 04/04/22 04/04/22 Sulfamethox/Trimeth 800/160 1 each PO BID #14 tablet 10/07/23 [Bactrim Ds 800/160] - Allergies Allergies/Adverse Reactions: Allergies Allergy/AdvReac Type Severity Reaction Status Date / Time iodine Allergy Intermediate Rash Verified 10/06/23 20:31 Penicillins Allergy Rash Verified 10/06/23 20:31 morphine AdvReac Itching Verified 10/06/23 21:08 - Social History Does the pt smoke?: No Smoking Status: Never smoker Does the pt drink ETOH?: No Does the pt have substance abuse?: No - Immunizations Immunizations are current?: Yes - POLST Patient has POLST: No PD ED PE NORMAL - General General: Alert and oriented X 3, No acute distress, Well developed/nourished - HEENT HEENT: Atraumatic, Moist mucous membranes, Pharynx benign - Neck Neck: Supple, no meningeal sign - Cardiac Cardiac: RRR, Strong equal pulses - Respiratory Respiratory: No respiratory distress, Clear bilaterally - Abdomen Abdomen: Normal bowel sounds, Soft, Non tender, Non distended - Back Back: No spinal TTP (Incision to right flank with surrounding bruising and faint erythema, no abnormal drainage, no fluctuance) - Derm Derm: Warm and dry - Extremities Extremities: No calf tenderness / cord - Neuro Neuro: Alert and oriented X 3, No motor deficit, No sensory deficit, Normal speech Results - Vitals Vitals: Vital Signs - 24 hr 10/06/23 10/06/23 10/06/23 20:31 20:57 22:35 Temperature 37.9 C Heart Rate 63 80 97 Respiratory 24 18 18 Rate Blood Pressure 150/84 H 120/72 112/61 O2 Saturation 98 98 99 10/07/23 10/07/23 00:13 00:26 Temperature 36.9 C Heart Rate 84 89 Respiratory 17 18 Rate Blood Pressure 115/61 115/61 O2 Saturation 95 96 Oxygen O2 Source Room air - Labs Labs: Laboratory Tests 10/06/23 10/06/23 10/06/23 20:56 21:18 21:20 WBC 11.8 H RBC 4.97 Hgb 13.7 Hct 42.5 MCV 85.5 MCH 27.6 MCHC 32.2 RDW 13.7 Plt Count 320 MPV 8.9 Neut # (Auto) 8.5 H Lymph # (Auto) 1.8 [place] # (Auto) 1.2 H Eos # (Auto) 0.2 Baso # (Auto) 0.0 Absolute Nucleated RBC 0.00 Nucleated RBC % 0.0 Sodium Potassium Chloride Carbon Dioxide Anion Gap BUN Creatinine Estimated GFR (MDRD) Glucose Lactic Acid Calcium Total Bilirubin AST ALT Alkaline Phosphatase Total Protein Albumin Globulin Albumin/Globulin Ratio Lipase Urine Color LIGHT YELLOW Urine Clarity CLEAR Urine pH 6.5 Ur Specific [place] <=1.005 Urine Protein NEGATIVE Urine Glucose (UA) NEGATIVE Urine Ketones NEGATIVE Urine Occult Blood NEGATIVE Urine Nitrite NEGATIVE Urine Bilirubin NEGATIVE Urine Urobilinogen 0.2 (NORMAL) Ur Leukocyte Esterase NEGATIVE Ur Microscopic Review NOT INDICATED Urine Culture Comments NOT INDICATED Urine HCG, Qual NEGATIVE Nasal Adenovirus (PCR) NOT DETECTED Nasal B. parapertussis DNA (PCR) NOT DETECTED Nasal Coronavir 229E PCR NOT DETECTED Nasal Coronavir HKU1 PCR NOT DETECTED Nasal Coronavir NL63 PCR NOT DETECTED Nasal Coronavir OC43 PCR NOT DETECTED Nasal Enterovir/Rhinovir PCR NOT DETECTED Nasal Influenza B PCR NOT DETECTED Nasal Influenza A PCR NOT DETECTED Nasal Parainfluen 1 PCR NOT DETECTED Nasal Parainfluen 2 PCR NOT DETECTED Nasal Parainfluen 3 PCR NOT DETECTED Nasal Parainfluen 4 PCR NOT DETECTED Nasal RSV (PCR) NOT DETECTED Nasal B.pertussis DNA PCR NOT DETECTED Nasal C.pneumoniae (PCR) NOT DETECTED Ryan Human Metapneumo PCR NOT DETECTED Nasal M.pneumoniae (PCR) NOT DETECTED Nasal SARS-CoV-2 (PCR) NOT DETECTED 10/06/23 10/06/23 21:20 21:20 WBC RBC Hgb Hct MCV MCH MCHC RDW Plt Count MPV Neut # (Auto) Lymph # (Auto) [place] # (Auto) Eos # (Auto) Baso # (Auto) Absolute Nucleated RBC Nucleated RBC % Sodium 136 Potassium 3.5 Chloride 105 Carbon Dioxide 21 Anion Gap 10.0 BUN 6 Creatinine 0.7 Estimated GFR (MDRD) 95 Glucose 106 H Lactic Acid 1.8 Calcium 9.8 Total Bilirubin 0.4 AST 13 ALT 27 Alkaline Phosphatase 47 Total Protein 7.1 Albumin 4.2 Globulin 2.9 Albumin/Globulin Ratio 1.4 Lipase 15 Urine Color Urine Clarity Urine pH Ur Specific [place] Urine Protein Urine Glucose (UA) Urine Ketones Urine Occult Blood Urine Nitrite Urine Bilirubin Urine Urobilinogen Ur Leukocyte Esterase Ur Microscopic Review Urine Culture Comments Urine HCG, Qual Nasal Adenovirus (PCR) Nasal B. parapertussis DNA (PCR) Nasal Coronavir 229E PCR Nasal Coronavir HKU1 PCR Nasal Coronavir NL63 PCR Nasal Coronavir OC43 PCR Nasal Enterovir/Rhinovir PCR Nasal Influenza B PCR Nasal Influenza A PCR Nasal Parainfluen 1 PCR Nasal Parainfluen 2 PCR Nasal Parainfluen 3 PCR Nasal Parainfluen 4 PCR Nasal RSV (PCR) Nasal B.pertussis DNA PCR Nasal C.pneumoniae (PCR) Ryan Human Metapneumo PCR Nasal M.pneumoniae (PCR) Nasal SARS-CoV-2 (PCR) PD Medical Decision Making - ED course Complexity details: reviewed results, re-evaluated patient, d/w patient, d/w family ED course: Patient is a 38-year-old female presenting for evaluation of pain at her incision site from having her spinal cord stimulator recently have a battery change. She has a normal neuro exam. She does have a low-grade temperature of 37.9 but no true fevers here. CBC with mild leukocytosis, chemistries unreveal ing,Urine is negative for infection. She does have mild erythema around her surgical site but no drainage or fluctuance. A CT scan was obtained which shows expected postoperative changes but no signs of an abscess or foreign body. Patient did require multiple doses of narcotic pain medication for adequate pain relief. She states that prior to the surgery her daily pain was around a 5 or 6. Her spinal cord stimulator has not worked in 2 years. They have not restarted it with the battery replacement but it is not at her settings that they were at 2 years ago and will still need to be adjusted. Therefore I do not suspect that her pain today is significantly different than her baseline pain but may be slightly increased related to recent surgery and inflammation at the site. She is currently on cephalexin. We will add Bactrim for additional coverage. Blood cultures are pending. Patient counseled on need for close follow-up with outpatient specialist as well as concerning symptoms to return for. Patient is ambulatory at discharge. Departure - Departure Disposition: 01 Home, Self Care Clinical Impression: Cellulitis, Post-operative pain Condition: Stable Instructions: ED Infec Skin Cellulitis Prescriptions: Sulfamethox/Trimeth 800/160 [Bactrim Ds 800/160] 1 each PO BID #14 tablet Comments: Your CAT scan does not show signs of an abscess or any foreign body at your surgical site. You do seem to have a skin infection and are currently on cephalexin which I would recommend continuing. I would also recommend another antibiotic which I have sent a prescription for to [facility] in [place] called Bactrim. On Sunday would recommend follow-up with calling your pain management doctor Who performed the procedure to discuss your increased pain as well as the fact that we have added an additional antibiotics for some redness seen at the surgical site to see if they can evaluate you for close follow-up. We have also sent blood cultures tonight we will notify you of any abnormal results. Return to the emergency department with any worsening symptoms. Forms: PCP List Discharge Date/Time: 10/07/23 00:26
--- NOTE | 2023-10-06 23:55 | CT Report ---
PROCEDURE: ABDOMEN/PELVIS W INDICATIONS: R back pain/red at surg site. CONTRAST: Nonionic 100 ML OMNI 300 No oral contrast TECHNIQUE: After the administration of nonionic contrast, 5 mm thick sections acquired from the diaphragms to th e symphysis. 5 mm thick coronal and sagittal reformats were acquired. For radiation dose reduction, the following was used: automated exposure control, adjustment of mA and/or kV according to patient size. COMPARISON: Prior CT scanning abdomen/pelvis 06/01/2022 FINDINGS: Image quality: Excellent. Lung bases and heart: Unremarkable. Liver: No solid mass. Gallbladder and biliary tree: Normal. Spleen: No splenomegaly. Pancreas: No pancreatic ductal dilation. Adrenals: No adrenal nodule. Kidneys and ureters: No hydronephrosis. No renal cystic lesion which requires follow up. No solid mas s. Bowel and peritoneum: No bowel distension. No pathologic free fluid. Lymph nodes: No central or retroperitoneal adenopathy. Vessels: No infrarenal aortic aneurysm. PELVIS Reproductive organs: Unremarkable. Bladder: No abnormal wall thickening, accounting for underdistension. Pelvic lymph nodes: No pelvic adenopathy by size criteria. Bones: No aggressive osseous abnormality. Other: No significant ventral or inguinal hernia. Within the area of the operative intervention clini chauncey reported to represent replacement of a battery for spinal IMPRESSION: Expected postoperative appearance in the area of reported recent surgical intervention at the right s uperficial flank area, where a reported battery replacement appears to have been performed. No absces s or unexpected foreign body in this area. Reviewed by: Gagandeep Crowell MD on 10/06/2023 11:54 PM PST Approved by: Gagandeep Crowell MD on 10/06/2023 11:54 PM PST Station ID: [id number]
[2023-10-07] MEDS ORDERED: oxyCODONE 5 MG TABLET PO STA (00:07)
[2023-10-07] MEDS ORDERED: SULFAMETH/TRIMETH DS 800/160 MG TABLET PO STA (00:07)
[2023-10-07 00:24] VITALS: BP 115/61
[2023-10-07 00:34] VITALS: O2SAT 96
[2023-10-07] MEDS ORDERED: iohexoL-300 100 ML VIAL IVP ONE (04:25)
== END 2023-10-07 00:26 | disposition home or self-care (01) ==
LOC: ED 20:27
DX: G89.18 Other acute postprocedural pain (principal); L03.319 Cellulitis of trunk, unspecified; I10 Essential (primary) hypertension
CPT/HCPCS: 36415; 74177; 80053; 81003; 81025; 83605; 83690; 85025; 87040; 87633; 96374; 96375; 96376; 99284; 99285; A9270; J1170; Q9967; 81001; 87086